=== PATIENT | male | born 1990 | race Caucasian/White ===

== ENCOUNTER 2024-04-01 10:06 | Outpatient (CLI) | payer BC, SELFPAY ==
--- NOTE | ~2024-04-01 | XR_ITS ---
Right elbow Technique: AP, oblique, and lateral views were obtained. Clinical History: Pain Findings: No acute fracture or dislocation is seen. Osseous alignment is anatomic. Joint spaces are p reserved. There is no displacement of the fat pads, and soft tissues are unremarkable. Impression: Unremarkable radiographs. Reviewed, dictated and finalized at location . Impression: Unremarkable radiographs.
== END 2024-04-01 10:07 ==
LOC: GOSHIMG 10:07
PROVIDERS: PCP Family Medicine; Visit Provider Nurse Practitioner Family
DX: M25.521 Pain in right elbow (principal)
CPT/HCPCS: 73080

== ENCOUNTER 2024-04-26 14:56 | Outpatient (RCR) | payer BC, SELFPAY ==
--- NOTE | 2024-04-26 16:01 | OTOPEVAL1 ---
Assessment and note entered by Vinnie Granado, FAYE/Jesse, CHT Evaluation Information Assessment Status Evaluation Diagnosis Bilateral elbow pain Subjective Information Patient reports popping sensation in bilateral medial elbows when working out, specifically when doing triceps strengthening/dips. He feels a popping or snapping sensation in the medial elbow. He reports it's become so painful that he's modified his triceps workouts. Denies pain with gripping. Reported Pain Level Pain Score 0: Self Report Additional Pain Score Comments No pain at rest. Pain with dips becomes so painful that he cannot do the exercise. Assessment OT Clinical Summary Patient referred to OT with bilateral elbow pain. We were able to recreate the snapping sensation at the medial elbow today with isolating the triceps with a theraband. During the exercise he appears to be feeling the ulnar nerve sublux over the medial epicondyle. With palpation, the ulnar nerve is tender proximally near the medial intermuscular septum. After some soft tissue work here and some stretching the nerve snapping appeared to be reduced. Issued stretching, strengthening, and nerve glides for patient to work on for improved flexibility. Plan to follow up with patient in 2 weeks to assess progress and evaluate readiness for discharge vs continued therapy visits. Plan of Care Interventions Therapeutic Exercise,Manual Therapy,Ultrasound OT Services Indicated Yes Treatment Frequency and 1x/week for 3 visits Duration These treatments will address the objective and functional deficits as defined above. The patient will be advanced safely and appropriately in order for the patient to progress towards his/her prior level of function. Additional exercises will be introduced and as well as a comprehensive home exercise program upon discharge, if needed, ?to ensure carryover of functional gains achieved in the clinic. This treatment plan has been reviewed and agreement upon by the patient.
--- NOTE | 2024-06-24 14:38 | OTOPDC ---
Assessment and note entered by Vinnie Granado, FAYE/Jesse, CHT OT Discharge Notification 06/24/24 OT Clinical Summary Patient initially evaluated by OT on 04/26/24 with bilateral elbow pain. He cancelled his follow up appointment and has not rescheduled a follow up. Discharging from OT services at this time.
== END 2024-06-24 15:03 | disposition home or self-care (01) ==
LOC: ANHGOSHOT 14:56
PROVIDERS: PCP Family Medicine; Visit Provider Nurse Practitioner Family
DX: M25.529 Pain in unspecified elbow (principal)
CPT/HCPCS: 97110; 97140; 97166

== ENCOUNTER 2024-08-25 14:17 | Outpatient (CLI) | payer BC, SELFPAY ==
--- NOTE | ~2024-08-25 | MR_ITS ---
EXAMINATION: MR hip LT wo con DATE: 08/25/2024 15:10 INDICATION: Left hip pain. TECHNIQUE: Magnetic resonance imaging (MRI) of the left hip was performed without intravenous contras t. COMPARISON: None FINDINGS: Bones/cartilage: Alignment is normal. No fracture. There is mild lumbar spondylosis. The femoral head/neck morphologie s are normal. Small [id number] images of left hip demonstrate normal cartilage. Labrum: The left acetabular labrum is intact. Fluid: There is no hip joint effusion. No trochanteric bursitis. Soft tissues: There is mild tendinopathy of the hamstring origins bilaterally. The iliopsoas tendons are normal. Th ere is mild bilateral gluteus minimus tendinopathy. The gluteus medius tendons are normal. IMPRESSION: 1. No specific etiology for the patient's symptoms. Reviewed, dictated and finalized at location A.
== END 2024-08-25 14:18 | disposition home or self-care (01) ==
LOC: GOSHIMG 14:18
PROVIDERS: PCP Family Medicine; Visit Provider Nurse Practitioner Family
DX: M25.552 Pain in left hip (principal); M79.605 Pain in left leg
CPT/HCPCS: 73721

== ENCOUNTER 2024-08-31 15:05 | Outpatient (CLI) | payer BC, SELFPAY ==
--- NOTE | ~2024-08-31 | XR_ITS ---
Lumbosacral Spine: AP, oblique, and lateral views Clinical History: Pain Findings: There are 6 lumbar type vertebral bodies. The normal lordotic curve is maintained. The patricia tebral bodies and posterior elements are intact. The intervertebral disc spaces are preserved. The sacroiliac joints are normally outlined. Impression: 6 lumbar type vertebral bodies. No other significant findings. Reviewed, dictated and finalized at location . Impression: 6 lumbar type vertebral bodies. No other significant findings.
== END 2024-08-31 15:06 | disposition home or self-care (01) ==
LOC: GOSHIMG 15:06
PROVIDERS: PCP Family Medicine; Visit Provider Family Medicine
DX: M54.42 Lumbago with sciatica, left side (principal); M79.605 Pain in left leg
CPT/HCPCS: 72110

== ENCOUNTER 2024-10-08 13:38 | Outpatient (CLI) | payer BC, SELFPAY ==
--- NOTE | ~2024-10-08 | MR_ITS ---
EXAMINATION: MR lumbar spine wo con DATE: 10/08/2024 14:09 INDICATION: Lumbago with left-sided sciatica TECHNIQUE: Magnetic resonance imaging (MRI) of the lumbar spine was performed without intravenous con trast. Sequences included sagittal T2-weighted FSE, sagittal T2-weighted FS FSE, sagittal T1-weighted FSE, and axial T2-weighted FSE. COMPARISON: None FINDINGS: Alignment is normal. Vertebral body heights are normal. Normal marrow signal. Disc desiccation with mild disc height loss at L4-L5. The conus medullaris terminates at L1. There is normal signal in the caudal spinal cord. Paravertebral soft tissues are unremarkable. The following disc levels are specif ically discussed: T11-T12: The disc does not extend beyond the endplate margin. There is no facet osteoarthritis. There is no neural foraminal stenosis. There is no central canal stenosis. T12-L1: Disc is minimally bulging. There is mild right facet joint osteoarthritis. There is no neural foraminal stenosis. There is no central canal stenosis. L1-L2: Disc is mildly bulging. There is mild bilateral facet joint osteoarthritis. There is minimal b ilateral neural foraminal stenosis. There is minimal central canal stenosis. L2-L3: Disc is mildly bulging. There is mild bilateral facet joint osteoarthritis. There is minimal b ilateral neural foraminal stenosis. There is minimal central canal stenosis. L3-L4: Disc is mildly bulging. There is mild right and mild to moderate left facet joint osteoarthrit is. There is mild bilateral neural foraminal stenosis. There is mild central canal stenosis. L4-L5: Mild to moderate diffuse disc bulge with superimposed annular fissure. There is mild bilateral facet joint osteoarthritis. There is mild to moderate bilateral neural foraminal stenosis. There is mild central canal stenosis. L5-S1: The disc does not extend beyond the endplate margin. There is moderate right and mild to moder ate left facet joint osteoarthritis. There is no neural foraminal stenosis. There is no central canal stenosis. IMPRESSION: 1. Minimal to mild lumbar spondylosis. 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
== END 2024-10-08 13:39 | disposition home or self-care (01) ==
LOC: GOSHIMG 13:39
PROVIDERS: PCP Family Medicine; Visit Provider Family Medicine
DX: M54.42 Lumbago with sciatica, left side (principal); M47.896 Other spondylosis, lumbar region
CPT/HCPCS: 72148

== ENCOUNTER 2024-10-20 15:52 | Emergency (ER) | payer BC, SELFPAY ==
[2024-10-20 16:01] VITALS: BP 139/81; PULSE 82; RESP 16; TEMP 36.7; O2SAT 100
--- NOTE | 2024-10-20 16:06 | ED_ITS ---
HPI - Male Genitourinary General Chief complaint: Urogenital-Male Stated complaint: left testicle pain, urinary fequency Source: patient and RN notes reviewed Mode of arrival: ambulatory Limitations: no limitations History of Present Illness HPI Narrative: 34 y/o male presented for c/o left testicular pain and swelling x3 days, and increased urinary frequency x1 week. Testicular Pain is worse with jogging or any rubbing onto the clothing, rating 8/10 at worst. Not taking anything for pain. Denies any concern for an STD at this time. Denies radiating pain, hematuria, nausea, vomiting, abdominal pain, flank pain, constipation, diarrhea, fevers or chills. Related Data Allergies Allergy/AdvReac Type Severity Reaction Status Date / Time No Known Allergies Allergy Mild Verified 10/20/24 16:14 Review of Systems Review of Systems: CONSTITUTIONAL: Denies body aches, fever, chills, or sweats. CARDIOVASCULAR: Denies chest pain, palpitations, or edema. RESPIRATORY: Denies cough or dyspnea. GASTROINTESTINAL: Denies abdominal pain, nausea, vomiting, or diarrhea. GENITOURINARY: Reports testicular pain, urinary frequency, denies dysuria, urgency, hematuria, flank pain SKIN: Denies rash, itching, or wounds. MUSCULOSKELETAL: Denies back pain or myalgia. [facility], [facility] Past Medical History Medical History (Updated 10/20/24 @ 16:26 by Steph Abrams APRN) Migraine without aura, not intractable, with status migrainosus OCD (obsessive compulsive disorder) Family History Family History Other Family history of headache disorder Social History Social History Smoking status: Never smoker Alcohol intake: current Comments At time of signature, I have reviewed and agree with nursing past medical, surgical, social and family history unless otherwise noted. Please see nursing chart for further information. There is no relevant family history pertinent to the presenting complaint Exam Narrative: GENERAL: Well-appearing ENT: Mucous membranes pink and moist. NECK: Normal AROM. Supple. CHEST: No respiratory distress. Clear to auscultation. HEART: Regular rate and rhythm. ABDOMEN: Soft, nontender, nondistended, normal active bowel sounds. No inguinal tenderness : Mild left testicular swelling and tenderness with palpation. No open wounds or apparent abscess. No urethral discharge. SKIN: Warm, dry, no rash. NEURO: Alert and oriented x3. Gait steady. PSYCH: Normal affect. Course Course Emergency Course: Patient is aware of diagnosis, understands and agrees to treatment plan. Anticipatory guidance given. Patient agrees to follow-up as directed and is aware of reasons to seek care at the emergency department. Portions of this record may have been created with voice recognition software Level of Care: Express Care Visit Vital Signs Vital signs: Vital Signs Temperature 98.1 F 10/20/24 16:01 Pulse Rate 82 10/20/24 16:01 Respiratory Rate 16 10/20/24 16:01 Blood Pressure 139/81 10/20/24 16:01 Pulse Oximetry 100 10/20/24 16:01 Temperature 98.1 F 10/20/24 16:01 Pulse Rate 82 10/20/24 16:01 Respiratory Rate 16 10/20/24 16:01 Blood Pressure 139/81 10/20/24 16:01 Pulse Oximetry 100 10/20/24 16:01 Reviewed MDM - Male Genitourinary MDM Narrative Medical decision making narrative: Pt presented with c/o left testicular pain and swelling. Advised ER transfer. Differential Diagnosis Differential diagnosis: Likely urinary tract infection, urethritis, epididymitis, genital herpes simplex, prostatitis and inguinal hernia Discharge Plan Discharge Clinical Impression: Left testicular pain Condition: Stable Prescriptions: No Action sumatriptan succinate 100 mg tablet See Rx Instructions .ROUTE .COMPLEX Qty: 27 3RF Dose Instruction: TAKE 1 TABLET AT ONSET OF HEADACHE. IF NO RELIEF, MAY REPEAT 1 TABLET IN 2 HOURS. MAX 2 TABLETS IN 24 HOURS. Rx Instructions: TAKE 1 TABLET AT ONSET OF HEADACHE. IF NO RELIEF, MAY REPEAT 1 TABLET IN 2 HOURS. MAX 2 TABLETS IN 24 HOURS. alprazolam [Xanax] 0.25 mg tablet 0.25 mg PO TID Qty: 30 1RF finasteride [Propecia] 1 mg tablet 1 mg PO DAILY Qty: 90 3RF Aimovig Autoinjector 140 mg/mL auto-injector 140 mg subcut MONTHLY Qty: 1 5RF Follow-up/Referrals: Kai Massey MD [Primary Care Provider] - Time of Disposition: 16:25
== END 2024-10-20 16:20 | disposition short-term general hospital (02) ==
PROVIDERS: Emergency Provider Nurse Practitioner Family; PCP Family Medicine
DX: N50.812 Left testicular pain (principal)
CPT/HCPCS: 99212; G0463

== ENCOUNTER 2024-10-20 16:40 | Emergency (ER) | payer BC, SELFPAY ==
--- NOTE | ~2024-10-20 | US_ITS ---
EXAMINATION: US scrotum doppler DATE: 10/20/2024 18:33 INDICATION: Left testicular pain TECHNIQUE: Testicular sonogram utilizing grayscale and Doppler COMPARISON: 09/24/2016 FINDINGS: The right testis measures 6.1 x 3.3 x 2.9 cm. The left testis measures 4.3 x 2.8 x 2.1 cm. Normal gra yscale the right testis. The left testis demonstrates a striated pattern of hypoechoic echogenicity a long with numerous tiny echogenic calcifications consistent with left testicular microlithiasis. Ther e is normal vascular flow to both testes. The right epididymis is normal with normal vascular flow. T he left epididymis is normal with normal vascular flow. Minimal left hydrocele. Chronic left-sided va ricocele with vessels measuring up to 4 mm which augment with Valsalva. IMPRESSION: 1. Normal vascular flow to the bilateral testes and epididymides. 2. Normal right testis and stable appearance since 2015 of a relatively mildly atrophic left testis w ith striated pattern of echogenicity and prominent microlithiasis which is of indeterminate etiology. 3. Minimal left hydrocele and chronic left varicocele. Reviewed, dictated and finalized at location A. 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 Normal vascular flow to the bilateral testes and epididymides. 2. Normal right testis and stable appearance since 2015 of a relatively mildly atrophic left testis with striated pattern of echogenicity and prominent microl ithiasis which is of indeterminate etiology. 3. Minimal left hydrocele and chronic left varicocele.
[2024-10-20 16:41] VITALS: BP 157/82; PULSE 81; RESP 18; TEMP 36.2; O2SAT 100
--- NOTE | 2024-10-20 17:57 | ED.MALEGU ---
HPI - Male Genitourinary General Chief complaint: Urogenital-Male Stated complaint: left testicular pain Time Seen by Provider: 10/20/24 17:10 Source: patient Mode of arrival: ambulatory Limitations: no limitations History of Present Illness HPI Narrative: this is a 34-year-old male that presents to the emergency department for testicular pain. Reports he has been having urinary frequency over the last week. Last couple of days he is noted pain and swelling to the left testicle. Denies fevers, dysuria, or hematuria. Related Data Allergies Allergy/AdvReac Type Severity Reaction Status Date / Time No Known Allergies Allergy Mild Verified 10/20/24 16:14 Review of Systems Review of Systems: CONSTITUTIONAL: Denies fever GASTROINTESTINAL: Denies abdominal pain, nausea, vomiting GENITOURINARY: Denies dysuria or hematuria. All systems reviewed & are unremarkable except as noted in HPI and below PMFSH Past Medical History Medical History (Updated 10/20/24 @ 19:06 by Leonor Hutchinson PA-C) Migraine without aura, not intractable, with status migrainosus OCD (obsessive compulsive disorder) Family History Family History Other Family history of headache disorder Social History Social History Smoking status: Never smoker Alcohol intake: current Exam Narrative: GENERAL: Well-appearing, well-nourished, and in no acute distress. HEAD: Normocephalic, atraumatic. EYES: EOMI. CHEST: No respiratory distress. HEART: Regular rate EXTREMITIES: Normal range of motion. No edema. SKIN: Warm, dry, no rash. NEURO: No focal deficits. Alert and oriented x3. PSYCH: Normal mood and affect Course Course Emergency Course: patient updated on his workup and agrees with plan of care Vital Signs Vital signs: Vital Signs Temperature 97.1 F L 10/20/24 16:41 Pulse Rate 81 10/20/24 16:41 Respiratory Rate 18 10/20/24 16:41 Blood Pressure 157/82 H 10/20/24 16:41 Pulse Oximetry 100 10/20/24 16:41 Oxygen Delivery Room Air 10/20/24 16:41 Temperature 97.1 F L 10/20/24 16:41 Pulse Rate 81 10/20/24 16:41 Respiratory Rate 18 10/20/24 16:41 Blood Pressure 157/82 H 10/20/24 16:41 Pulse Oximetry 100 10/20/24 16:41 Oxygen Delivery Room Air 10/20/24 16:41 MDM - Male Genitourinary MDM Narrative Medical decision making narrative: patient presents the emergency department for left testicular pain. Urine without evidence of infection. Chlamydia, gonorrhea and Trichomonas tests are negative. Scrotal ultrasound shows normal vascular flow to the bilateral testes and epididymis. Stable appearance mildly atrophic left testes with prominent microlithiasis. Minimal left hydrocele and chronic varicocele. Patient updated on his workup and agree with plan of care. Will be given follow-up with urology. He was given warnings to return to the ER Differential Diagnosis Differential diagnosis: Likely urinary tract infection, urethritis, epididymitis and other ( orchitis, varicocele, testicular torsion, STD) Lab Data Attestation: I reviewed the patient's lab results. Labs: Lab Results 10/20/24 Range/Units 17:51 Urine Color Yellow (Yellow) Urine Appearance Clear (Clear) Urine pH 7.0 (5.0-9.0) Ur Specific [place] 1.014 (1.001-1.035) Urine Protein Negative (Negative) mg/dL Urine Glucose (UA) Negative (Negative) mg/dL Urine Ketones Negative (Negative) mg/dL Ur Blood (Man) Negative (Negative) Urine Nitrate Negative (Negative) Urine Bilirubin Negative (Negative) Urine Urobilinogen 1.0 (<2.0) mg/dL Leukocyte Esterase Rfl Negative (Negative) BISHOP/UL C. trachomatis (PCR) Not detected (NOT DETECTE) N. gonorrhoeae (PCR) Not detected (NOT DETECTE) T. vaginalis (PCR) Not detected (NOT DETECTE) Imaging Data Radiologist's impression: ITS Impressions Scrotum Ultrasound 10/20/24 18:52 IMPRESSION: 1. Normal vascular flow to the bilateral testes and epididymides. 2. Normal right testis and stable appearance since 2015 of a relatively mildly atrophic left testis with striated pattern of echogenicity and prominent microlithiasis which is of indeterminate etiology. 3. Minimal left hydrocele and chronic left varicocele. Critical Care Time Critical Care Time Critical Care Time: No Discharge Plan Discharge Clinical Impression: Varicocele, Left testicular pain, Testicular microlithiasis Patient Disposition: Home, Self-Care Condition: Stable Instructions: Testicle Pain (ED) Additional Instructions: Return to the ER if you experience fever, abdominal pain with nausea and vomiting, you are unable to keep down liquids or solids, pain or burning with urination, blood in the urine or any other symptoms that are concerning to you Were good scrotal supporting underwear. Tylenol or anti-inflammatories as needed for pain Follow up with urology Prescriptions: No Action sumatriptan succinate 100 mg tablet See Rx Instructions .ROUTE .COMPLEX Qty: 27 3RF Dose Instruction: TAKE 1 TABLET AT ONSET OF HEADACHE. IF NO RELIEF, MAY REPEAT 1 TABLET IN 2 HOURS. MAX 2 TABLETS IN 24 HOURS. Rx Instructions: TAKE 1 TABLET AT ONSET OF HEADACHE. IF NO RELIEF, MAY REPEAT 1 TABLET IN 2 HOURS. MAX 2 TABLETS IN 24 HOURS. alprazolam [Xanax] 0.25 mg tablet 0.25 mg PO TID Qty: 30 1RF finasteride [Propecia] 1 mg tablet 1 mg PO DAILY Qty: 90 3RF Aimovig Autoinjector 140 mg/mL auto-injector 140 mg subcut MONTHLY Qty: 1 5RF Follow-up/Referrals: Socorro Samaniego MD [Physician] - Kai Massey MD [Primary Care Provider] -
[2024-10-20 17:59] LABS: Add Urine Microscopic? NO; Appearance Urine Clear (Clear); Bilirubin Urine Negative (Negative); Blood Urine Negative (Negative); Color Urine Yellow (Yellow); Glucose Urine UA Negative (Negative); Ketones Urine Negative (Negative); Leukocyte Esterase Ur Negative LEU/UL (Negative); Nitrate Urine Negative (Negative); Protein Urine Negative (Negative); Specific Grav Ur 1.014 (1.001-1.035)
[2024-10-20 19:36] LABS: Trichomonas Vag PCR NOT DETECTED (NOT DETECTE)
[2024-10-20 20:00] LABS: Chlamydia trachomatis NOT DETECTED (NOT DETECTE); Neisseria gonorrhoeae PCR NOT DETECTED (NOT DETECTE)
[2024-10-20 20:30] VITALS: BP 120/75; PULSE 62; RESP 18; TEMP 36.4; O2SAT 100
== END 2024-10-20 20:31 | disposition home or self-care (01) ==
PROVIDERS: Emergency Provider Physician Assistant; PCP Family Medicine
DX: I86.1 Scrotal varices (principal); N50.89 Other specified disorders of the male genital organs
CPT/HCPCS: 76870; 81003; 87491; 87591; 87661; 93976; 99284

== ENCOUNTER 2024-11-15 06:26 | Inpatient (IN) | payer BC, SELFPAY ==
[2024-11-15] VITALS (23 sets, daily range): BP systolic 120–160; BP diastolic 67–84; PULSE 62–97; RESP 10–22; TEMP 36.6–37.3; O2SAT 94–100; BMI 26.6
--- NOTE | ~2024-11-15 | CT_ITS ---
EXAMINATION: CTA chest abdomen pelvis DATE: 11/15/2024 07:47 INDICATION: Left upper chest pain. Low back pain. Testicular pain. TECHNIQUE: Computed tomographic angiography (CTA) of the chest, abdomen, and pelvis was performed wit h 100 mL Omnipaque-350 intravenous contrast. Automated exposure control and iterative reconstruction technique were employed. The dose-length product was 724.21 mGy-cm. Maximum intensity projection 3D-r econstructions of the aorta and other arteries were constructed by the technologist on a separate wor kstation. COMPARISON: None. FINDINGS: CHEST CTA: There is minimal atelectasis in right lower lobe. No pleural effusion. The heart size is normal. No p ericardial effusion. Thoracic aorta is normal. There is no pulmonary embolus. There is mild thoracic spondylosis. ABDOMEN AND PELVIS CTA: There are cysts in the liver measuring up to 5 mm. The gallbladder, spleen, pancreas, adrenal glands, and kidneys are normal. There are no dilated loops of bowel. The appendix is normal. There is a 7.1 x 4.9 x 7.5 cm mass in left para-aortic region. There is no free intraperitoneal fluid. Abdominal aor ta is normal. There is no significant stenosis of celiac axis, superior mesenteric artery, the renal arteries, or inferior mesenteric artery. There is mild lumbar spondylosis. IMPRESSION: 1. 7.1 x 4.9 x 7.5 cm left para-aortic mass suspicious for malignancy such as sarcoma. CT-guided biop sy is recommended. 2. Normal aorta. Reviewed, dictated and finalized at location A. CTOR OF PLANT OPERATIONS IMPRESSION: 1. 7.1 x 4.9 x 7.5 cm left para-aortic mass suspicious for malignancy such as s arcoma. CT-guided biopsy is recommended. 2. Normal aorta.
--- NOTE | ~2024-11-15 | CT_ITS ---
EXAMINATION: CT biopsy abdomen percutaneous DATE: 11/15/2024 12:12 INDICATION: Left para-aortic mass. TECHNIQUE: The procedure including the risks, benefits, and alternatives was discussed with the patie nt. Risks discussed included bleeding and infection. The patient verbalized understanding of the risk s and agreed to proceed. The skin overlying the liver was prepped and draped in usual sterile fashio n. Anesthetic was administered with 1% lidocaine subcutaneously. A 16 gauge outer needle was advanc ed under CT guidance into the liver. An 18 gauge core biopsy needle was then used to obtain 3 core bi opsy specimens. The mA was adjusted according to patient size. Iterative reconstruction technique was employed. The dose-length product was 191.79 mGy-cm. The needle was removed and the entry site was c leaned and dressed. There were no immediate complications. FINDINGS: CT images demonstrate the outer needle tip adjacent to a 7 cm left para-aortic mass. IMPRESSION: 1. CT-guided core needle biopsy of a left para-aortic mass. Reviewed, dictated and finalized at location A. RISK AND ASSURANCE MANAGER
--- NOTE | ~2024-11-15 | XR_ITS ---
EXAMINATION: XR chest 1V portable DATE: 11/15/2024 06:48 INDICATION: Left chest and flank pain. TECHNIQUE: A single frontal view of the chest was obtained on 2 radiographs. COMPARISON: None. FINDINGS: There is no pneumonia, pleural effusion, or pneumothorax. The heart size is normal. IMPRESSION: 1. No acute cardiopulmonary disease. Reviewed, dictated and finalized at location A. ICAL SERVICES MANAGER
--- NOTE | 2024-11-15 06:27 | ECG_ITS ---
Test Date: 2024-11-15 06:34:37 Measurements Intervals [place] Rate: 80 P: 78 CO: 116 QRS: 57 QRSD: 108 T: 48 QT: 373 QTc: 433 Interpretive Statements SINUS RHYTHM WITH SHORT CO INTERVAL No previous ECG available for comparison Electronically Signed On 11-16-2024 14:51:15 VISION IMPAIRED TEACHER by Raman Christensen M.D.
[2024-11-15 06:43] LABS: Basophils Percent Auto 0.5 % (0.2-1.2); Eosinophils Absolute Auto 0.2 K/mm3 (0-0.3); Hematocrit 40.6 % (42.0-52.0); Hemoglobin 14.6 g/dL (14.0-18.0); Immature Granulocyte Absolute 0.02 K/mm3 (0.00-0.031); Immature Granulocyte Percent A 0.2 % (0-0.5); Lymphocytes Absolute Auto 3.53 K/mm3 (0.9-3.2); Lymphocytes Percent Auto 39.8 % (18.3-44.2); Mean Corpuscular Hemoglobin 29.6 pg (26-34); Mean Corpuscular Volume 82.4 fl (80-100); Mean Platelet Volume 9.2 fl (7.4-10.4); Monocytes Absolute Auto 0.8 K/mm3 (0.1-0.6); Monocytes Percent Auto 9.1 % (2.6-8.5); Neutrophils Absolute Auto 4.3 K/mm3 (1.3-6.7); Neutrophils Percent Auto 48.4 % (45.5-73.1); Platelet Count Result 252 k/mm3 (150-375); Red Blood Count 4.93 M/mm3 (4.6-6.20); White Blood Count 8.9 K/mm3 (4.5-10.0)
[2024-11-15 06:57] LABS: INR 1.1; Partial Thromboplastin Time 28.2 Seconds (22.3-36.8); Prothrombin Time 14.3 Seconds (11.1-14.7)
[2024-11-15 06:59] LABS: Alanine Aminotransferase 20 U/L (6-50); Albumin Level 4.4 g/dL (3.5-5.1); Alkaline Phosphatase 49 U/L (38-126); Anion Gap 5 mmol/L (4-12); Aspartate Amino Transferase 32 U/L (17-59); Bilirubin,Total 0.9 mg/dL (0.2-1.3); Blood Urea Nitrogen 21 mg/dL (9-20); Calcium 9.3 mg/dL (8.4-10.2); Carbon Dioxide 31 mmol/L (22-30); Chloride 104 mmol/L (98-107); Estimated CRCL calculation 96 ml/min; Estimated Glomerular Filt Rate > 60; Glucose 90 mg/dL (65-110); Lipase 87 U/L (23-300); Potassium 3.5 mmol/L (3.4-5.0); Sodium 140 mmol/L (137-145)
[2024-11-15 07:10] LABS: Troponin I < 0.012 ng/mL (0.000-0.034)
--- NOTE | 2024-11-15 07:39 | ED_ITS ---
HPI - Chest Pain General Chief Complaint: Chest Pain Stated Complaint: Chest pain Time Seen by Provider: 11/15/24 07:03 History of Present Illness HPI narrative: 34-year-old male with no significant pertinent past medical history aside from migraine headaches and chronic lumbar back pain. Patient presents to the emergency department today with chief complaint of 3 days of pleuritic and positional chest pain in the high left-sided chest. Patient states he was not doing anything particularly strenuous or murmur will and he had vague chest pain throughout the day 3 days ago that has been coming and going and worse with positional changes such as lying down flat and taking deep breaths. He also has a longstanding history of chronic left-sided sciatica and lumbago pain even though he has had negative CT and MRI imaging of his lumbar back, hip and has failed physical therapy outpatient without any improvement of his symptoms and previous medication regimen such as injections. He has also had complaints of left-sided testicular pain and was recently seen here in the emergency department. Patient has no known history of atherosclerosis, cardiac disease or any aortic pathology or any family history of such. Denies any difficulty breathing aside from the sharp pain when he takes deep breath. No nausea, vomiting, abdominal pain, fever, chills. No dysuria or hematuria. No present testicular pain, pain is mostly situated in his high left-sided chest wall and left-sided low back. Does not take any blood pressure medications. Related Data Allergies Allergy/AdvReac Type Severity Reaction Status Date / Time No Known Allergies Allergy Mild Verified 11/15/24 06:34 Review of Systems 2 Review of Systems: As reviewed above in HPI [facility] Past Medical History Medical History (Updated 11/15/24 @ 09:31 by Binu Duran MD) OCD (obsessive compulsive disorder) Migraine without aura, not intractable, with status migrainosus Family History Family History Other Family history of headache disorder Social History Social History Smoking status: Never smoker Alcohol intake: current Exam 2 Narrative: GENERAL: [Well-appearing, well-nourished, and in no acute distress.] HEAD: [Normocephalic, atraumatic.] EYES: [PERRLA and EOMI.] ENT: Nares clear, no rhinorrhea or epistaxis. Mucous membranes moist. NECK: Supple. CHEST: [Clear to auscultation. No respiratory distress.] HEART: [Regular rate and rhythm]. No murmur heard. [Normal peripheral pulses.] ABDOMEN: [Soft, nondistended], [nontender], [No rigidity or guarding] EXTREMITIES: Normal range of motion. [No edema.] SKIN: Warm, dry, no rash. NEURO: [No focal deficits]. Alert and oriented [x3.] PSYCH: [Normal mood and affect.] Course Vital Signs Vital signs: Vital Signs Temperature 36.6 C 11/15/24 06:30 Pulse Rate 81 11/15/24 06:30 Respiratory Rate 12 11/15/24 06:30 Blood Pressure 136/82 11/15/24 06:30 Pulse Oximetry 100 11/15/24 06:30 Oxygen Delivery Room Air 11/15/24 06:30 Temperature 36.6 C 11/15/24 06:30 Pulse Rate 70 11/15/24 08:16 Respiratory Rate 17 11/15/24 08:16 Blood Pressure 122/81 11/15/24 08:16 Pulse Oximetry 100 11/15/24 08:16 Oxygen Delivery Room Air 11/15/24 07:23 MDM - Chest Pain MDM Narrative Medical decision making narrative: 34-year-old male presenting with a constellation of complaints including left- sided upper chest pain, left-sided low back pain, intermittent left testicular pain which is absent presently. Patient states that he is mostly concerned about the chest pain S this is new for him for the last 3 days. Located in the left chest and worse with deep inhalation and lying down flat. He has had large unremarkable workup for his lumbago and sciatica type pain and treated conservatively with medications and physical therapy without any relief of his symptoms. He has no focal neurological deficits, no evidence of trauma, no recent injuries or illnesses. He has clear breath sounds throughout, does do elicit pain with the breathing in this chest. Vital signs are reassuring without any significant blood pressure concerns, tachycardia, fever, hypoxia. Patient is worried about his chest pain and progression from his left-sided symptoms including previous left testicular pain left-sided low back pain. Overall risks are very low for aortic pathology however all as consultation symptoms are unilateral on the left side and crossing the diaphragm which does raise suspicion for potential aortic symptoms. Very unlikely be ACS however his chest pain could be pleurisy, bronchitis, less likely pneumonia or pneumothorax. Overall I did discuss with the patient options going forward including laboratory studies and even CT imaging. Patient felt more comfortable with obtaining a angiogram to help better delineate his symptoms as he has had no explanation relief of his symptoms previously. Cardiac workup was ordered including EKG, chest x-ray, troponin, CT angiography of the chest abdomen pelvis with attention to the left side was ordered. Patient was provided Toradol for analgesia. Workup shows no leukocytosis or anemia. Normal platelets. Coagulation studies within normal limits. Electrolytes within normal limits, normal renal and hepatic function panel. Normal glucose. Undetectable troponin. Negative lipase. I looked at the chest x-ray and not see any kind of pneumonia, pleural effusion or any pneumothorax. Unremarkable per Radiology interpretation. CT angiography shows a very suspicious periaortic mass measuring 7.1 x 4.9 x 7.5 cm with differential including sarcoma with recommendations for CT-guided biopsy. Unremarkable normal appearing aorta otherwise. I re-evaluated the patient to improvement in his pain after medications and we discussed the CT imaging findings. I went over next steps with the patient including recommendations for CT-guided biopsy and will attempt to call the radiologist available to see if we can do this today or schedule this and see if we need to admit the patient for remainder of workup here. Awaiting call back from Radiology Department at this time. Spoke to Dr. Sigala from Radiology and they stated that CT-guided biopsy can happen today, Dr Walsh as currently in another biopsy but will be made aware of the case. Coagulation studies are obtained and normal. Patient's laboratory studies are otherwise unremarkable. He will be admitted for workup and guided biopsy today. Spoke to the hospitalist Dr. Li and we went over the patient's case, imaging studies and plan of care and patient will be admitted at this time to [facility]. Medical Records Data Attestation: I reviewed the patient's medical records. Lab Data Attestation: I reviewed the patient's lab results. 11/15/24 06:35 11/15/24 06:35 Labs: Lab Results 11/15/24 11/15/24 Range/Units 06:35 08:03 WBC 8.9 (4.5-10.0) K/mm3 RBC 4.93 (4.6-6.20) M/mm3 Hgb 14.6 (14.0-18.0) g/dL Hct 40.6 L (42.0-52.0) % MCV 82.4 (80-100) fl MCH 29.6 (26-34) pg MCHC 36.0 (32-36) g/dl RDW 12.0 (11.5-14.5) % Plt Count 252 (150-375) k/mm3 MPV 9.2 (7.4-10.4) fl Immature Gran % (Auto) 0.2 (0-0.5) % Neut % (Auto) 48.4 (45.5-73.1) % Lymph % (Auto) 39.8 (18.3-44.2) % Dunn % (Auto) 9.1 H (2.6-8.5) % Eos % (Auto) 2.0 (0-4.4) % Baso % (Auto) 0.5 (0.2-1.2) % Lymph # (Auto) 3.53 H (0.9-3.2) K/mm3 Dunn # (Auto) 0.8 H (0.1-0.6) K/mm3 Eos # (Auto) 0.2 (0-0.3) K/mm3 Baso # (Auto) 0.0 (0.0-0.1) K/mm3 Abs Immat Gran (auto) 0.02 (0.00-0.031) K/mm3 Absolute Neuts (auto) 4.3 (1.3-6.7) K/mm3 Absolute Nucleated RBC 0.000 (0.0-0.012) K/mm3 Nucleated RBC % 0.0 (0.0-0.2) % PT 14.3 (11.1-14.7) Seconds INR 1.1 APTT 28.2 (22.3-36.8) Seconds Sodium 140 (137-145) mmol/L Potassium 3.5 (3.4-5.0) mmol/L Chloride 104 (98-107) mmol/L Carbon Dioxide 31 H (22-30) mmol/L Anion Gap 5 (4-12) mmol/L BUN 21 H (9-20) mg/dL Creatinine 1.00 (0.7-1.3) mg/dL Estim Creat Clear Calc 96 ml/min Estimated GFR > 60 (59 - ) Glucose 90 (65-110) mg/dL Calcium 9.3 (8.4-10.2) mg/dL Total Bilirubin 0.9 (0.2-1.3) mg/dL AST 32 (17-59) U/L ALT 20 (6-50) U/L Alkaline Phosphatase 49 (38-126) U/L Troponin I < 0.012 (0.000-0.034) ng/mL Total Protein 8.0 (6.3-8.2) g/dL Albumin 4.4 (3.5-5.1) g/dL Lipase 87 (23-300) U/L Influenza A (RT-PCR) Negative (Negative) Influenza B (RT-PCR) Negative (Negative) RSV (RT-PCR) Negative (Negative) SARS-CoV-2 RNA (RT-PCR) Negative (Negative) Imaging Data Attestation: I personally reviewed and interpreted this imaging study as follows: My impression: Impressions Chest X-Ray 11/15/24 06:48 IMPRESSION: 1. No acute cardiopulmonary disease. Chest/Abdomen/Pelvis CTA 11/15/24 07:48 IMPRESSION: 1. 7.1 x 4.9 x 7.5 cm left para-aortic mass suspicious for malignancy such as sarcoma. CT-guided biopsy is recommended. 2. Normal aorta. Discharge Plan Discharge Clinical Impression: Abdominal mass, Chest pain on breathing, Back pain Patient Disposition: Still a Patient Condition: Stable Patient Language: Turkmen Prescriptions: No Action sumatriptan succinate 100 mg tablet See Rx Instructions .ROUTE .COMPLEX Qty: 27 3RF Dose Instruction: TAKE 1 TABLET AT ONSET OF HEADACHE. IF NO RELIEF, MAY REPEAT 1 TABLET IN 2 HOURS. MAX 2 TABLETS IN 24 HOURS. Rx Instructions: TAKE 1 TABLET AT ONSET OF HEADACHE. IF NO RELIEF, MAY REPEAT 1 TABLET IN 2 HOURS. MAX 2 TABLETS IN 24 HOURS. prednisone 10 mg tablet See Rx Instructions PO DAILY Qty: 42 0RF Rx Instructions: 6 po qdayx 2 days, 5 x 2days,4 x 2 d,3 x 2d,2 x 2d, 1 x 2 days PO daily; gabapentin 300 mg capsule 300 mg PO BID Qty: 30 0RF alprazolam [Xanax] 0.25 mg tablet 0.25 mg PO TID Qty: 30 1RF finasteride [Propecia] 1 mg tablet 1 mg PO DAILY Qty: 90 3RF Aimovig Autoinjector 140 mg/mL auto-injector 140 mg subcut MONTHLY Qty: 1 5RF Follow-up/Referrals: Kai Massey MD [Primary Care Provider] - Time of Disposition: 09:31
[2024-11-15] MEDS: KETOROLAC 15 MG/ML VIAL (*BKC) IV PUSH ×2 (08:06→18:09)
[2024-11-15 08:44] LABS: Influenza A QL RT-PCR Negative (Negative); Influenza B QL RT-PCR Negative (Negative); RSV RNA, RT-PCR Negative (Negative); SARS-CoV-2 RNA PCR Negative (Negative)
[2024-11-15] MEDS: ALPRAZolam (*CRX) 0.5 MG TABLET PO (09:18)
--- NOTE | 2024-11-15 09:22 | ECG_ITS ---
Test Date: 2024-11-15 09:27:04 Measurements Intervals [place] Rate: 75 P: 79 TN: 139 QRS: 61 QRSD: 110 T: 49 QT: 387 QTc: 432 Interpretive Statements SINUS RHYTHM Compared to ECG 11/15/2024 06:34:37 Short TN interval no longer present Electronically Signed On 11-16-2024 14:52:30 TRACK MECHANIC by Raman Christensen M.D.
[2024-11-15 10:00] LABS: Troponin I < 0.012 ng/mL (0.000-0.034)
--- NOTE | 2024-11-15 10:35 | ADMGEN ---
This patient, Kai Greene, was admitted to [facility] Surg Room 331-02. Patient/family oriented to hospital policies and general routines including ID bracelet, bed and alarms, visiting hours, pain management, procedures, bathroom and other care routines, personal items, smoking policy, room service/diet, and visiting hours. Information on how to activate the Rapid Response Team has been discussed. Patient/Family are encouraged to report perceived risks to care and to ask questions if they do not understand what they are told or what they should do.
--- NOTE | 2024-11-15 11:28 | PC.NURSE ---
Pt. down to get biopsy via wheelchair.
--- NOTE | 2024-11-15 12:11 | P.HP_ITS ---
H&P: HPI History of Present Illness Date/Time: 11/15/24 12:11 Chief Complaint: Left side flank pain. Narrative: 34-year-old with no past medical history presents to the hospital with left- sided flank pain. Found to have 7.1 x 4.9 x 7.5 cm left para-aortic mass suspicious for malignancy such as sarcoma on CT. CT-guided biopsy is recommended. [facility] Past Medical History Medical History (Updated 11/15/24 @ 12:15 by Josefina Dalton, NENA) OCD (obsessive compulsive disorder) Migraine without aura, not intractable, with status migrainosus Family History Family History Other Family history of headache disorder Social History Social History Smoking status: Never smoker Alcohol intake: never Substance use: never Do You Feel Safe in your Home?: Yes Lack of Transportation: No Lack of Food: Never True Current Housing: I Have Housing Concerned About Future Housing: No Difficulty Paying Gas/Electric Bills: No Difficulty Paying for Meds: No Currently Unemployed: No Education: Master's Degree or Higher Difficulty w/ Childcare or Family Care: No Spiritual care concerns: No Meds Home Medications and Allergies Home Medications ?Medication ?Instructions ?Recorded ?Confirmed ?Type finasteride 1 mg tablet (Propecia) 1 mg PO DAILY #90 tabs 02/04/24 11/15/24 Rx erenumab-aooe 140 mg/mL 140 mg subcut MONTHLY #1 mL 08/13/24 11/15/24 Rx subcutaneous auto-injector (Aimovig Autoinjector) gabapentin 300 mg capsule 300 mg PO BID #30 caps 11/11/24 11/15/24 Rx prednisone 10 mg tablet See Rx Instructions PO DAILY #42 11/11/24 11/15/24 Rx tabs alprazolam 0.25 mg tablet (Xanax) 0.25 mg PO TID PRN anxiety 11/15/24 11/15/24 History sumatriptan succinate 100 mg tablet See Rx Instructions .Route 11/15/24 11/15/24 History .COMPLEX PRN migraine headache Allergies Allergy/AdvReac Type Severity Reaction Status Date / Time No Known Allergies Allergy Mild Verified 11/15/24 10:41 Vital Signs Vital Signs - 24 hr 11/15/24 06:30 11/15/24 06:40 11/15/24 07:22 Temperature 98 F Pulse Rate 81 76 Respiratory Rate 12 Blood Pressure 136/82 Pulse Oximetry 100 100 Oxygen Delivery Room Air Room Air 11/15/24 07:22 11/15/24 07:23 11/15/24 07:38 Temperature Pulse Rate 76 68 Respiratory Rate 16 16 Blood Pressure 120/74 Pulse Oximetry 100 100 99 Oxygen Delivery Room Air Room Air 11/15/24 08:04 11/15/24 08:10 11/15/24 08:11 Temperature Pulse Rate 66 67 65 Respiratory Rate 15 10 L 17 Blood Pressure 123/69 Pulse Oximetry 100 100 99 Oxygen Delivery 11/15/24 08:15 11/15/24 08:16 11/15/24 08:17 Temperature Pulse Rate 62 70 68 Respiratory Rate 16 17 16 Blood Pressure 122/81 Pulse Oximetry 100 100 100 Oxygen Delivery 11/15/24 08:45 11/15/24 09:00 11/15/24 09:01 Temperature Pulse Rate 73 85 76 Respiratory Rate 17 22 H 12 Blood Pressure 160/80 H Pulse Oximetry 94 100 Oxygen Delivery 11/15/24 09:15 11/15/24 09:16 11/15/24 09:30 Temperature Pulse Rate 80 97 77 Respiratory Rate 12 19 13 Blood Pressure 137/80 Pulse Oximetry 100 98 100 Oxygen Delivery 11/15/24 09:45 11/15/24 10:00 11/15/24 10:15 Temperature Pulse Rate 80 84 80 Respiratory Rate 15 13 11 L Blood Pressure Pulse Oximetry 99 94 100 Oxygen Delivery 11/15/24 10:19 11/15/24 10:45 11/15/24 10:52 Temperature 99.1 F Pulse Rate 73 71 Respiratory Rate 18 20 Blood Pressure 126/84 Pulse Oximetry 99 100 Oxygen Delivery Room Air H&P: Results Labs Labs: Short CBC 11/15/24 Range/Units 06:35 WBC 8.9 (4.5-10.0) K/mm3 Hgb 14.6 (14.0-18.0) g/dL Hct 40.6 L (42.0-52.0) % Plt Count 252 (150-375) k/mm3 BMP 11/15/24 06:35 Sodium 140 Potassium 3.5 Chloride 104 Carbon Dioxide 31 H BUN 21 H Creatinine 1.00 Glucose 90 Calcium 9.3 Cardiac Enzymes 11/15/24 11/15/24 Range/Units 06:35 09:28 Troponin I < 0.012 < 0.012 (0.000-0.034) ng/mL Liver Function 11/15/24 Range/Units 06:35 Total Bilirubin 0.9 (0.2-1.3) mg/dL AST 32 (17-59) U/L ALT 20 (6-50) U/L Alkaline Phosphatase 49 (38-126) U/L Albumin 4.4 (3.5-5.1) g/dL Assessment and Plan Assessment and plan (1) Left kidney mass: Code(s): N28.89 - Other specified disorders of kidney and ureter Status: Acute Assessment and Plan: 7.1 x 4.9 x 7.5 cm left para-aortic mass suspicious for malignancy such as sarcoma. CT-guided biopsy is recommended. Plan for IR biopsy while in hospital
--- NOTE | 2024-11-15 12:42 | PM.IMHP ---
H&P: HPI History of Present Illness Date/Time: 11/15/24 12:42 Narrative: 34-year-old with no past medical history presents to the hospital with left-sided flank pain. Found to have 7.1 x 4.9 x 7.5 cm left para-aortic mass suspicious for malignancy such as sarcoma on CT. CT-guided biopsy is recommended. [facility] Past Medical History Medical History (Updated 11/15/24 @ 12:15 by Josefina Dalton, NENA) OCD (obsessive compulsive disorder) Migraine without aura, not intractable, with status migrainosus Family History Family History Other Family history of headache disorder Social History Social History Smoking status: Never smoker Alcohol intake: never Substance use: never Do You Feel Safe in your Home?: Yes Lack of Transportation: No Lack of Food: Never True Current Housing: I Have Housing Concerned About Future Housing: No Difficulty Paying Gas/Electric Bills: No Difficulty Paying for Meds: No Currently Unemployed: No Education: Master's Degree or Higher Difficulty w/ Childcare or Family Care: No Spiritual care concerns: No Meds Home Medications and Allergies Home Medications ?Medication ?Instructions ?Recorded ?Confirmed ?Type finasteride 1 mg tablet (Propecia) 1 mg PO DAILY #90 tabs 02/04/24 11/15/24 Rx erenumab-aooe 140 mg/mL 140 mg subcut MONTHLY #1 mL 08/13/24 11/15/24 Rx subcutaneous auto-injector (Aimovig Autoinjector) gabapentin 300 mg capsule 300 mg PO BID #30 caps 11/11/24 11/15/24 Rx prednisone 10 mg tablet See Rx Instructions PO DAILY #42 11/11/24 11/15/24 Rx tabs alprazolam 0.25 mg tablet (Xanax) 0.25 mg PO TID PRN anxiety 11/15/24 11/15/24 History sumatriptan succinate 100 mg tablet See Rx Instructions .Route 11/15/24 11/15/24 History .COMPLEX PRN migraine headache Allergies Allergy/AdvReac Type Severity Reaction Status Date / Time No Known Allergies Allergy Mild Verified 11/15/24 10:41 Vital Signs Vital Signs - 24 hr 11/15/24 06:30 11/15/24 06:40 11/15/24 07:22 Temperature 98 F Pulse Rate 81 76 Respiratory Rate 12 Blood Pressure 136/82 Pulse Oximetry 100 100 Oxygen Delivery Room Air Room Air 11/15/24 07:22 11/15/24 07:23 11/15/24 07:38 Temperature Pulse Rate 76 68 Respiratory Rate 16 16 Blood Pressure 120/74 Pulse Oximetry 100 100 99 Oxygen Delivery Room Air Room Air 11/15/24 08:04 11/15/24 08:10 11/15/24 08:11 Temperature Pulse Rate 66 67 65 Respiratory Rate 15 10 L 17 Blood Pressure 123/69 Pulse Oximetry 100 100 99 Oxygen Delivery 11/15/24 08:15 11/15/24 08:16 11/15/24 08:17 Temperature Pulse Rate 62 70 68 Respiratory Rate 16 17 16 Blood Pressure 122/81 Pulse Oximetry 100 100 100 Oxygen Delivery 11/15/24 08:45 11/15/24 09:00 11/15/24 09:01 Temperature Pulse Rate 73 85 76 Respiratory Rate 17 22 H 12 Blood Pressure 160/80 H Pulse Oximetry 94 100 Oxygen Delivery 11/15/24 09:15 11/15/24 09:16 11/15/24 09:30 Temperature Pulse Rate 80 97 77 Respiratory Rate 12 19 13 Blood Pressure 137/80 Pulse Oximetry 100 98 100 Oxygen Delivery 11/15/24 09:45 11/15/24 10:00 11/15/24 10:15 Temperature Pulse Rate 80 84 80 Respiratory Rate 15 13 11 L Blood Pressure Pulse Oximetry 99 94 100 Oxygen Delivery 11/15/24 10:19 11/15/24 10:45 11/15/24 10:52 Temperature 99.1 F Pulse Rate 73 71 Respiratory Rate 18 20 Blood Pressure 126/84 Pulse Oximetry 99 100 Oxygen Delivery Room Air H&P: Results Labs Labs: Short CBC 11/15/24 Range/Units 06:35 WBC 8.9 (4.5-10.0) K/mm3 Hgb 14.6 (14.0-18.0) g/dL Hct 40.6 L (42.0-52.0) % Plt Count 252 (150-375) k/mm3 BMP 11/15/24 06:35 Sodium 140 Potassium 3.5 Chloride 104 Carbon Dioxide 31 H BUN 21 H Creatinine 1.00 Glucose 90 Calcium 9.3 Cardiac Enzymes 11/15/24 11/15/24 Range/Units 06:35 09:28 Troponin I < 0.012 < 0.012 (0.000-0.034) ng/mL Liver Function 11/15/24 Range/Units 06:35 Total Bilirubin 0.9 (0.2-1.3) mg/dL AST 32 (17-59) U/L ALT 20 (6-50) U/L Alkaline Phosphatase 49 (38-126) U/L Albumin 4.4 (3.5-5.1) g/dL Assessment and Plan Assessment and plan (1) Left kidney mass: Code(s): N28.89 - Other specified disorders of kidney and ureter Status: Acute Assessment and Plan: 7.1 x 4.9 x 7.5 cm left para-aortic mass suspicious for malignancy such as sarcoma. CT-guided biopsy is recommended. Plan for IR biopsy while in hospital
[2024-11-15 13:20] LABS: Troponin I < 0.012 ng/mL (0.000-0.034)
[2024-11-15] MEDS: HYDROcodone/acetaminophen (*CRX) 5-325 MG TABLET 1 TAB PO ×2 (14:46→16:39)
[2024-11-15] MEDS: CYCLOBENZAPRINE HCL 5 MG TABLET PO (16:39)
--- NOTE | 2024-11-15 18:05 | P.SS_ITS ---
Same Day Admit/Disch: HPI History of Present Illness Chief complaint: Periaortic Mass Suspicious for Malignancy Narrative: Kai Greene is a 34 year old male with no pertinent medical history presents to the emergency room with acute chest pain. Patient states for about a week or so he had sciatic pain down his left leg, then testicular pain and chest pains he came into the emergency room. Patient's chest pain workup was negative for cardiac or pulmonary sources. CT of the chest abdomen and pelvis showed 7.1 x 4.9 x 7.5 cm left para-aortic mass suspicious for malignancy such as sarcoma. Patient had IR guided core needle biopsy of a left para-aortic mass today. Patient still complains of chest pain he is being given Xanax, [place], and Flexeril without relief pain. Will try Toradol. Due to patient being medically stable and wishing to go home tonight even if the pain is the same. Patient states he rather be home in his bed and with his family over the holiday while waiting for the results of his biopsy. Patient is asking for prescriptions Xanax and [place]. [facility] Past Medical History Medical History OCD (obsessive compulsive disorder) Migraine without aura, not intractable, with status migrainosus Family History Family History (Updated 11/15/24 @ 18:12 by Josefina Dalton APRN) Other Family history of headache disorder Social History Social History Smoking status: Never smoker Alcohol intake: never Substance use: never Do You Feel Safe in your Home?: Yes Lack of Transportation: No Lack of Food: Never True Current Housing: I Have Housing Concerned About Future Housing: No Difficulty Paying Gas/Electric Bills: No Difficulty Paying for Meds: No Currently Unemployed: No Education: Master's Degree or Higher Difficulty w/ Childcare or Family Care: No Spiritual care concerns: No Same Day Admit/Disch: Med Pre-admit Medications Home Medications ?Medication ?Instructions ?Recorded ?Confirmed ?Type finasteride 1 mg tablet (Propecia) 1 mg PO DAILY #90 tabs 02/04/24 11/15/24 Rx erenumab-aooe 140 mg/mL 140 mg subcut MONTHLY #1 mL 08/13/24 11/15/24 Rx subcutaneous auto-injector (Aimovig Autoinjector) gabapentin 300 mg capsule 300 mg PO BID #30 caps 11/11/24 11/15/24 Rx prednisone 10 mg tablet See Rx Instructions PO DAILY #42 11/11/24 11/15/24 Rx tabs alprazolam 0.25 mg tablet 0.25 mg PO TID PRN anxiety #20 tabs 11/15/24 Rx alprazolam 0.25 mg tablet (Xanax) 0.25 mg PO TID PRN anxiety 11/15/24 11/15/24 History hydrocodone 5 mg-acetaminophen 325 1 tablet PO Q6H PRN Pain Rated 4-6 11/15/24 Rx mg tablet #12 tabs sumatriptan succinate 100 mg tablet See Rx Instructions .Route 11/15/24 11/15/24 History .COMPLEX PRN migraine headache Review of Systems Review of Systems 12 systems were reviewed and are negative except for as per HPI. Exam Narrative: General: well appearing, appears stated age. HEENT: normocephalic, atraumatic. Mucous membranes moist. EOMI, PERRLA, bilateral sclera anicteric, no conjunctival injection. Neck supple without JVD, lymphadenopathy, or bruit. Respiratory: clear to ascultation bilaterally. No rales/rhonic/wheezes. Cardiovascular: Regular rate and rhythm, normal S1-S2 upon ascultation. No murmurs, rubs, or clicks. PMI is nondisplaced, capillary refill less than 3 second. Abdomen: Soft, flat, no pulsatile masses, nondistended and nontender. No rebound, no guarding. No CVA tenderness, no hepatosplenomegaly. Bowel sounds present to all four quadrants. No high pitch or tinkling sounds, resonant to percussion. Extremities: No cyanosis, clubbing, or edema present. Pulses are palpable 2/2. Active ROM to all four extremities. Neuro: Alert and orientated x 4. PERRLA. Cranial nerves 2-12 intact without focal deficit. Skin: Warm, dry, and intact, without rash, erythema, or lesion. Psych: pleasant, cooperative, normal speech, normal affect, no hallucinations, no dysarthia IR puncture site with dressing clean dry intact on his left lower back Psych: Mental Status: mental status grossly normal Affect: Anxious affect present DS: Data Data Completed and Pending Pending studies at discharge: Pending at discharge 11/15/24 11:53 Surgical [PTH] Routine Labs on day of discharge: Labs from last 24 hours 11/15/24 11/15/24 11/15/24 12:37 09:28 08:03 WBC RBC Hgb Hct MCV MCH MCHC RDW Plt Count MPV Immature Gran % (Auto) Neut % (Auto) Lymph % (Auto) Taney % (Auto) Eos % (Auto) Baso % (Auto) Lymph # (Auto) Taney # (Auto) Eos # (Auto) Baso # (Auto) Abs Immat Gran (auto) Absolute Neuts (auto) Absolute Nucleated RBC Nucleated RBC % PT INR APTT Sodium Potassium Chloride Carbon Dioxide Anion Gap BUN Creatinine Estim Creat Clear Calc Estimated GFR Glucose Calcium Total Bilirubin AST ALT Alkaline Phosphatase Troponin I < 0.012 < 0.012 Total Protein Albumin Lipase Influenza A (RT-PCR) Negative Influenza B (RT-PCR) Negative RSV (RT-PCR) Negative SARS-CoV-2 RNA (RT-PCR) Negative 11/15/24 06:35 WBC 8.9 RBC 4.93 Hgb 14.6 Hct 40.6 L MCV 82.4 MCH 29.6 MCHC 36.0 RDW 12.0 Plt Count 252 MPV 9.2 Immature Gran % (Auto) 0.2 Neut % (Auto) 48.4 Lymph % (Auto) 39.8 Taney % (Auto) 9.1 H Eos % (Auto) 2.0 Baso % (Auto) 0.5 Lymph # (Auto) 3.53 H Taney # (Auto) 0.8 H Eos # (Auto) 0.2 Baso # (Auto) 0.0 Abs Immat Gran (auto) 0.02 Absolute Neuts (auto) 4.3 Absolute Nucleated RBC 0.000 Nucleated RBC % 0.0 PT 14.3 INR 1.1 APTT 28.2 Sodium 140 Potassium 3.5 Chloride 104 Carbon Dioxide 31 H Anion Gap 5 BUN 21 H Creatinine 1.00 Estim Creat Clear Calc 96 Estimated GFR > 60 Glucose 90 Calcium 9.3 Total Bilirubin 0.9 AST 32 ALT 20 Alkaline Phosphatase 49 Troponin I < 0.012 Total Protein 8.0 Albumin 4.4 Lipase 87 Influenza A (RT-PCR) Influenza B (RT-PCR) RSV (RT-PCR) SARS-CoV-2 RNA (RT-PCR) Procedures/Treatments: IR guided biopsy DS: Summary Hospital Course Reason for hospitalization: Left para aortic mass Hospital Course: Kai Greene is a 34 year old male with no pertinent medical history presents to the emergency room with acute chest pain. Patient states for about a week or so he had sciatic pain down his left leg, then testicular pain and chest pains he came into the emergency room. Patient's chest pain workup was negative for cardiac or pulmonary sources. CT of the chest abdomen and pelvis showed 7.1 x 4.9 x 7.5 cm left para-aortic mass suspicious for malignancy such as sarcoma. Patient had IR guided core needle biopsy of a left para-aortic mass today. Patient still complains of chest pain he is being given Xanax, [place], and Flexeril without relief pain. Will try Toradol. Due to patient being medically stable and wishing to go home tonight even if the pain is the same. Patient states he rather be home in his bed and with his family over the holiday while waiting for the results of his biopsy. Patient is asking for prescriptions Xanax and [place]. Status at Discharge Cognitive/behavioral status at discharge: Anxious, stable for discharge Functional status at discharge: independent ambulation Time Spent with Patient Time attestation: Total time spent providing and/or coordinating discharge services: Time spent: Greater than 30 minutes DS: Admitting Diagnosis Discharge Date 11/14/2024 Admitting Diagnosis Chest pain Discharge Plan Discharge Attending physician on discharge: Ingrid Rowland V. Consulting providers: Jg Walsh V. Discharging Clinician: Josefina Dalton Anticipated Discharge Date/Time: 11/15/24 18:16 Patient Disposition: Home, Self-Care Activity: may shower Diet: regular Discharge Instructions: Discharge instructions: Take medications as prescribed New medications prescribed: [place] for pain You are activity as tolerated, please avoid working out for the next 3 days then no strenuous workup for week, Monitor blood pressures Avoid social areas, you wear a mask when in social settings Encouraged to continue with yearly vaccinations Return to the emergency department if he developed sudden shortness of breath, chest pain, nausea, vomiting, upset stomach or intractable diarrhea Return to the emergency department if you develop fever greater than 101.5 Follow-up with: Your primary care physician within 1-2 weeks for post hospitalization check up Thank you for [facility] for your healthcare needs Patient Language: Slovenian Stand Alone Forms: General Discharge Information Follow-up/Referrals: Jg Walsh MD [Physician] - Discharge Medications: New hydrocodone-acetaminophen 5-325 mg Tablet 1 tablet PO Q6H PRN (Reason: Pain Rated 4-6) Qty: 12 0RF alprazolam 0.25 mg Tablet 0.25 mg PO TID PRN (Reason: anxiety) Qty: 20 0RF ondansetron 4 mg tablet,disintegrating 4 mg PO Q6H PRN (Reason: nausea and vomiting) Qty: 10 0RF Continued gabapentin 300 mg capsule 300 mg PO BID Qty: 30 0RF sumatriptan succinate 100 mg tablet See Rx Instructions .ROUTE .COMPLEX PRN (Reason: migraine headache) Rx Instructions: TAKE 1 TABLET AT ONSET OF HEADACHE. IF NO RELIEF, MAY REPEAT 1 TABLET IN 2 HOURS. MAX 2 TABLETS IN 24 HOURS. PRN; alprazolam [Xanax] 0.25 mg tablet 0.25 mg PO TID PRN (Reason: anxiety) finasteride [Propecia] 1 mg tablet 1 mg PO DAILY Qty: 90 3RF Aimovig Autoinjector 140 mg/mL auto-injector 140 mg subcut MONTHLY Qty: 1 5RF Discontinued prednisone 10 mg tablet See Rx Instructions PO DAILY Qty: 42 0RF Rx Instructions: 6 po qdayx 2 days, 5 x 2days,4 x 2 d,3 x 2d,2 x 2d, 1 x 2 days PO daily; Date of admission: 11/15/24 09:24 Primary Care Provider: Kai Massey Admitting Provider: Noelle Li Attending physician on admission: Noelle Li Condition: Stable Quality VTE Prophylaxis VTE prophylaxis: mechanical ordered If No VTE Prophylaxis Answer both mechanical and pharmacologic: Reason no pharmacologic proph: medical contraindication Hospitalist MIPS Advance Care Plan I have confirmed that the patient's Advanced Care Plan is present, code status is documented, or surrogate decision maker is listed in patient medical record.: Yes Medication Reconciliation I have utilized all available resources to obtain, update and review the patients current medications (includes all prescriptions, OTC, herbals, cannabis, and nutritional supplements).: Yes Heart Failure (Exclusion) Patient has history of Heart Transplant or Left Ventricular Assistive Device?: No IF YES, STOP HERE Heart Failure (Qualifier) Patient has current or prior documentation of LVEF less than or equal to 40%, or mod/servere depressed LVSF?: No IF NO, STOP HERE
--- OUTSIDE RECORDS SUMMARY | 2024-11-22 06:27 | XMS_ITS | Encounter Summary ---
Author Organization [facility] [employer] [facility] Address [address] [place] [address] Phone Care Team Providers Care Edger Tailer Name Role Phone Kai Massey MD Primary Care Provider [phone] Reason for Visit * Reason Comments Dysphagia Encounter Details Date Type Department Care Team (Late st Contact Info) Description 02/07/2023 8:00 AM CDT Office Visit [facility] ([facility]) - [facility] E[facility] [address] [facility] [address] [place] [address] [place] [address] [place] [address] [facility] [address] [place] [address] Neck pain on right side (Primary Dx) Social History Tobacco Use Types Packs/Day Years Used Date Smoking Tobacco: Never Alcohol Use Standard Drinks/Week Comments Yes 0 (1 standard drink = 0.6 oz pur e alcohol) Sex and Gender Information Value Date Recorded Sex Assigned at Not on file 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 Please see my documentation below for details. Otolaryngology - Head & Neck Surgery Clinic New Patient Subjective Kai Greene is a 33 y.o. male who presents with pain when swallowing on right side of neck. Over the past few 3-4 weeks it hurts all the time, specifically when swallowing. PCP gave steroids which maybe helped a little. Not waking up at night, but when waking up in the morning is present. Is there all day every day whenever swallowing, no pain with eating, seems to be better when swallowingfood as opposed to dry swallowing. Feels that he is swallowing more due to noting the pain. Not worse with anything in particular, not worse with talking, no voice changes, no cough. It does not feellike a sore throat, it is more in neck, one specific spot . No smoking, drinks once a month. 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 2 years ago had globus sensation and felt need to swallow all the time. Got better slowly over time, probably late 2020. Not a significant pain like this is. Allergy tests and CT scan both were negative. Stopped reflux meds and flonase and nasal rinses as never helped. Past Medical History: Diagnosis Date Migraines Patient Active Problem List Diagnosis Allergic rhinitis No past surgical history on file. Social History Tobacco Use Smoking status: Never Smokeless tobacco: Not on file Substance and Sexual Activity Drug use: Never Sexual activity: Not on file Alcohol Use: Not on file No family history on file. No Known Allergies Current Outpatient Medications Medication Instructions Aimovig Autoinjector 140 mg/mL auto-injector No dose, route, or frequency recorded. finasteride (PROPECIA) 1 mg, oral, Daily predniSONE (DELTASONE) 10 mg tablet TAKE 6 TABLETS BY MOUTH ONCE DAILY FOR 2 DAYS THEN 5 ONCE DAILYFOR 2 DAYS THEN 4 ONCE DAILY FOR 2 DAYS THEN 3 ONCE DAILY FOR 2 DAYS THEN 1 ONCE DAILY FOR 2 DAYS (1-0-5-5-4-1-3-3-2-2-1-1) SUMAtriptan (IMITREX) 100 mg, oral, Once as needed Review of Systems A complete past medical history, family history, social history, and 10 system review of systems was completed by the patient on the Patient History Form and reviewed with the patient during the visit on 02/07/2023. All review of systems not otherwise marked on the form are negative. The Patient History Form can be found in the electronic medical record as a scanned document. Records I personally reviewed the patient's Images of CT Face from 08/2021 demonstrating minimal sinusitis. I personally reviewed the patient's existing records. The office notes demonstrating globus sensation care by Dr. Butler in 08/2021, noting large number of various therapies including nasal steroids, nasal saline rinses, nasal antihistamines, p.o. steroids, p.o. antibiotics, multiple PPIs. He has also made drastic lifestyle changes such is stopping drinking all caffeinated or alcoholic beverages, not eating more than 3 hours before bedtime, and elevating the head of his bed. All of this, except for nasal saline irrigations, has produce limited relief of symptoms. , FOE normal, plan: The etiology of this patient's symptoms is not completely clear. He does have some evidence for allergic rhinitis, specifically the fact that the symptoms appeared after a hiking trip at the start of the fall allergy season and have not fully resolved. We discussed that he has not done a full 3 to four- week course of nasal steroid which is sometimes helpful. Theonly thing that seems to heko him is saline irrigations. We have encouraged him to continue this, try Flonase for at least 3 weeks, and use a 2nd gen antihistimine of his choosing. He has also been treated for GERD appropriately with relatively limited relief. I think that all ofthis patient's management has been appropriate to date. We also discussed that there may be a component of him being hypersensitive in his throat. He was able to view his own flexible laryngoscopy today and be reassured that his anatomy is normal. He understands part of the process from this point is recognizing that we've identified no red flags and trying not to focus his attention on the sensation in his throat. Objective Physical Exam: Vitals: 02/07/23 0804 Weight: 89.1 kg (196 lb 6.4 oz) Height: 180.3 cm (5' 11 ) General: No apparent distress, well-nourished Head and Face: Normocephalic, atraumatic. Skin: No cutaneous lesions of the face or neck. Eyes: EOMI, PERRL, sclera white, conjunctiva clear Ears: Normal set, no drainage Nose: Dorsum is midline. No drainage or discharge. No bleeding. Oral Cavity/Oropharynx: No visible mucosal lesions. Floor of mouth is pink and soft. No bleeding. Tongue is midline. Pharynx is clear. Tonsils 1+, soft to palpation Neck: Soft, flat, no lymphadenopathy, salivary glands are soft and non-tender to palpation. Indicated site of tenderness is over right carotid, no tenderness to palpation, no masses Cardiovascular: Extremities are warm and well perfused. No cyanosis. Pulmonary: Normal quiet breathing on room air. No respiratory distress, stridor, or wheeze. Neurologic: Alert and oriented, face symmetric, facial sensation intact bilaterally Flexible laryngoscopy was indicated to evaluate the true vocal cord function and upper airway. The nasal cavities were topically anesthetized with 2ml of 1% topical lidocaine and and decongested withoxymetazoline. A flexible scope was introduced into the right nasal cavity. No mucopurulence, polyps, ulcers, or lesions were seen. The nasopharynx showed symmetric adenoid pad without any lesions. Posterior and lateral pharyngeal wall were normal in appearance without any lesions. Base of tongue, epiglottis, and vallecula were normal in appearance. Bilateral pyriform recesses were normal in appearance. The true vocal folds had normal mobility bilaterally without any overlying lesions. The scope was removed from the patient's nose and he tolerated the procedure well. Assessment /Plan Assessment and Plan: 33 y.o. year old male with tenderness over right neck, with no findings on scope. Per symptoms, tenderness appears to be more in neck than in throat, and is only when swallowing not on food or liquid. Possibly related to irritation due to hard swallowing, versus mild carotidynia. No findings on exam. Offered CT neck to check on site of pain, but he elected to observe for now and let us know if he is not improving or worsening and would like to do the CT scan. Follow up PRN The note in its entirety has been confirmed by me, the attending physician. Parts of the note were initially recorded by my staff. Briana Chávez M.D. Solid Waste Management Engineer Department of Otolaryngology-Head and Neck Surgery [facility] phone: 02/07/2023 documented in this encounter Plan of Treatment Not on file documented as of this encounter Visit Diagnoses Diagnosis Neck pain on right side- Primary documented in this encounter Historical Medications * This list may reflect changes made after this encounter. predniSONE (DELTASONE) 10 mg tablet TAKE 6 TABLETS BY MOUTH ONCE DAILY FOR 2 DAYS THEN 5 ONCE DAILY FOR 2 DAYS THEN 4 ONCE DAILY FOR 2 DAYS THEN 3 ONCE DAILY FOR 2 DAYS THEN 1 ONCE DAILY FOR 2 DAYS (9-8-9-5-4-4- 3-3-2-2-1-1) 01/30/2023 finasteride (PROPECIA) 1 mg tablet Take 1 mg by mouth daily 01/30/2023 Aimovig Autoinjector 140 mg/mL auto-injector 02/06/2023 added in this encounter Care Teams Edger Tailer Relationship Specialty Start Date End Date Kai Massey MD PCP - General Family Medicine 06/25/19 documented as of this encounter
--- OUTSIDE RECORDS SUMMARY | 2024-11-22 06:27 | XMS_ITS | Encounter Summary ---
Author Organization [facility] Address [address] [place] [address] Care Team Providers Care Front End Software Engineer Name Role Phone Kai Massey MD Primary Care Provider [phone]- [phone] Encounter Details Date Type Department Care Team (Late st Contact Info) Description 08/08/2021 10:30 AM CDT Office Visit [facility] OT[facility]Y [address] [place] [address] Sabina Duarte, HANDSTITCHING MACHINE ARMHOLE FELLER-MIX CRUSHER OPERATOR [address] [facility] [address] [place] [address] Migraine without aura and without status migrainosus, not intractable (Primary Dx); Globus sensation Social History Tobacco Use Types Packs/Day Years Used Date Smoking Tobacco: Never Smokeless Tobacco: Never Alcohol Use Standard Drinks/Week Comments Yes 0 (1 standard drink = 0.6 oz pur e alcohol) 1 weekly Sex and Gender Information Value Date Recorded Sex Assigned at Not on file Gender Identity Not on file Sexual Orientation Not on file documented as of this encounter Last Filed Vital Signs Vital Sign Reading Time Taken Comments Blood Pressure 129/80 08/08/2021 10:36 AM CDT Pulse 78 08/08/2021 10:36 AM CDT Temperature - - Respiratory Rate - - Oxygen Saturation - - Inhaled Oxygen Concentration - - Weight 82.3 kg (181 lb 8 oz) 08/08/2021 10:36 AM CDT Height 180.3 cm (5' 11 ) 08/08/2021 10:36 AM CDT Body Mass Index 25.31 08/08/2021 10:36 AM CDT documented in this encounter Patient Instructions * Patient Instructions* Renetta Bonner - 08/08/2021 10:38 AM CDT Thank you for visiting [facility] Otolaryngology - Head & Neck Surgery. We appreciate your confidence in allowing us to participate in your health care. You may receive a survey about your visit with us today. Making our patients happy isn???t just happy talk; it???s ourmission. Please tell us if we made the right impression on you- and how we can serve you better. Please SAVE the information below, it will assist you when it???s time for you to contact us. ??? To MAKE - CHANGE - CANCEL an office appointment If you become ill, need to be seen before your next scheduled appointment, or need to cancel or reschedule an appointment, please call our office at [phone] Friday through Friday from 8:30 am to4:30 pm. You can also request a routine appointment through your Work[employer] account. ??? Prescription Refills Contact your pharmacy to request all refills. The pharmacy will need to fax the request to us at . Please allow a minimum of 48-72 hours for your prescription to be completed. Your pharmacy will notify you when your prescription is ready to be picked up. ??? Medical Emergency / After Hours Contact Information If you have a medical emergency, please call 911 or go to the nearest emergency room. For urgent medical calls which cannot wait until the office opens, please call the medical exchangeat and ask the road roller operator to page the ENT physician investigation clerk. *Caller ID blocking service will need to be turned off for your call to be returned. We also specialize in Hearing Aids, Allergy testing, swallowing disorders, voice problems, cancer diagnosis, and so much more. Visit our website at [email or web address] for information about our practice and an interactive health encyclopedia. Thank you for visiting [facility] Otolaryngology - Head & Neck Surgery. We appreciate your confidence in allowing us to participate in your health care. You may receive a survey about your visit with us today. Making our patients happy isn???t just happy talk; it???s ourmission. Please tell us if we made the right impression on you- and how we can serve you better. Please SAVE the information below, it will assist you when it???s time for you to contact us. ??? To MAKE - CHANGE - CANCEL an office appointment If you become ill, need to be seen before your next scheduled appointment, or need to cancel or reschedule an appointment, please call our office at [phone] Friday through Friday from 8:00 am to4:30 pm. You can also request a routine appointment through your Work[employer] account. ??? Prescription Refills Contact your pharmacy to request all refills. The pharmacy will need to fax the request to us at . Please allow a minimum of 48-72 hours for your prescription to be completed. ??? Medical Emergency / After Hours Contact Information If you have a medical emergency, please call 911 or go to the nearest emergency room. For urgent medical calls, which cannot wait until the office opens, please call the medical exchange at and ask the road roller operator to page the ENT physician investigation clerk. *Caller ID blocking service will need to be turned off for your call to be returned. We also specialize in Hearing Aids, Allergy testing, swallowing disorders, voice problems, cancer diagnosis, and so much more. Visit our website at [email or web address] for information about our practice and an interactive health encyclopedia. Thank you for visiting [facility] Otolaryngology - Head & Neck Surgery. We appreciate your confidence in allowing us to participate in your health care. You may receive a survey about your visit with us today. Making our patients happy isn???t just happy talk; it???s ourmission. Please tell us if we made the right impression on you- and how we can serve you better. Please SAVE the information below, it will assist you when it???s time for you to contact us. ??? To MAKE - CHANGE - CANCEL an office appointment If you become ill, need to be seen before your next scheduled appointment, or need to cancel or reschedule an appointment, please call our office at [phone] Friday through Friday from 8:00 am to4:30 pm. You can also request a routine appointment through your Work[employer] account. ??? Prescription Refills Contact your pharmacy to request all refills. The pharmacy will need to fax the request to us at . Please allow a minimum of 48-72 hours for your prescription to be completed. ??? Medical Emergency / After Hours Contact Information If you have a medical emergency, please call 911 or go to the nearest emergency room. For urgent medical calls, which cannot wait until the office opens, please call the medical exchange at and ask the road roller operator to page the ENT physician investigation clerk. *Caller ID blocking service will need to be turned off for your call to be returned. We also specialize in Hearing Aids, Allergy testing, swallowing disorders, voice problems, cancer diagnosis, and so much more. Visit our website at [email or web address] for information about our practice and an interactive health encyclopedia. documented in this encounter Progress Notes * Sabina Duarte, HANDSTITCHING MACHINE ARMHOLE FELLER-MIX CRUSHER OPERATOR - 08/08/2021 11:27 AM CDT History of Present Illness: Kai Hayes is a 31 year old male who presents for evaluation of headaches. He has a history of migraines since he was in his 20s. Has been off and on preventative therapy. He was getting about 3 migraines per month and would take 100 mg Imitrex with relief. States her headaches were under good control. About 6 weeks ago he began to notice a discomfort in his throat. He felt like mucus was stuck in his throat and he would have to swallow. Seen by PCP and Dr. Tovar. Treated with Omeprazole, Pepcid with no improvement. He then started lifestyle modifications for LPR and stopped all caffeine. He was drinking an excessive amount--1/2 pot and an energy drink before he worked out. Stopped this cold turkey. Then had 10 days in a row of terrible headaches and he was taking an Imitrex daily. Became concerned for reboundheadaches, so he stopped taking Imitrex 7 days ago and he has only had 2 headaches in the past 7 days. Still having the throat issues. Has not been treated with an antibiotic. Past Medical History: Past Medical History: Diagnosis Date ??? Acid reflux ??? Migraines has no past surgical history on file. Current Outpatient Medications Medication Sig Dispense Refill ??? azithromycin (ZITHROMAX) 250 MG tablet Take 2 tabs today, then 1 tab daily for next 4 days 6 tablet 0 ??? predniSONE (DELTASONE) 10 MG tablet Take 40 mg x 2 days, 30 mg x 2 days, 20 mg x 2 days, 10 mg x 2 days 20 tablet 0 ??? SUMAtriptan (IMITREX) 100 MG tablet Take 1 tablet by mouth once daily No current facility-administered medications for this visit. Social History Tobacco Use ??? Smoking status: Never Smoker ??? Smokeless tobacco: Never Used Vaping Use ??? Vaping Use: Never used Substance Use Topics ??? Alcohol use: Yes Comment: 1 weekly ??? Drug use: Never Allergies Patient has no known allergies. Review of Systems: REVIEW OF SYSTEMS: Headaches, throat sensation Physical Exam: General: WDWN, thin Head and Face: facial movement was normal and symmetrical, nontender External Ears: normal pinnae shape and position Ext. Aud. Canal: Right:patent Left: patent Tympanic Mem: Right: normal appearance and landmarks Left: normal appearance and landmarks Nose: Nares normal. Septum midline. Mucosa normal. No drainage or sinus tenderness. Oral Cavity: lips, dentition and gingiva within normal for age Tonsils: normal size, normal appearance Post. Pharynx: normal mucosa Neck: no asymmetry, masses, or scars Thyroid: Normal Respiratory: unlabored breathing Neuro: alert, oriented x3, affect appropriate, no focal neurological deficits, moves all extremities well, no involuntary movements Skin: Skin color, texture, turgor normal. No rashes or lesions Assessment and Plan: Migraine Headaches: Recent exacerbation, likely from caffeine withdrawal and then a rebound headache from Imitrex. Will treat with 8 day steroid taper. Discussed hydration and consistent caffeine use, and limiting the amount of caffeine Globus Sensation: No help with Pepcid ofr a PPI. Has not been treated with a PPI. Will try a Z-pack * Renetta Bonner - 08/08/2021 10:38 AM CDT Review of Systems Kai reports the following:Head: headaches, since the throat problem, have been having headaches documented in this encounter Plan of Treatment Not on file documented as of this encounter Visit Diagnoses Diagnosis Migraine without aura and without status migrainosus, not intractable- Primary Migraine without aura, without mention of intractable migraine without mention of status migrainosus Globus sensation Gastrointestinal malfunction arising from mental factors documented in this encounter Care Teams Front End Software Engineer Relationship Specialty Start Date End Date Kai Massey MD [address] [place] [phone] PCP - General Family Medicine 08/08/21 documented as of this encounter
--- OUTSIDE RECORDS SUMMARY | 2024-11-22 06:27 | XMS_ITS | Clinical Summary ---
Author Organization [facility] Address [address] [place] [address] Care Team Providers Care Product Safety Specialist Name Role Phone Kai Massey MD Primary Care Provider [phone]- [phone] Source Comments [facility],non-owned Affiliates and Associated Physician Practices is amultiple site organization consisting of ambulatory clinics and hospital sitesin [place], [place], [place] and [place]. This disclosure is being madepursuant to the Care Everywhere program and may not contain all information available regarding this patient. Last updated 18.[facility] [employer] Allergies No known active allergies Medications * Be aware that medications may not be up to date on this document. Alwaysverify current medications with the patient. Medication Sig Dispensed Refills Start Date End Date Status SUMAtriptan (IMITREX) 100 MG tablet Take 1 (one) tablet by mouth once daily 05/24/2021 Active Aimovig 140 MG/ML auto injector pen Inject 1 mL subcutaneously every 30 days 02/06/2023 Active finasteride (Propecia) 1 MG tablet Take 1 (one) tablet by mouth once daily 01/30/2023 Active amitriptyline (Elavil) 25 MG tablet Take 1 (one) tablet by mouth every evening 30 tablet 2 05/07/2023 Active Active Problems No known active problems Encounters Date Type Department Care Team Description 11/18/2024 Lab Requisition [facility] - Pathology Lab [address] [place] [address] Sudhakar Pagan MD Illness, unspecified from Last 3 Months Immunizations Name Administration Dates Next Due INFLUENZA VACCINE, CELL CULT URE, QUADR. (FLUCELVAX QUADRIVALENT; 6MO+) (CCIIV4) 09/26/2022,09/25/2020 Social History Tobacco Use Types Packs/Day Years Used Date Smoking Tobacco: Never Smokeless Tobacco: Never Alcohol Use Standard Drinks/Week Comments Yes 0 (1 standard drink = 0.6 oz pur e alcohol) 1 weekly Sex and Gender Information Value Date Recorded Sex Assigned at Not on file Gender Identity Not on file Sexual Orientation Not on file Last Filed Vital Signs Vital Sign Reading Time Taken Comments Blood Pressure 127/78 05/07/2023 2:06 PM CDT Pulse 73 05/07/2023 2:06 PM CDT Temperature - - Respiratory Rate - - Oxygen Saturation - - Inhaled Oxygen Concentration - - Weight 84.4 kg (186 lb) 05/07/2023 2:06 PM CDT Height 180.3 cm (5' 11 ) 05/07/2023 2:06 PM CDT Body Mass Index 25.94 05/07/2023 2:06 PM CDT Plan of Treatment Health Maintenance Due Date Last Done Comments HIV SCREENING 2003 HEPATITIS C SCREENING 01/07/2006 DTAP/TDAP/TD VACCINES (1 - Tdap) 2007 HEPATITIS B VACCINE (1 of 3 - 19+ 3-dose series) 2007 DEPRESSION SCREENING 11/24/2023 COVID-19 VACCINE (2023- season) 2024 09/26/2022, 10/24/2021, 03/13/2021, Additional history exists INFLUENZA VACCINE (#1) 2024 09/26/2022, 2019 ZOSTER VACCINE (1 of 2) 2038 HIB VACCINE Aged Out No longer eligi ble based on patient's age to complete this topic HPV VACCINE Aged Out No longer eligi ble based on patient's age to complete this topic MENINGOCOCCAL VACCINE Aged Out No mary allie eligible based on patient's age to complete this topic PNEUMOCOCCAL VACCINE Aged Out No long er eligible based on patient's age to complete this topic Care Teams Product Safety Specialist Relationship Specialty Start Date End Date Kai Massey MD [address] [place] [address] PCP - General Family Medicine 08/08/21
--- OUTSIDE RECORDS SUMMARY | 2024-11-22 06:27 | XMS_ITS | Encounter Summary ---
Author Organization [facility] Address [address] [place] [id number] Care Team Providers Care Biosolids Management Technician Name Role Phone Unavailable Primary Care Provider Unavailabl e Encounter Details Date Type Department Care Team (Late st Contact Info) Description 09/18/2020 Lab Requisition [facility] Health Community Testing [facility] [address] [place] [address] [place] [id number] [place] [id number] Social History Tobacco Use Types Packs/Day Years Used Date Smoking Tobacco: Never Assessed Sex and Gender Information Value Date Recorded Sex Assigned at Not on file Legal Sex Male 2:54 PM CDT Gender Identity Not on file Sexual Orientation Not on file documented as of this encounter Plan of Treatment Not on file documented as of this encounter Procedures Procedure Name Priority Date/Time Associated Diagnosis Comments SARS-COV-2 PCR [facility] ONLY Routine 09/18/2020 3:01 PM CDT documented in this encounter Visit Diagnoses Not on filedocumented in this encounter
--- OUTSIDE RECORDS SUMMARY | 2024-11-22 06:27 | XMS_ITS | Encounter Summary ---
Author Organization [facility] Address [address] [place] [address] Care Team Providers Care Finished Cloth Examiner Name Role Phone Unavailable Primary Care Provider Unavailabl e Encounter Details Date Type Department Care Team (Late st Contact Info) Description 09/18/2020 3:00 PM CDT Rapid Evaluation [facility] Community [facility] [address] [place] [address] Social History Tobacco Use Types Packs/Day Years Used Date Smoking Tobacco: Never Assessed Sex and Gender Information Value Date Recorded Sex Assigned at Not on file Legal Sex Male 2:54 PM CDT Gender Identity Not on file Sexual Orientation Not on file documented as of this encounter Plan of Treatment Not on file documented as of this encounter Visit Diagnoses Not on filedocumented in this encounter
--- OUTSIDE RECORDS SUMMARY | 2024-11-22 06:27 | XMS_ITS | Clinical Summary ---
Author Organization [facility] Address [address] [place] [address] Care Team Providers Care Pearler Name Role Phone Kai Massey MD Primary Care Provider [phone] [phone] Allergies No known active allergies Medications SUMAtriptan (IMITREX) 100 mg tabletIndications :Migraine Take 100 mg by mouth once as needed for migraine Active Aimovig Autoinjector 140 mg/mL auto-injector 3 Active finasteride (PROPECIA) 1 mg tablet Take 1 mg by mouth daily 3 Active predniSONE (DELTASONE) 10 mg tablet TAKE 6 TABLETS BY MOUTH ONCE DAILY FOR 2 DAYS THEN 5 ONCE DAILY FOR 2 DAYS THEN 4 ONCE DAILY FOR 2 DAYS THEN 3 ONCE DAILY FOR 2 DAYS THEN 1 ONCE DAILY FOR 2 DAYS (5-6-2-5-4-4- 3-3-2-2-1-1) 3 Active Active Problems Problem Noted Date Diagnosed Date Allergic rhinitis 09/03/2021 Medical History Medical History Date Comments Migraines Social History Tobacco Use Types Packs/Day Years Used Date Smoking Tobacco: Never Alcohol Use Standard Drinks/Week Comments Yes 0 (1 standard drink = 0.6 oz pur e alcohol) Personal Safety Answer Date Recorded Getting School Help Needed Not on file 01/17 Sex and Gender Information Value Date Recorded Sex Assigned at Not on file Legal Sex Male 11:07 PM PATIENT FLOW COORDINATOR Gender Identity Not on file Sexual Orientation Not on file Obstetrics History Last Filed Vital Signs Vital Sign Reading Time Taken Comments Blood Pressure 145/92 09/03/2021 10:59 AM CDT Pulse 98 09/03/2021 10:59 AM CDT Temperature - - Respiratory Rate - - Oxygen Saturation - - Inhaled Oxygen Concentration - - Weight 89.1 kg (196 lb 6.4 oz) 02/07/2023 8:04 A M CDT Height 180.3 cm (5' 11 ) 02/07/2023 8:04 AM CDT Body Mass Index 27.39 02/07/2023 8:04 AM CDT Plan of Treatment Health Maintenance Due Date Last Done Comments Depression Screening 1988 Hepatitis C Screening 1988 DTaP/Tdap/Td Vaccine (1 - Tdap) 1999 Varicella Vaccines (1 of 2 - 13+ 2-dose series) 2001 Hepatitis B Screening 2006 Regular Well Visit/Exam 18-64 2006 Covid-19 Vaccine (3 - 2023-2 5 season) 2024 03/13/2021, 02/19/2021 Influenza Vaccine (#1) 2024 09/25/2020 HPV Vaccines Aged Out No longer eligi ble based on patient's age to complete this topic Pneumococcal vaccine <65 Aged Out No longer eligible based on patient's age to complete this topic Insurance [facility] [employer] Care Teams Pearler Relationship Specialty Start Date End Date Kai Massey MD PCP - General Family Medicine 06/25/19
--- OUTSIDE RECORDS SUMMARY | 2024-11-22 06:27 | XMS_ITS | Encounter Summary ---
Author Organization [facility] Address [address] [place] [address] Care Team Providers Care Oyster Buyer Name Role Phone Kai Massey MD Primary Care Provider [phone]- [phone] Reason for Visit * Reason Comments Immunotherapy Allergy Testing Encounter Details Date Type Department Care Team (Late st Contact Info) Description 10/04/2021 10:00 AM SHIP ENGINEER Office Visit [facility] [address] [place] [phone] Douglas Tovar MD [address] [place] [address] [place] [address] Seasonal allergic rhinitis due to pollen (Primary Dx); Allergic rhinitis due to insect; Allergic rhinitis due to cats; Allergic rhinitis due to mold Social History Tobacco Use Types Packs/Day Years Used Date Smoking Tobacco: Never Smokeless Tobacco: Never Alcohol Use Standard Drinks/Week Comments Yes 0 (1 standard drink = 0.6 oz pur e alcohol) 1 weekly Sex and Gender Information Value Date Recorded Sex Assigned at Not on file Gender Identity Not on file Sexual Orientation Not on file documented as of this encounter Patient Instructions * Patient Instructions* Margi Pratt - 10/04/2021 11:51 AM SHIP ENGINEER See results and suggestions provided at testing visit. Your arms may continue to itch and show areas of redness and swelling for the next several days (the molds we tested may continue to react). This will NOT change the results we saw in the office today, or the recommendation from the doctor.If it is uncomfortable or if the itching is bothersome, you can try applying ice, and/or Benedryl cream (obtain [id number]), and/or take one extra dose of your antihistamine pill. If you have questions, please contact us. Continue current medications, including nasal irrigations (at least daily, but may do as often as you like), Use nasal steroid spray every day -- Flonase, fluticasone, Nasacort, triamcinolone, etc Take daily antihistamine, Dr. Tovar has no preference regarding the best antihistamine (genericof Danuta, Zyrtec, Claritin OR Xyzal). Try each for a week, and see which works best for you. Also continue nasal antihistamine spray up to twice daily as needed -- azelastine. If you decide that you want to start immunotherapy (SCIT - weekly allergy shots, or SLIT - daily allergy drops), please let Margi Ambrosio know @ [phone]. To schedule your first Allergy shot at either office, talk with Lashay Holland or Margi Lindsay at [phone]. You can only get your shots at one location (because that is where your vials will be). Shots are done weekly, by a Registered Nurse, ONLY when a doctor is in the office. You MUST bring an epi-pen with you to every allergy shot visit, and keep it with you the day of theshot. You may use antihistamines and any other medications while you are on immunotherapy, it will NOT change the benefit of immunotherapy. ANY questions, you may also call Margi or Lashay Holland at [phone], or message Dr. Tovar through [employer]. Follow up with Dr. Tovar in 3-5 weeks ENGINEER documented in this encounter Progress Notes * Margi Pratt - 10/04/2021 10:20 AM CST 1000 Pt completed questionnaire. Consent obtained. Allergy testing via modified quantitative technique was performed. Most bothered by allergy symptoms of post nasal drip While off antihistamines for testing, allergy symptoms same CT scan - none Sinus surgery(ies) - none Sleep study - none Ordered By: Guy Tested By: Margi Supervising Physician: Brunworth Battery A left forearm percutaneously, level 4: right upper arm intradermally: Site Antigen Wheal Dilution # 6 Dilution # 5 Dilution # 4 Dilution # 3 Dilution # 2 Dilution # 1 ITVol. (ml) Initial IT dilution 1 Histamine 7 mm 2 Saline 5 mm 3 Dudley Pollen * 5 mm 5 0.2 -- 4 Birch Mix * 5 mm 5 0.2 -- 5 Elm Mix 5 mm 0.2 -- 6 Eastern Turin 5 mm 0.2 -- 7 Red Wilson 5 mm 0.2 -- 8 Glycerine 5 mm Battery B left forearm, percutaneously, level 4: right upper arm intradermally: Site Antigen Wheal Dilution # 6 Dilution # 5 Dilution # 4 Dilution # 3 Dilution # 2 Dilution # 1 ITVol. (ml) Initial IT dilution 1 Maple Mix 5 mm 0.2 -- 2 #4 Ragweed Mix * 5 mm 5 0.2 -- 3 Pigweed Mix * 5 mm 5 0.2 -- 4 Lambs Quarter 5 mm 5 0.2 -- 5 Bartholomew Elder 5 mm 5 0.2 -- 6 Jung Mix 5 mm ep7 0.2 1 7 Kochia 5 mm 5 0.2 -- 8 Cape Verdean Thistle 7 mm ep 0.2 2 Battery C left forearm, percutaneously, level 4: right upper arm intradermally: Site Antigen Wheal Dilution # 6 Dilution # 5 Dilution # 4 Dilution # 3 Dilution # 2 Dilution # 1 ITVol. (ml) Initial IT dilution 1 Dock [place] Mix 5 mm 5 0.2 -- 2 Cocklebur 5 mm 5 0.2 -- 3 Std Mite D Farinae * 5 mm 5 0.1 -- 4 Std Mite D Ptero. * 5 mm ep 9 0.1 2 5 Cockroach * 7 mm ep 0.1 2 6 Std Cat Hair * 5 mm ep7 0.1 1 7 Dog Hair * 5 mm 5 0.1 -- 8 Feather Hair * 5 mm 5 0.1 -- Battery D right upper arm intradermally: Site Antigen Wheal Dilution # 6 Dilution # 5 Dilution # 4 Dilution # 3 Dilution # 2 Dilution # 1 ITVol. (ml) Initial IT dilution 1 Alternaria * mm 5 5 0.1 -- 2 Hormodendrum * mm 5 7 0.1 -- 3 Pullularia * mm 5 7 0.1 -- 4 Apergillus Mix * mm ep7 0.1 2 5 Noelle Albicans mm 5 0.1 --- 6 Helminthosporium mm 5 0.1 -- 7 Pencillium mm 5 0.1 -- 8 Fusarium mm ep7 0.1 1 Battery E right upper arm intradermally: Site Antigen Wheal Dilution # 6 Dilution # 5 Dilution # 4 Dilution # 3 Dilution # 2 Dilution # 1 ITVol. (ml) Initial IT dilution 1 Mucor mm 5 0.1 -- 2 CORN Smut Mix mm 5 0.1 -- 3 Bermuda Grass mm 5 0.2 -- 4 Raleigh Grass mm 5 0.2 -- 5 Horse Hair mm 0.2 Not Tested Symptom Review Eye Symptoms: none Ear Symptoms: none Nasal Symptoms: watery discharge Mouth and Throat Symptoms: difficulty swallowing, post nasal drip Headaches: frequent, pounding, migraine Chest Symptoms: none Stomach/Intestinal Symptoms: none Skin Symptoms: none Insect Sting Reaction: swelling Stung by: bee Triggers: not sure When are symptoms worse? Summer and fall Are you symptoms better away from home? maybe Current nasal regimen: Nasal irrigations: in the past, makes nose run uncontrollably Currently using oral antihistamine claritin ; has tried Claritin (loratidine), Zyrtec (ceterizine),Currently using nasal steroid spray flonase ; has tried fluticasone Currently using nasal antihistamine spray astelin ; has tried Astelin (azelastine) Also has used none Testing lasting 2 hours. Pt tolerated testing well with localized itching only. Dr. Denise talks with pt about results, suggests: Finish oral abx for sinusitis, follow up after Also discussed / suggested environmental control Follow up 4 weeks . Summary of testing process: For Battery A, B and C, listed extracts are applied at left forearm percutaneously scratch test (Multitest from [facility]); wheal is read at 20 minutes. 5mm or less is negative, and may be rechecked intradermally. Then, 0.02ml of marked extracts are placed intradermally at right upper arm with dilution noted on table; wheal is read at 15 minutes. ep notes endpoint. For Battery D and E, 0.02ml of listed extracts are placed intradermally at right upper arm with dilution noted on table; wheal is read at 15 minutes. 5mm or less is negative, and may be rechecked with higher concentration. ep notes endpoint. Testing extracts are from [facility]. Patient seen and examined with the allergy team. Please see note for further details. I confirm history, exam, assessment and plan. In addition I note: Interval history: continued symptoms Exam: General exam shows the patient to be in no acute distress. Respiratory exam shows patient to have normal respirations. No evidence of wheezing or shortness of breath. Assessment/Plan: Allergic rhinitis. Allergy testing today with mild results. Discussed allergy shots. Discussed the risks, benefits, alternatives and indications for the shots in great detail. The patient confirmed complete understanding and wishes to defer for now and followup with myself. Douglas Tovar MD 10/08/2021 10:20 AM ENGINEER documented in this encounter Plan of Treatment Not on file documented as of this encounter Visit Diagnoses Diagnosis Seasonal allergic rhinitis due to pollen- Primary Allergic rhinitis due to insect Allergic rhinitis due to cats Allergic rhinitis due to animal (cat) (dog) hair and dander Allergic rhinitis due to mold documented in this encounter Care Teams Oyster Buyer Relationship Specialty Start Date End Date Kai Massey MD [address] [place] [phone] PCP - General Family Medicine 08/08/21 documented as of this encounter
--- OUTSIDE RECORDS SUMMARY | 2024-11-22 06:27 | XMS_ITS | Encounter Summary ---
Author Organization [facility] Address [address] [place], [place] [address] [address] Care Team Providers Care Fruit Bar Maker Name Role Phone Kai Massey MD Primary Care Provider [phone]- [phone] Reason for Visit * Reason Comments Throat Problem Encounter Details Date Type Department Care Team (Late st Contact Info) Description 08/22/2021 11:00 AM CDT Office Visit [facility] [address] [facility], [address] [place] [address] Douglas Tovar MD [facility] [place] [address] Migraine without aura and without status migrainosus, not intractable (Primary Dx); Throat discomfort; Globus sensation; Frequent headaches Social History Tobacco Use Types Packs/Day Years [...] Sign Reading Time Taken Comments Blood Pressure 136/81 08/22/2021 11:10 AM CDT Pulse 85 08/22/2021 11:10 AM CDT Temperature - - Respiratory Rate - - Oxygen Saturation - - Inhaled Oxygen Concentration - - Weight 79.4 kg (175 lb) 08/22/2021 11:10 AM CDT Height 180.3 cm (5' 11 ) 08/22/2021 11:10 AM CDT Body Mass Index 24.41 08/22/2021 11:10 AM CDT documented in this encounter Patient Instructions * Patient Instructions* Smita Deleon - 08/22/2021 11:12 AM CDT Thank you for visiting [facility] Otolaryngology - Head & Neck Surgery. We [...] an appointment, please call our office at [phone] Friday through Friday from 8:30 am to4:30 pm. You can also request a routine appointment through your [employer] account. ??? Prescription Refills Contact your pharmacy [...] the medical exchange at and ask the mailing machine operator to page the ENT physician implementation engineer. *Caller ID blocking service will need to be turned off for your call to be returned. We also specialize in Hearing Aids, Allergy testing, swallowing disorders, voice problems, cancer diagnosis, and so much more. Visit our website at [email or web address] for information about our practice and an interactive health encyclopedia. documented in this encounter Progress Notes * Smita Deleon - 08/22/2021 11:12 AM CDT Review of Systems Kai Greene reports the following; Throat: hoarse voice, voice changes, pain or difficulty swallowing, frequent soreness or swelling * Douglas Tovar MD - 08/22/2021 11:00 AM CDT Chief Complaint: chronic headaches History of Present Illness 31 year old with a h/o throat discomfort. He was previously here with reports of experiencing a globus sensation that begun in June,. He also presented to Urgent Care where he was tested for COVID-19 and strep throat, both of which were negative. He was told symptoms were allergy related and was started on antihistamines. He took Claritin for 4 days, then switched to Zyrtec for 3 days. Also used Flonase during the same week. He followed up with his PA, who discontinued allergy medications as they were not improving his symptoms,and prescribed him Omeprazole for suspected silent reflux. Noted that he had occasional throat pain, 4-5/10, which was improved with applied pressure. Rarely had the need of Tums for indigestion, no history of jared heartburn. Has discontinued caffeine intake (9 days so far) and noted that he has experiencied frequent headaches. Unsure if this was due to decreased caffeine or use of Omeprazole. Noted a spot on bottom of tongue that was found in May, by his dentist. Scheduled biopsy, but this resolved prior to the appointment. Denies allergies. Kai is here today with reports of feeling no improvements. Since 07/09 has stopped all caffeine,raised bed 4 inches, humidifier, has eaten 3 hours before bed, diet has improved and lose around 10pounds. Main symptoms is post-nasal drip feeling in the throat. Bothers him in the morning and during the day. Takes Claritin daily and notes no real improvements. Took Tums, Pepcid, Omeprazole (did 30 days). Took Zyrtec and Flonase in March, and reports that he had bad headaches. Believed he had rebound effect from medications and stopping the caffeine, which led him to stopping taking all medications about 4 weeks ago. Believes that Pepcid is a trigger for the headaches. Reports that if there is post-nasal drip in the mornings, can get it out by clearing throat. Thoughthis only temporarily feels better. Dr. Duarte, INTAKE WORKER prescribed Nexium for headaches, began on Friday. No hx of allergy testing nor allergy shots No hx of sinus imaging. No hx of CHAPERON therapy. Review of Systems A 12-system review of systems was obtained and negative except for: Throat: hoarse voice, voice changes, pain or difficulty swallowing, frequent soreness or swelling Past Medical History: Diagnosis Date ??? Acid reflux ??? Migraines No past surgical history on file. Current Outpatient Medications Medication Sig Dispense Refill ??? azithromycin (ZITHROMAX) 250 MG tablet Take 2 tabs today, then 1 tab daily for next 4 days 6 tablet 0 ??? esomeprazole (NEXIUM) 40 MG capsule Take 1 (one) capsule by mouth daily before breakfast 30 capsule 2 ??? predniSONE (DELTASONE) 10 MG tablet Take 40 mg x 2 days, 30 mg x 2 days, 20 mg x 2 days, 10 mg x 2 days 20 tablet 0 ??? SUMAtriptan (IMITREX) 100 MG tablet Take 1 tablet by mouth once daily No current facility-administered medications for this visit. No Known Allergies Social History Tobacco Use ??? Smoking status: Never Smoker ??? Smokeless tobacco: Never Used Vaping Use ??? Vaping Use: Never used Substance Use Topics ??? Alcohol use: Yes Comment: 1 weekly ??? Drug use: Never No family history on file. Vitals There were no vitals taken for this visit. Physical Exam Constitutional: Alert, No acute Distress; Well developed/ Well nourished Declined male appears stated age. Neuro: cranial nerves III-XII grossly intact CV/Pulm: Normal respirations and peripheral pulses. Eyes: PERRL, EOMI Face/Skin: normal appearance, no lesions/masses Ears: Right: Normal external Auditory canal Left: Normal external Auditory canal Nose: patent bilaterally Mouth and oropharynx: symmetric tongue mobility, no lesions/masses/ulcers, Neck: supple, no lymphadenopathy, no masses Voice: strong MusculoSkeletal: moves all extremities well No notes on file Assessment and Plan Kai Hayes is a 31 year old male who presented today with chronic headaches. It was decided to: 1. Recommend to Get CT sinus scan 2. Prescribed Astelin and Atrovent 3. Recommend to get allergy testing with possible immunotherapy. I, Anish Rodas, acted as scribe for Douglas Tovar MD in documenting the service or procedure. To the best of my knowledge, I recorded what was dictated by Douglas Tovar MD. Provider: I, Douglas Tovar MD have reviewed the initial documentation provided by Anish Rodas and affirm that it is an accurate restatement of my dictated record of services. I understand and acknowledge that I am responsible for the accuracy of the documentation. This is a shared patient with Sabina Duarte. He has globus, phlegm, and constant swallowing in addition to his migraines. Globus is 4/10 but causing 9/10 anxiety per patient. I'll get a CT and try ipratropium plus astelin. But we could consider an anti-depressant or anti-anxiety medication next. I'll also do allergy testing. But maybe the anti-depressant would help his migraines AND the anxiety about his globus/phlegm/swallowing. Douglas Tovar MD documented in this encounter Plan of Treatment Not on file documented as of this encounter Visit Diagnoses Diagnosis Migraine without aura and without status migrainosus, not intractable- Primary Migraine without aura, without mention of intractable migraine without mention of status migrainosus Throat discomfort Throat pain Globus sensation Gastrointestinal malfunction arising from mental factors Frequent headaches documented in this encounter Care Teams Fruit Bar Maker Relationship Specialty Start Date End Date Kai Massey MD [address] [place] [phone] PCP - General Family Medicine 08/08/21 documented as of this encounter
--- OUTSIDE RECORDS SUMMARY | 2024-11-22 06:27 | XMS_ITS | Encounter Summary ---
Author Organization [facility] Address [address] [facility] [place] [address] Care Team Providers Care Injection Wax Molder Name Role Phone Kai Massey MD Primary Care Provider +1- [phone] Encounter Details Date Type Department Care Team (Latest Contact Info) Description 05/07/2023 Travel Social History Tobacco Use Types Packs/Day Years Used Date Smoking Tobacco: Never Smokeless Tobacco: Never Alcohol Use Standard Drinks/Week Comments Yes 0 (1 standard drink = 0.6 oz pur e alcohol) 1 weekly Sex and Gender Information Value Date Recorded Sex Assigned at Not on file Gender Identity Not on file Sexual Orientation Not on file COVID-19 Exposure Response Date Recorded In the last 10 days, have yo u been in contact with someone who was confirmed or suspected to have Coronavirus/COVID-19? No / Unsure 05/07/2023 1:55 PM CDT documented as of this encounter Plan of Treatment Not on file documented as of this encounter Visit Diagnoses Not on filedocumented in this encounter Care Teams Injection Wax Molder Relationship Specialty Start Date End Date Kai Massey MD [address] [place] [phone] PCP - General Family Medicine 08/08/21 documented as of this encounter
--- OUTSIDE RECORDS SUMMARY | 2024-11-22 06:27 | XMS_ITS | Clinical Summary ---
Author Organization [facility] Address [address] [place] [phone] Care Team Providers Care Regulatory Leader Name Role Phone Unavailable Primary Care Provider Unavailabl e Social History Tobacco Use Types Packs/Day Years Used Date Smoking Tobacco: Never Assessed Sex and Gender Information Value Date Recorded Sex Assigned at Not on file Legal Sex Male 2:54 PM CDT Gender Identity Not on file Sexual Orientation Not on file Plan of Treatment Health Maintenance Due Date Last Done Comments Hepatitis C Virus (HCV) Screening 1988 TdaP Immunization 1988 Hepatitis B Immunization (1 of 3 - 19+ 3-dose series) 2007 SARS-COV-2 Immunization (2022-24 season) 2023 Influenza Immunization (Seas on Ended) 2024 Meningococcal Immunization (ACWY) Aged Out No longer eligible based on patient's age to complete this topic Pneumococcal Immunization Combined Aged Out No longer eligible based on patient's age to complete this topic Rotavirus Immunization Aged Out No lo nger eligible based on patient's age to complete this topic
--- OUTSIDE RECORDS SUMMARY | 2024-11-22 06:27 | XMS_ITS | Encounter Summary ---
Author Organization [facility] Address [address] [place], [place] [address] [address] Care Team Providers Care Web Content Editor Name Role Phone Kai Massey MD Primary Care Provider [phone]- [phone] Reason for Visit * Reason Comments Sinus Problem Encounter Details Date Type Department Care Team (Late st Contact Info) Description 09/28/2021 10:15 AM CDT Office Visit [facility] OTOL[facility]OLOGY [address], [address] [place] [address] Douglas Tovar MD [facility] [place] [address] Acute recurrent pansinusitis (Primary Dx); Nasal discharge; Chronic rhinitis; Chronic migraine w/o aura w/o status migrainosus, not intractable Social History Tobacco Use Types Packs/Day Years [...] Sign Reading Time Taken Comments Blood Pressure 135/81 09/28/2021 10:07 AM CDT Pulse 90 09/28/2021 10:07 AM CDT Temperature - - Respiratory Rate - - Oxygen Saturation - - Inhaled Oxygen Concentration - - Weight 79.4 kg (175 lb) 09/28/2021 10:07 AM CDT Height 180.3 cm (5' 11 ) 09/28/2021 10:07 AM CDT Body Mass Index 24.41 09/28/2021 10:07 AM CDT documented in this encounter Patient Instructions * Patient Instructions* Jia Macias - 09/28/2021 10:08 AM CDT Take 1 tablet (25 mg) nightly for 2 weeks. If feeling groggy in the morning, try taking it earlier in the evening. If no improvement, or minimal improvement, increase to 50 mg nightly for 2 weeks. Then if no improvement, or minimal improvement, increase to 75 mg nightly for 2 weeks. Do not take more than 75 mg *(3 tabs) nightly. Thank you for visiting [facility] Otolaryngology - Head & Neck Surgery. [...] an appointment, please call our office at [phone] Friday through Friday from 8:30 am to4:30 pm. You can also request a routine appointment through your [employer] account. ??? Prescription Refills Contact your pharmacy [...] the medical exchange at and ask the beam press operator to page the ENT physician monomer recovery supervisor. *Caller ID blocking service will need to be turned off for your call to be returned. We also specialize in Hearing Aids, Allergy testing, swallowing disorders, voice problems, cancer diagnosis, and so much more. Visit our website at [email or web address] for information about our practice and an interactive health encyclopedia. documented in this encounter Progress Notes * Douglas Tovar MD - 09/28/2021 10:13 AM CDT Chief Complaint: headaches with runny nose History of Present Illness: 31 year old with a h/o 3 days of all day long clear/white runny nose, to the point of the nose becoming raw from having to use so many tissues. Feels that his throat had improved slowly over the pastfew months. Has had to take triptan. If his headaches go into a 4th or 5th day, then he goes into a rebound effect. Underwent abx and steroids after last sinusitis. 09/11-09/25 was the longest he went without a headache. Has allergy testing scheduled in 1 week. Has been on astelin and ipratropium. Was doing daily rinses until 3 days ago. Review of Systems: Negative times 13 (Including General, Psych, Neuro, HEENT, Resp, CV, GI, , Musculoskeletal, Derm,Heme/Lymph), except as noted in EPIC and reviewed by me. Past Medical History: Diagnosis Date ??? Acid reflux ??? Migraines PSH: has no past surgical history on file. Current Outpatient Medications Medication Sig Dispense Refill ??? alum hydroxide-mag carbonate (GAVISCON EXTRA STRENGTH) 508-475 MG/10ML Take 1 Dose by mouth once daily (Patient not taking: Reported on 09/28/2021) ??? amitriptyline (ELAVIL) 25 MG tablet Take 1 (one) tablet by mouth every evening 90 tablet 4 ??? azelastine (ASTELIN) 0.1 % nasal spray [place] 1 (one) spray into each nostril 2 times daily (Patient not taking: Reported on 09/28/2021) 30 mL 5 ??? clarithromycin (BIAXIN) 500 MG tablet Take 1 (one) tablet by mouth 2 times daily for 7 days 14 tablet 0 ??? esomeprazole (NEXIUM) 40 MG capsule Take 1 (one) capsule by mouth daily before breakfast (Patient not taking: Reported on 09/28/2021) 30 capsule 2 ??? ipratropium (ATROVENT) 0.03 % nasal spray [place] 1-2 sprays into each nostril 4 times daily - before meals & nightly (Patient not taking: Reported on 09/28/2021) 30 mL 5 ??? SUMAtriptan (IMITREX) 100 MG tablet Take 1 tablet by mouth once daily No current facility-administered medications for this visit. Allergies Patient has no known allergies. Social History Tobacco Use ??? Smoking status: Never Smoker ??? Smokeless tobacco: Never Used Vaping Use ??? Vaping Use: Never used Substance Use Topics ??? Alcohol use: Yes Comment: 1 weekly ??? Drug use: Never No family history on file. Physical Exam: Constitutional: Alert, No acute Distress; Well developed/well nourished Neuro:cranial nerves III-XII grossly intact CV/Pulm: Normal respirations and peripheral pulses. Eyes: PERRL, EOMI Face/Skin: normal appearance, no lesions/masses Ears: Right: Normal external Auditory canal Left: Normal external Auditory canal Nose: congested, turbinate hypertrophy, mucus Mouth and oropharynx: symmetric tongue mobility, no lesions/masses/ulcers, Neck: supple, no lymphadenopathy, no masses Voice: strong MusculoSkeletal: moves all extremities well Due to the findings on physical examination, in correlation with the patient's symptomatology, the decision was made to perform a procedure today in clinic. Consent obtained prior to starting procedure. Procedure note: Procedure: Rigid Nasal Endoscopy Pre Op Dx: Nasal secretions Post Op: same Anesthesia: Bilateral Nasal Cavities sprayed with Lidocaine and Neosynephrine Detail: Rigid nasal endoscopy performed bilaterally. Septum deviated superiorly. Right nasal cavityshowed patent airway, there were no polyps or purulence, but some mucus stranding. Left nasal cavity showed thin mucus with whitish discoloration, severe turbinate congestion/hypertrophy, there wereno polyps or jared purulence in middle meatus. Assessment and Plan: Kai Greene is a 31 year old male who presented today with continued phlegm, but decreased. After explaining the contributing factors in the differential diagnosis, the disease process was explained in great detail. All questions were answered. At this time, the decision was made to consider sinus surgery in the future, for now will try amitriptyline and Biaxin for likely recurrent pansinusitis. F/u in 4-6 weeks. Douglas Tovar MD 09/28/2021 10:30 AM * Jia Macias - 09/28/2021 10:06 AM CDT Review of Systems Kai Greene reports the following; Nose: sinus pain, post nasal drainage, congestion Throat: pain or difficulty swallowing documented in this encounter Procedure Notes * Douglas Tovar MD - 09/28/2021 10:28 AM CDTAssociated Order(s): PROC SINUS ENDOSCOPY Procedure(s): NH NASAL ENDOSCOPY,DX Pre-Procedure Diagnose(s): Acute recurrent pansinusitis; Nasal discharge; Chronic rhinitis; Chronicmigraine w/o aura w/o status migrainosus, not intractable Due to the findings on physical examination, in correlation with the patient's symptomatology, the decision was made to perform a procedure today in clinic. Consent obtained prior to starting procedure. Procedure note: Procedure: Rigid Nasal Endoscopy Pre Op Dx: Nasal secretions Post Op: same Anesthesia: Bilateral Nasal Cavities sprayed with Lidocaine and Neosynephrine Detail: Rigid nasal endoscopy performed bilaterally. Septum deviated superiorly. Right nasal cavityshowed patent airway, there were no polyps or purulence, but some mucus stranding. Left nasal cavity showed thin mucus with whitish discoloration, severe turbinate congestion/hypertrophy, there were no polyps or jared purulence in middle meatus. documented in this encounter Plan of Treatment Not on file documented as of this encounter Procedures Procedure Name Priority Date/Time Associated Diagnosis Comments NH NASAL ENDOSCOPY,DX Routine 09/28/2021 10:28 AM CDT Acute recurrent pansinusitis Nasal discharge Chronic rhinitis Chronic migraine w/o aura w/o status migrainosus, not intractable documented in this encounter Results * NH NASAL ENDOSCOPY,DX (09/28/2021 10:28 AM CDT) Narrative Douglas Tovar MD - 09/28/2021 10:28 AM CDT Douglas Tovar MD ? 09/28/2021 ??1:37 PM Due to the findings on physical examination, in correlation with the patient's symptomatology, the decision was made to perform a procedure today in clinic. Consent obtained prior to starting procedure. Procedure note: Procedure: Rigid Nasal Endoscopy Pre Op Dx: ??Nasal secretions Post Op: same Anesthesia: Bilateral Nasal Cavities sprayed with Lidocaine and Neosynephrine Detail: ??Rigid nasal endoscopy performed bilaterally. ??Septum deviated superiorly. Right nasal cavity showed patent airway, there were no polyps or purulence, but some mucus stranding. ?? Left nasal cavity showed thin mucus with whitish discoloration, severe turbinate congestion/hypertrophy, there were no polyps or jared purulence in middle meatus. Douglas Tovar MD PROCEDURE/MINOR RANDHAWA RGICAL ORDERABLES documented in this encounter Visit Diagnoses Diagnosis Acute recurrent pansinusitis- Primary Other acute sinusitis Nasal discharge Other diseases of nasal cavity and sinuses Chronic rhinitis Chronic migraine w/o aura w/o status migrainosus, not intractable Chronic migraine without aura, without mention of intractable migraine without mention of status migrainosus documented in this encounter Care Teams Web Content Editor Relationship Specialty Start Date End Date Kai Massey MD [address] [place] [phone] PCP - General Family Medicine 08/08/21 documented as of this encounter
--- OUTSIDE RECORDS SUMMARY | 2024-11-22 06:27 | XMS_ITS | Referral Summary ---
Author Organization [facility] Address [address] [place] [phone] Care Team Providers Care Braille Proofreader Name Role Phone Kai Massey MD Primary Care Provider +1 -[phone] Allergies No known active allergies Medications SUMAtriptan [...] THEN 1 ONCE DAILY FOR 2 DAYS (7-0-1-5-4-4- 3-3-2-2-1-1) 3 Active Active Problems Problem Noted Date Diagnosed Date Allergic rhinitis 09/03/2021 Social History Tobacco Use Types Packs/Day Years Used Date Smoking Tobacco: Never Alcohol Use Standard Drinks/Week Comments Yes 0 (1 standard drink = 0.6 oz pur e alcohol) Personal Safety Answer Date Recorded Getting School Help Needed Not on file 01/17 Sex and Gender Information Value Date Recorded Sex Assigned at Not on file Legal Sex Male 11:07 PM PICTURE 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
--- OUTSIDE RECORDS SUMMARY | 2024-11-22 06:27 | XMS_ITS | Encounter Summary ---
Author Organization [facility] Address [address] [place] [address] Care Team Providers Care Drafter Patent Name Role Phone Kai Massey MD Primary Care Provider +1- [phone] Reason for Visit * Reason Onset Date Comments Immunotherapy 10/03/2021 Benefit Check Encounter Details Date Type Department Care Team (Late st Contact Info) Description 10/03/2021 Telephone [facility]ology [address] [place] [address] Margi Pratt Immunotherapy (Benefit Check) Social History Tobacco Use Types Packs/Day Years Used Date Smoking Tobacco: Never Smokeless Tobacco: Never Alcohol Use Standard Drinks/Week Comments Yes 0 (1 standard drink = 0.6 oz pur e alcohol) 1 weekly Sex and Gender Information Value Date Recorded Sex Assigned at Not on file Gender Identity Not on file Sexual Orientation Not on file documented as of this encounter Miscellaneous Notes * Telephone Encounter - Margi Pratt - 10/03/2021 10:51 AM CST Per phone conversation with automated at [facility] on 10/03/2021 : Regarding allergy testing (88121, 52262): Each are covered at 90% of allowable amount after deductible is met. Regarding immunotherapy (96984 & 07549): Each are covered at 90% of allowable amount after deductible is met. Specialist copay: 0 Calendar year plan: $ 1400 has been applied towards $ 1400 individual deductible. $ 1420.23 has been applied towards $ 3100.00 family calendar year deductible. Authorization for above codes: none Referral for above codes: npr Policy effective 10/24/2015, current. No preexisting applies. Call reference number [id number] . [employer] documented in this encounter Plan of Treatment Not on file documented as of this encounter Visit Diagnoses Not on filedocumented in this encounter Care Teams Drafter Patent Relationship Specialty Start Date End Date Kai Massey MD [address] [place] [id number] PCP - General Family Medicine 08/08/21 documented as of this encounter
--- OUTSIDE RECORDS SUMMARY | 2024-11-22 06:27 | XMS_ITS | Encounter Summary ---
Author Organization [facility] Address [address] [place] [address] Care Team Providers Care Parts Back Counter Man Name Role Phone Kai Massey MD Primary Care Provider +1- [phone] Reason for Visit * Reason Comments Throat Problem Encounter Details Date Type Department Care Team (Late st Contact Info) Description 05/07/2023 2:00 PM CDT Office Visit [facility] - ENT [address] [place] [address] Douglas Tovar MD [address] [place] [address] Globus sensation (Primary Dx); Post-nasal drip; Throat discomfort; Gastroesophageal reflux disease, unspecified whether esophagitis present Social History Tobacco Use Types Packs/Day Years [...] PM CDT documented as of this encounter Last Filed [...] Mass Index 25.94 05/07/2023 2:06 PM CDT documented in this encounter Patient Instructions * Patient Instructions* Douglas Tovar MD - 05/07/2023 2:06 PM CDT Reflux therapy after getting pH probe from GI doctor. Allergy meds Amitriptyline Superior laryngeal nerve injections Speech Pathology visits Allergy shots 7. Repeat CT scan for sinusitis Take 1 tablet (25 mg) nightly for 2 weeks. If feeling groggy in the morning, try taking it earlier in the evening. If no improvement, or minimal improvement, increase to 50 mg nightly for 2 weeks. Then if no improvement, or minimal improvement, increase to 75 mg nightly for 2 weeks. Do not take more than 75 mg *(3 tabs) nightly. For allergic rhinitis, or eustachian tube dysfunction, okay to try the following: Okay to try the following terminal operations supervisor: Flonase (fluticasone)/Rhinocort (budesonide)/ Nasocort (triamcinolone), or other steroid spray are OTC (over the counter) nasal steroid spray. These can be used 1-2 sprays, once or twice a day. Zyrtec (certirizine), Claritin (loratidine), or Danuta (fexofenadine) or other antihistamine tablets can be taken more than twice a day (up to four times) if needed. Benadryl (diphenhidramine) at night can help dry up the nasal secretions as well, this usually causes drowsiness. Short term medications Afrin (oxymetazoline) or Neosynephrine are nasal decongestant sprays, but can only be used for 3 days in a row. Then stop. Only use this 1-2 times per month for 3 days each time. Sudafed (psuedoephedrine) can cause high blood pressure. Only take this for 2 weeks in a row, and avoid if you suffer from high blood pressure. For laryngopharyngeal reflux, silent heartburn, globus sensation (something feels stuck in your throat), constant throat clearing, post nasal drip, phlegm, foul taste in mouth, bad breath, chronic cough or GERD, try the following: Things to avoid: Advil/ibuprofen/Aleve/NSAIDS (Tylenol is okay though) Coffee (even decaf coffee causes problems) Alcohol Spicy foods Chocolate Mint Menthol/cough drops Heavy starch foods (bread/pasta/ gluten [yes, you too can try a gluten free diet if you dare]) Tomatoes or tomato based foods Machias foods (fried food, fast food) Caffeine Caffeinated tea (avoid mint tea but other herbal, caffeine free teas are okay, and decaf tea is okay) AVOID EATING near bedtime. Try to eat several hours before laying down. Do not drink a large glass of water prior to laying down. Only small sips of water within 2 hours of laying down. Raising your head of bed by having two wooden blocks or large phone books installed under your bed is better than just propping yourself on pillows as this kinks the neck/esophagus. Eating several (six) small meals a day rather than large meals will help. Try the following over the counter meds: Tums (calcium carbonate) Maalox (bicarbonate) Milk of magnesia (hydroxide) Then try an acid reducing medication: The daily dose for different types of H2 receptor blockers are: Pepcid, Famotidine 20 mg twice daily H2 receptor blockers may give side effects of headache, constipation, and diarrhea. For severe reflux, try a proton-pump inhibitor: The daily dose for different types of PPIs are: Omeprazole (PRILOSEC) 20 mg once a day Lansoprazole (PREVACID) 30 mg once a day Pantoprazole (PROTONIX) 40 mg once a day Esomeprazole (NEXIUM) 40 mg once a day PPIs may present side effects of headache, stomachache, and an urge to vomit. Some patients may even require a double dose twice a day for a few months to try and break the cycle of throat-clearing/coughing/etc. If you take a PPI (proton-pump inhibitor) for more than 3 months, you need a daily calcium supplement as well. Do not use long-term unless you are seen by a GI doctor. LOSING WEIGHT CAN OFTEN HELP WELL. IF YOU ARE A SMOKER, THIS IS ONE MORE REASON TO QUIT (It also causes reflux) Stress and anxiety increase reflux. Meditation, relaxation techniques, counseling, yoga, etc all can decrease reflux. Thank you for visiting [facility] Otolaryngology - Head & Neck Surgery. We [...] it???s time for you to contact us. To MAKE - CHANGE - CANCEL an office appointment If you become ill, need to be seen before your next scheduled appointment, or need to cancel or reschedule an appointment, please call our office at [phone] Friday through Friday from 8:30 am to4:30 pm. You can also request a routine appointment through your [employer] account. Prescription Refills Contact your pharmacy to request all refills. The pharmacy will need to fax the request to us at . Please allow a minimum of 48-72 hours for your prescription to be completed. Your pharmacy will notify you when your prescription is ready to be picked up. Medical Emergency / After Hours Contact Information If you have a medical emergency, please call 911 or go to the nearest emergency room. For urgent medical calls, which cannot wait until the office opens, please call the medical exchange at and ask the mill control operator to page the ENT physician outpatient receptionist. *Caller ID blocking service will need to be turned off for your call to be returned. We also specialize in Hearing Aids, Allergy testing, swallowing disorders, voice problems, cancer diagnosis, and so much more. Visit our website at [email or web address] for information about our practice and an interactive health encyclopedia. documented in this encounter Progress Notes * Douglas Tovar MD - 05/07/2023 2:16 PM CDT Chief Complaint: globus sensation History of Present Illness 33 year old with a h/o post nasal drip and constant throat clearing. He has a h/o acid reflux and has been taking Pepcid. He has also gone through allergy testing. Previously tried Amitriptyline but does not think this seemed to help. Has seen myself and other ENT's in the past for similar problems. Has had a flexible scope that was normal and his allergy testing was minimally positive. Review of Systems A 12-system review of systems was obtained and negative except for: Past Medical History: Diagnosis Date ??? Acid reflux ??? Migraines No past surgical history on file. Current Outpatient Medications Medication Sig Dispense Refill ??? Aimovig 140 MG/ML auto injector pen Inject 1 mL subcutaneously every 30 days ??? finasteride (Propecia) 1 MG tablet Take 1 (one) tablet by mouth once daily ??? SUMAtriptan (IMITREX) 100 MG tablet Take 1 (one) tablet by mouth once daily No current facility-administered medications for this visit. No Known Allergies Social History Tobacco Use ??? Smoking status: Never ??? Smokeless tobacco: Never Vaping Use ??? Vaping Use: Never used Substance Use Topics ??? Alcohol use: Yes Comment: 1 weekly ??? Drug use: Never No family history on file. Vitals BP 127/78 Pulse 73 Ht 1.803 m (5' 11 ) Wt 84.4 kg (186 lb) Physical Exam Constitutional: Alert, No acute Distress; Well developed/ Well nourished Declined male appears stated age. Neuro: cranial nerves III-XII grossly intact CV/Pulm: Normal respirations and peripheral pulses. Eyes: PERRL, EOMI Face/Skin: normal appearance, no lesions/masses Ears: Right: Normal external Auditory canal Left: Normal external Auditory canal Nose: patent bilaterally,Turbinates intact, Mucosal membranes intact, septum is intact Mouth and oropharynx: symmetric tongue mobility, no lesions/masses/ulcers, Neck: supple, no lymphadenopathy, no masses Voice: strong MusculoSkeletal: moves all extremities well Assessment and Plan Kai Greene is a 33 year old male who presented today with throat clearing and post nasal drip. After explaining the contributing factors in the differential diagnosis, the disease process was explained in great detail. All questions were answered. At this time it was decided to trial Amitriptyline, obtain CT of sinuses. GI referral was also given. James, Rebecca Newberry, acted as scribe for Douglas Tovar MD in documenting the service or procedure. To the best of my knowledge, I recorded what was dictated by Douglas Tovar MD. I, Douglas Tovar MD have reviewed the initial documentation provided by Rebecca Newberry and affirm that it is an accurate restatement of my dictated record of services. I understand and acknowledge that I am responsible for the accuracy of the documentation. 1. Reflux therapy after getting pH probe from GI doctor. 2. Allergy meds 3. Amitriptyline 4. Superior laryngeal nerve injections 5. Speech Pathology visits 6. Allergy shots 7. Repeat CT scan for sinusitis Douglas Tovar MD documented in this encounter Plan of Treatment Not on file documented as of this encounter Visit Diagnoses Diagnosis Globus sensation- Primary Gastrointestinal malfunction arising from mental factors Post-nasal drip Postnasal drip Throat discomfort Throat pain Gastroesophageal reflux disease, unspecified whether esophagitis present documented in this encounter Care Teams Parts Back Counter Man Relationship Specialty Start Date End Date Kai Massey MD [address] [place] [phone] PCP - General Family Medicine 08/08/21 documented as of this encounter
--- OUTSIDE RECORDS SUMMARY | 2024-11-22 06:27 | XMS_ITS | Continuity of Care Document ---
Author Organization [facility] Address [address] [place] [address] Phone Care Team Providers Care Ethics Officer Name Role Phone Esteban PT,MPT,ATC, Jimmie Unavailable Unavai lable Procedures Procedure Date Therapeutic Activities Therapeutic Activities Neuromuscular Re-Ed Manual Therapy Therapeutic Activities Neuromuscular Re-Ed PT Evaluation Moderate Complexity Therapeutic Activities Neuromuscular Re-Ed Advance Directives Directive Yes / No Effective Date File Name No Information Encounters Encounter Description Practice Location Reason(s) For Visit Diagnoses Date Provider Providers Copied on Encounter [facility], [address] [address], [place], [place], [id number], tel:[phone] [place] No Information 4 Esteban Foster [place], [place], [place]. Referring Provider: Kai Massey, [address] [place], [address]. tel:[phone] [facility] [address] [place] [address], [id number], tel:[phone] [place] No Information 4 Esteban Foster [place], [place]. Referring Provider: Kai Massey, [address] [place], [address]. tel:[phone] [facility] [address] [facility], [place], [place], [id number], tel:[phone] [place] No Information 4 [place]an [place] Referring Provider: Kai Massey, [address] [place], [address]. tel:[phone] [facility] [place], [address], [place], [place], [id number], [place] tel:[phone] [place] No Information 4 [place] Referring Provider: Kai Massey, [address] [place], [address]. tel:[phone] Family History Family Member Type Diagnosis Age At Onset No Information Payers Payer name Insurance type Covered alliance party ID Authorrula velazquez(s) [facility] [id number] Social History Type Description Quantity Date Captured Comments Sex Male Smoking Status No Information Chief Complaint And Reason For Visit No Information Reason For Referral Reason For Referral No Information History Of Present Illness Encounter Date Complaint History Of Prese nt Illness No Information Functional Status Date Functional Assessmen t No Information Instructions Date Instruction Additional Infor mation No Information Assessments Type Assessment Date No Information Patient Care Teams Name Effective Dates (start - stop) Status Members No Information
--- OUTSIDE RECORDS SUMMARY | 2024-11-22 06:27 | XMS_ITS | Encounter Summary ---
Author Organization [facility] Health Address [facility] [facility] [place] [address] Care Team Providers Care Policy And Planning Manager Name Role Phone Unavailable Primary Care Provider Unavailabl e Reason for Visit * Reason Comments Establish Care Throat Problem Encounter Details Date Type Department Care Team (Late st Contact Info) Description 07/18/2021 10:30 AM CDT Office Visit [facility] [address], [address] [place] [address] Douglas Tovar MD [facility] [place] [address] Throat discomfort (Primary Dx); Globus sensation; Tongue lesion; Frequent headaches Social History Tobacco Use Types [...] Sign Reading Time Taken Comments Blood Pressure 119/86 07/18/2021 10:41 AM CDT Pulse 81 07/18/2021 10:41 AM CDT Temperature - - Respiratory Rate - - Oxygen Saturation - - Inhaled Oxygen Concentration - - Weight 83.9 kg (185 lb) 07/18/2021 10:41 AM CDT Height 180.3 cm (5' 11 ) 07/18/2021 10:41 AM CDT Body Mass Index 25.8 07/18/2021 10:41 AM CDT documented in this encounter Patient Instructions * Patient Instructions* Smita Deleon - 07/18/2021 10:42 AM CDT For laryngopharyngeal reflux, silent heartburn, globus sensation [...] you dare]) Tomatoes or tomato based foods [place]inea foods (fried food, fast food) Caffeine Caffeinated [...] can decrease reflux. Thank you for visiting [facility] Ot[facility] - Head & Neck Surgery. We [...] an appointment, please call our office at [phone] Friday through Friday from 8:30 am to4:30 pm. You can also request a routine appointment through your [employer] account. ??? Prescription Refills Contact your pharmacy [...] the medical exchange at and ask the ctc operator to page the ENT physician friction welding machine operator. *Caller ID blocking service will need to be turned off for your call to be returned. We also specialize in Hearing Aids, Allergy testing, swallowing disorders, voice problems, cancer diagnosis, and so much more. Visit our website at [email or web address] for information about our practice and an interactive health encyclopedia. documented in this encounter Progress Notes * Smita Deleon - 07/18/2021 10:42 AM CDT Review of Systems Kai Hayes reports the following; Throat: voice changes, pain or difficulty swallowing, frequent soreness or swelling * Douglas Tovar MD - 07/18/2021 10:30 AM CDT Chief Complaint: need to swallow History of Present Illness 31 year old with a h/o throat discomfort. He is here today with reports of experiencing a globus sensation beginning in June. He presented to Urgent Care where he was tested for COVID-19 and strep throat, both of which were negative. He was told symptoms were allergy related and started on antihistamines. He took Claritin for 4 days, then switched to Zyrtec for 3 days. Also used Flonase during this week. He followed up with his PA, whodiscontinued allergy medications as they were not improving his symptoms, and prescribed him Omeprazole for suspected silent reflux. Notes that his occasionally has throat pain, 4-5/10, which is improved with applied pressure. Rarely has needed Tums for indigestion, no history of jared heartburn. Has discontinued caffeine intake (9 days so far) and notes that he has been experiencing frequent headaches. Unsure if this is due to decreased caffeine or use of Omeprazole. Notes a spot on bottom of tongue that was found in May by his dentist. Scheduled biopsy, but this resolved prior to the appointment. Denies allergies. Review of Systems A 12-system review of systems was obtained and negative except for: Throat: voice changes, pain or difficulty swallowing, frequent soreness or swelling Past Medical History: Diagnosis Date ??? Acid reflux ??? Migraines No past surgical history on file. Current Outpatient Medications Medication Sig Dispense Refill ??? famotidine (PEPCID) 20 MG tablet Take 1 (one) tablet by mouth 2 times daily 60 tablet 3 ??? fluticasone propionate (FLONASE) 50 MCG/ACT nasal spray [place] 2 (two) sprays into each nostril once daily 16 g 3 ??? nystatin (MYCOSTATIN) 091230 UNIT/ML suspension Swish and swallow 5 mL 4 times daily for 10 days 200 mL 0 ??? omeprazole (PRILOSEC) 20 MG capsule Take 20 mg by mouth once daily ??? SUMAtriptan (IMITREX) [...] No family history on file. Vitals BP 119/86 Pulse 81 Ht 5' 11 (1.803 m) Wt 185 lb (83.9 kg) BMI 25.8 kg/m2 Physical Exam Constitutional: Alert, No acute Distress; Overweight Declined male appears stated age. Neuro: cranial [...] obtained prior to starting procedure. Procedure note: Pre Op Dx: throat irritation Post Op: Same Procedure: Flexible laryngoscopy Surgeon: Guy After consent was obtained, a flexible fiberoptic endoscopy was performed. The patient's nose was sprayed with lidocaine and decongestant. After giving several minutes to allow the medications to work, the scope was introduced into the bilateral nasal cavity. Normal mucosa was identified, there were no masses, no pus or polyps were seen. Nasopharynx showed mucus stranding. Next we proceeded with the remainder of laryngoscopy. The hypopharynx was normal. The bilateral vocal cords were mobile and symmetric. There was significant cobblestoning of the posterior pharyngeal wall. No masses or lesions were identified. The remainder of the flexible laryngoscopy was normal. Findings: 1. Mucus stranding on posterior nasopharynx 2. Cobblestoning on posterior pharyngeal wall. I (Dr. Tovar), was present for the entire procedure and verify that the patient tolerated the procedure well. Assessment and Plan Kai Hayes is a 31 year old male who presented today with throat discomfort, globus sensation. Upon endoscopy, there is noted mucous in the nasopharynx and cobblestoning. After explaining the contributing factors in the differential diagnosis, the disease process was explained in great detail. All questions were answered. At this time it was decided to discontinue use of Omeprazole. Will have him restart use of Flonase,Zyrtec and Nystatin. Instructed to begin using Pepcid daily. Instructed patient to begin using nasal saline irrigations daily. Bottle and instruction provided in clinic today. RTC in 7 or 8 weeks or sooner with any issue. I, Yesenia Guerra, acted as scribe for Douglas Tovar MD in documenting the service or procedure. To the best of my knowledge, I recorded what was dictated by Douglas Tovar MD. Provider: IDouglas MD have reviewed the initial documentation provided by Yesenia Guerra and affirm that it is an accurate restatement of my dictated record of services. I understand and acknowledge that I am responsible for the accuracy of the documentation. Patient feels the need to swallow constantly, off and on throughout the day, for the past several weeks. Most likely, considering his cobblestoning on the posterior pharyngeal wall, as well as the mucus stranding seen in the adenoid region, this most likely represents a version of laryngopharyngealreflux and globus sensation. We will continue his current attempts of controlling the rhinitis as well as reflux. Douglas Tovar MD documented in this encounter Procedure Notes * Douglas Tovar MD - 07/18/2021 3:04 PM CDTAssociated Order(s): PROC ENDOSCOPY-LARYNX Procedure(s): GA LARYNGOSCOPY,FLEX FIBER,DIAGNOSTIC Pre-Procedure Diagnose(s): Throat discomfort; Globus sensation Due to the findings on physical examination, in correlation with the patient's symptomatology, the decision was made to perform a procedure today in clinic. Consent obtained prior to starting procedure. Procedure note: Pre Op Dx: throat irritation Post Op: Same Procedure: Flexible laryngoscopy Surgeon: Guy After consent was obtained, a flexible fiberoptic endoscopy was performed. The patient's nose was sprayed with lidocaine and decongestant. After giving several minutes to allow the medications to work, the scope was introduced into the bilateral nasal cavity. Normal mucosa was identified, there were no masses, no pus or polyps were seen. Nasopharynx showed mucus stranding. Next we proceeded with the remainder of laryngoscopy. The hypopharynx was normal. The bilateral vocal cords were mobile and symmetric. There was significant cobblestoning of the posterior pharyngeal wall. No masses or lesions were identified. The remainder of the flexible laryngoscopy was normal. Findings: 1. Mucus stranding on posterior nasopharynx 2. Cobblestoning on posterior pharyngeal wall. I (Dr. Tovar), was present for the entire procedure and verify that the patient tolerated the procedure well. documented in this encounter Plan of Treatment Not on file documented as of this encounter Procedures Procedure Name Priority Date/Time Associated Diagnosis Comments GA LARYNGOSCOPY,FLEX FIBER,DIAGNOSTIC Routine 07/18/2021 3:04 PM CDT Throat discomfort Globus sensation documented in this encounter Results * GA LARYNGOSCOPY,FLEX FIBER,DIAGNOSTIC (07/18/2021 3:04 PM CDT) Narrative Douglas Tovar MD - 07/18/2021 3:04 PM CDT Douglas Tovar MD ? 07/19/2021 ??8:10 AM Due to the findings on physical examination, in correlation with the patient's symptomatology, the decision was made to perform a procedure today in clinic. Consent obtained prior to starting procedure. Procedure note: Pre Op Dx: throat irritation Post Op: Same Procedure: Flexible laryngoscopy Surgeon: Guy After consent was obtained, a flexible fiberoptic endoscopy was performed. The patient's nose was sprayed with lidocaine and decongestant. After giving several minutes to allow the medications to work, the scope was introduced into the bilateral nasal cavity. Normal mucosa was identified, there were no masses, no pus or polyps were seen. Nasopharynx showed mucus stranding. Next we proceeded with the remainder of laryngoscopy. The hypopharynx was normal. The bilateral vocal cords were mobile and symmetric. There was significant cobblestoning of the posterior pharyngeal wall. ??No masses or lesions were identified. The remainder of the flexible laryngoscopy was normal. Findings: 1. Mucus stranding on posterior nasopharynx 2. Cobblestoning on posterior pharyngeal wall. I (Dr. Tovar), was present for the entire procedure and verify that the patient tolerated the procedure well. Douglas Tovar MD PROCEDURE/MINOR RANDHAWA RGICAL ORDERABLES documented in this encounter Visit Diagnoses Diagnosis Throat discomfort- Primary Throat pain Globus sensation Gastrointestinal malfunction arising from mental factors Tongue lesion Other specified conditions of the tongue Frequent headaches documented in this encounter
--- OUTSIDE RECORDS SUMMARY | 2024-11-22 06:27 | XMS_ITS | Referral Summary ---
Author Organization [facility] Address [address] [place] [address] Care Team Providers Care Generation Manager Name Role Phone Kai Massey MD Primary Care Provider [phone]- [phone] Source Comments [facility],non-owned Affiliates and Associated Physician Practices is amultiple site organization consisting of ambulatory clinics and hospital sitesin [place], [place], [place] and [place]. This disclosure is being madepursuant to the Care Everywhere program and may not contain all information available regarding this patient. Last updated 18.[facility] Encounters Date Type Department Care Team Description 11/18/2024 Lab Requisition [facility] - Pathology Lab [address] [place] [id number] Sudhakar Pagan MD Illness, unspecified from Last 3 Months Allergies No known active allergies Medications * [...] Active Active Problems No known active problems Immunizations Name Administration Dates Next Due INFLUENZA [...] 05/07/2023 2:06 PM CDT Plan of Treatment Not on file Care Teams Generation Manager Relationship Specialty Start Date End Date Kai Massey MD [address] [place] [phone] PCP - General Family Medicine 08/08/21
--- OUTSIDE RECORDS SUMMARY | 2024-11-22 06:27 | XMS_ITS | Encounter Summary ---
Author Organization [facility] Address [address] [place], [place] [address] [address] Care Team Providers Care Industrial Ecology Technician Name Role Phone Kai Massey MD Primary Care Provider [phone]- [phone] Reason for Visit * Reason Comments Throat Culture Encounter Details Date Type Department Care Team (Late st Contact Info) Description 02/13/2023 4:00 PM CDT Office Visit [facility] [address] [place] [address] Sabina Duarte, NENA-MONIKA [address] [place] [address] Neck pain (Primary Dx) Social History Tobacco Use Types Packs/Day Years Used Date Smoking Tobacco: Never Smokeless Tobacco: Never Tobacco Cessation:Counseling Given: Not Answered Alcohol Use Standard Drinks/Week Comments Yes 0 [...] - Inhaled Oxygen Concentration - - Weight 86.2 kg (190 lb) 02/13/2023 4:14 PM CDT Height 180.3 cm (5' 11 ) 02/13/2023 4:14 PM CDT Body Mass Index 26.5 02/13/2023 4:14 PM CDT documented in this encounter Progress Notes * Sabina Duarte APRN-CNP - 02/13/2023 4:40 PM CDT History of Present Illness: Kai Greene is a 33 year old male who presents for evaluation of neck pain. History of migraines for the past several years, on Amitriptyline and Aimovig--Imitrex for acute headaches States that his neck has been sore for the past month, only on the right side. No pain with swallowing, no lumps as noted per patient. Has noted that his throat feels a little itchy this week. Saw outside ENT who scoped the patient and per the patient this was normal. History of questionable reflux? Was on a PPI a few years ago, no longer takes this Past Medical History: Past Medical History: Diagnosis Date ??? Acid reflux ??? Migraines has no past surgical history on file. Current Outpatient Medications Medication Sig Dispense Refill ??? Aimovig 140 MG/ML auto injector pen INJECT THE CONTENTS OF 1 PEN (140MG) SUBCUTANEOUSLY ONCE EVERY MONTH ??? alum hydroxide-mag carbonate (GAVISCON EXTRA STRENGTH) 508-475 MG/10ML Take 1 Dose by mouth once daily (Patient not taking: Reported on 09/28/2021) ??? amitriptyline (ELAVIL) 25 MG tablet Take 1 (one) tablet by mouth every evening 90 tablet 4 ??? azelastine (ASTELIN) 0.1 % nasal spray [place] 1 (one) spray into each nostril 2 times daily (Patient not taking: Reported on 09/28/2021) 30 mL 5 ??? esomeprazole (NEXIUM) 40 MG capsule Take 1 (one) capsule by mouth daily before breakfast (Patient not taking: Reported on 09/28/2021) 30 capsule 2 ??? finasteride (Propecia) 1 MG tablet Take 1 (one) tablet by mouth once daily ??? ipratropium (ATROVENT) 0.03 % nasal spray [place] 1-2 sprays into each nostril 4 times [...] allergies. Review of Systems: REVIEW OF SYSTEMS: Neck pain Physical Exam: General: WDWN Head and Face: facial movement was normal [...] normal mucosa Neck: no asymmetry, masses, or scars, supple without significant adenopathy, trachea midline Thyroid: Normal Respiratory: unlabored breathing Neuro: alert, oriented x3, affect appropriate, no focal neurological deficits, moves all extremities well, no involuntary movements Skin: Skin color, texture, turgor normal. No rashes or lesions Assessment and Plan: Neck Pain: Muscular vs carotidynia. Recommended NSAIDs x 10 days. If no improvement could consider CT scan vs in office steroid injection Patient to send me a message after he uses the NSAIDs for 10 days documented in this encounter Plan of Treatment Not on file documented as of this encounter Visit Diagnoses Diagnosis Neck pain- Primary Cervicalgia documented in this encounter Care Teams Industrial Ecology Technician Relationship Specialty Start Date End Date Kai Massey MD [address] [place] [phone] PCP - General Family Medicine 08/08/21 documented as of this encounter
--- OUTSIDE RECORDS SUMMARY | 2024-11-22 06:27 | XMS_ITS | Encounter Summary ---
Author Organization [facility] Address [address] [place] [address] Care Team Providers Care Bill Adjuster Name Role Phone Kai Massey MD Primary Care Provider [phone]- [phone] Reason for Visit * Reason Onset Date Comments Med Question 08/17/2021 Encounter Details Date Type Department Care Team (Late st Contact Info) Description 08/17/2021 Telephone [facility] [address] [place] [phone] Sabina Duarte, DARKROOM TECHNICIAN-MAKE UP ARTIST [address] [place] [id number] Med Question Social History Tobacco Use Types Packs/Day Years [...] encounter Miscellaneous Notes * Telephone Encounter - Rae Gonzalez - 08/17/2021 3:03 PM CDT Spoke with patient. Patient still having GERD but headaches have improved. Verbal order from Sabina Duarte DNP to prescribe nexium 40 mg daily in the AM with quantity of 30 tablets with two refills. The patient understands and agrees with plan of care. documented in this encounter Plan of Treatment Not on file documented as of this encounter Visit Diagnoses Not on filedocumented in this encounter Care Teams Bill Adjuster Relationship Specialty Start Date End Date Kai Massey MD [facility] [place] [phone] PCP - General Family Medicine 08/08/21 documented as of this encounter
--- OUTSIDE RECORDS SUMMARY | 2024-11-22 06:27 | XMS_ITS | Patient Health Summary ---
Author Organization [facility] Address [address] [facility] [place] [address] Care Team Providers Care Fire Extinguisher Sprinkler Inspector Name Role Phone Kai Massey MD Primary Care Provider [phone]- [phone] Note from [facility],non-owned Affiliates and Associated Physician Practices is amultiple site organization consisting of ambulatory clinics and hospital sitesin [place], [place], [place] and [place]. This disclosure is being madepursuant to the Care Everywhere program and may not contain all information available regarding this patient. Last updated 18.[facility] Allergies No known active allergies Medications * Be aware that medications may not be up to date on this document. Alwaysverify current medications with the patient. * SUMAtriptan (IMITREX) 100 MG tablet(Started 05/24/2021) Take 1 (one) tablet by mouth once daily * Aimovig 140 MG/ML auto injector pen(Started 02/06/2023) Inject 1 mL subcutaneously every 30 days * finasteride (Propecia) 1 MG tablet(Started 01/30/2023) Take 1 (one) tablet by mouth once daily * amitriptyline (Elavil) 25 MG tablet(Started 05/07/2023) Take 1 (one) tablet by mouth every evening 2 refills by 05/06/2024 Active Problems No known active problems Immunizations * INFLUENZA VACCINE, CELL CULTURE, QUADR. (FLUCELVAX QUADRIVALENT; 6MO+) (CCIIV4)(Given 09/26/2022, 09/25/2020) Social History Tobacco Use Types Packs/Day Years [...] Mass Index 25.94 05/07/2023 2:06 PM CDT Procedures * NM NASAL ENDOSCOPY,DX(Performed 09/28/2021) Performed for Acute recurrent pansinusitis, Nasal discharge, Chronic rhinitis, Chronic migraine w/oaura w/o status migrainosus, not intractable * NM LARYNGOSCOPY,FLEX FIBER,DIAGNOSTIC(Performed 07/18/2021) Performed for Throat discomfort, Globus sensation Results * NM NASAL ENDOSCOPY,DX (09/28/2021 10:28 AM CDT) Douglas Mae MD - 09/28/2021 10:28 AM CDT Douglas [...] Douglas Tovar MD PROCEDURE/MINOR RANDHAWA RGICAL ORDERABLES * NM LARYNGOSCOPY,FLEX FIBER,DIAGNOSTIC (07/18/2021 3:04 PM CDT) Douglas Mae MD - 07/18/2021 3:04 PM CDT Douglas [...] Douglas Tovar MD PROCEDURE/MINOR RANDHAWA RGICAL ORDERABLES Care Teams Fire Extinguisher Sprinkler Inspector Relationship Specialty Start Date End Date Kai Massey MD [address] [place] [phone] PCP - General Family Medicine 08/08/21
--- OUTSIDE RECORDS SUMMARY | 2024-11-22 06:28 | XMS_ITS | Encounter Summary ---
Author Organization [facility] Address [address] [place] [address] Phone Care Team Providers Care Dry Dip Worker Name Role Phone Kai Massey MD Primary Care Provider [phone] [phone] Reason for Referral * Diagnostic Imaging (Routine) - Closed Specialty Diagnoses / Procedures Referred By Contac t Referred To Contact Diagnoses Right knee pain, unspecified chronicity Procedures XR Knee Right 3 View Kendrick Soler MD Phone: tel: fax: [facility] Referral ID Status Reason Start Date Expiration Date Visits Re quested Visits Authorized [id number] Closed 07/05/2019 01/13/2021 1 1 Reason for Visit * Reason Comments Pain Encounter Details Date Type Department Care Team (Late st Contact Info) Description 07/05/2019 10:00 AM CDT Office Visit [facility] Orthopaedic Surgery [address] 2nd [address] [place] [address] [place] [address] [place] [address] Right knee pain, unspecified chronicity (Primary Dx); Chondromalacia Social History Tobacco Use Types Packs/Day Years Used Date Smoking Tobacco: Never Alcohol Use Standard Drinks/Week Comments Yes 0 (1 standard drink = 0.6 oz pur e alcohol) Sex and Gender Information Value Date Recorded Sex Assigned at Not on file 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 NEW PATIENT VISIT CHIEF COMPLAINT: Pain of the Right Knee HISTORY OF PRESENT ILLNESS: 29-year-old male presenting today with right knee complaints. He has had a longstanding history of anterior knee pain. He had what sounds like a patellar dislocation 6 years ago for which he never had an evaluation because he did not have insurance at the time. Since then he has had gradual onset worsening anterior knee pain with crepitus. No jared locking or catching. No obvious intermittent effusions. He gets pain with going up and down stairs, squatting, kneeling. He takes anti-inflammatories before workouts which help somewhat. 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 Otherwise healthy. PAST MEDICAL HISTORY He has a past medical history of Migraines. PAST SURGICAL HISTORY He has no past surgical history on file. INITIAL REVIEW OF MEDICATIONS He has a current medication list which includes the following prescription(s): sumatriptan. DRUG ALLERGIES He has No Known Allergies. SOCIAL HISTORY He reports that he has never smoked. He does not have any smokeless tobacco history on file. He reports that he drinks alcohol. He reports that he does not use drugs. FAMILY HISTORY His family history is not on file. REVIEW OF SYSTEMS ROS per HPI, otherwise please see patient questionnaire. PHYSICAL EXAMINATION: Well-appearing male in no acute distress. Alert or x4. Nonlabored breathing. BMI 25. Examination right knee shows no concerning skin findings. No effusion. Nontender palpation throughout the knee. Range of motion 0-140. No pain with hyperextension or hyperflexion. Negative Sahara's. No pain with deep squat. Negative Thessaly. 1A Lisbeth, stable anterior drawer and posterior drawer. Stable varus valgus stress test at 0 and 30??. Negative patellar apprehension. Negative patellar grind. Sensation intact to light touch and motor intact throughout the extremity in all nerve distributions. 2+ DP PT pulse regular rate and rhythm. REVIEW OF IMAGING: Plain films of the right knee today show lateral patellar tracking. Otherwise unremarkable per IMPRESSION: 29-year-old male with patellofemoral pain syndrome, mild patellofemoral chondrosis TREATMENT PLAN: At this visit, we discuss patellofemoral chondrosis at length with the patient. We counseled him onavoiding high-risk activities. We would like to manage this conservatively. We have given a prescription for physical therapy. We have also offered him a prescription for anti-inflammatory, however he feels that is doing okay with [id number] ibuprofen. Follow-up as needed. All questions are an swered Cleveland Templeton MD Orthopaedic Surgery [facility] Cleveland Templeton MD dictating using C4M software. I was present for the critical portion of the history, physical examination, and participated in the radiographic review and medical decision making for this patient. I agree with the findings in thereport of the above residence/fellow dictating using C4M software. documented in this encounter Plan of Treatment Not on file documented as of this encounter Results * XR Knee Right 3 View (07/05/2019 10:29 AM CDT) Anatomical Region Laterality Modality Lower Extremities, Knee Right Computed Radiography 07/05/2019 10:3 2 AM CDT Impressions 07/05/2019 10:32 AM CDT Normal joint spaces of both knees. Electronically signed by: Cl Romero M.D. Narrative 07/05/2019 10:32 AM CDT EXAMINATION: Right knee 3 views HISTORY: Right knee pain FINDINGS: 3 views of the right knee including PA and tangential patellar views of both knees were performed without prior comparison. There is a small osteochondroma arising along the medial aspect of the right distal femur. There is lateral tilting of both patella. There is a trace right knee joint effusion. There is no acute fracture of the right knee. Joint spaces of both knees are normal. Procedure Note Cl Romero MD PhD - 07/05/2019 EXAMINATION: Right knee 3 views HISTORY: Right knee pain FINDINGS: 3 views of the right knee including PA and tangential patellar views of both knees were performed without prior comparison. There is a small osteochondroma arising along the medial aspect of the right distal femur. There is lateral tilting of both patella. There is a trace right knee joint effusion. There is no acute fracture of the right knee. Joint spaces of both knees are normal. IMPRESSION: Normal joint spaces of both knees. Electronically signed by: Cl Romero M.D. us Kendrick Soler MD IMG XR PROCEDURES Final Res ult documented in this encounter Visit Diagnoses Diagnosis Right knee pain, unspecified chronicity- Primary Chondromalacia Right knee pain, unspecified chronicity documented in this encounter Historical Medications * This list may reflect changes made after this encounter. SUMAtriptan (IMITREX) 100 mg tabletIndications :Migraine Take 100 mg by mouth once as needed for migraine added in this encounter Care Teams Dry Dip Worker Relationship Specialty Start Date End Date Kai Massey MD PCP - General Family Medicine 06/25/19 documented as of this encounter
--- OUTSIDE RECORDS SUMMARY | 2024-11-22 06:28 | XMS_ITS | Encounter Summary ---
Author Organization [facility] Address [address] [place] [address] Phone Care Team Providers Care Polymer Specialist Name Role Phone Kai Massey MD Primary Care Provider [phone] [phone] Reason for Visit * Reason Comments Nasal Congestion Encounter Details Date Type Department Care Team (Late st Contact Info) Description 09/03/2021 11:00 AM CDT Office Visit [facility]) - [facility] ENT [address] 11th [place] [address] [place] [address] Torito Butler MD [address] [place], [place] [id number] Allergic rhinitis due to other allergic trigger, unspecified seasonality (Primary Dx); Globus sensation; Cough Social History Tobacco Use Types Packs/Day Years Used Date Smoking Tobacco: Never Alcohol Use Standard Drinks/Week Comments Yes 0 (1 standard drink = 0.6 oz pur e alcohol) Sex and Gender Information Value Date Recorded Sex Assigned at Not on file 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 Gender Identity Not on file Sexual Orientation Not on file documented as of this encounter Last Filed Vital Signs Vital Sign Reading Time Taken Comments Blood Pressure 145/92 09/03/2021 10:59 AM CDT Pulse 98 09/03/2021 10:59 AM CDT Temperature - - Respiratory Rate - - Oxygen Saturation - - Inhaled Oxygen Concentration - - Weight 79.8 kg (176 lb) 09/03/2021 10:59 AM CDT Height 180.3 cm (5' 11 ) 09/03/2021 10:59 AM CDT Body Mass Index 24.55 09/03/2021 10:59 AM CDT documented in this encounter Ordered Prescriptions Prescription Sig Dispense Quantity Refills Last Filled Start Date End Date cetirizine (ZyrTEC) 5 mg tablet Take 1 tablet (5 mg total) by mouth daily 30 tablet 11 09/03/2021 09/03/2022 documented in this encounter Progress Notes * Torito Butler MD - 09/03/2021 11:00 AM CDT Images from the original note were not included. HISTORY OF PRESENT ILLNESS Mr. Greene comes to clinic today for evaluation of ongoing, Moderate: Globus sensation. This is a 2nd opinion exam; he has been seen by [facility] ENT previously. Specifically the patient describes the sensation that there is mucus in his throat that he needs to swallow. Denies habitual clear throat clearing or cough. That has been present for approximately two month(s), and has no other associated symptoms. He noted that this started after a day of hiking in the [place]. The patient has been prescribed a large number of various therapies including nasal steroids, nasalsaline rinses, nasal antihistamines, p.o. steroids, p.o. antibiotics, multiple PPIs. He has also made drastic lifestyle changes such is stopping drinking all caffeinated or alcoholic beverages, not eating more than 3 hours before bedtime, and elevating the head of his bed. All of this, except for nasal saline irrigations, has produce limited relief of symptoms. Denies mucopurulent drainage, congestion, anosmia, facial pain. He does have a history of migraine headaches. Nothing make the symptoms worse. Nothingmake the symptoms better. 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 He has a lot of anxiety related to this and why he cannot make it stop Past Medical/Surgical History Past Medical History: Diagnosis Date ??? Migraines No past surgical history on file. Past Family/Social History No family history on file. Social History Socioeconomic History ??? Marital status: Single Spouse name: Not on file ??? Number of children: Not on file ??? Years of education: Not on file ??? Highest education level: Not on file Occupational History ??? Not on file Tobacco Use ??? Smoking status: Never Smoker Substance and Sexual Activity ??? Alcohol use: Yes ??? Drug use: Never ??? Sexual activity: Not on file Other Topics Concern ??? Not on file Social History Narrative ??? Not on file Social Determinants of Health Financial Resource Strain: ??? Difficulty of Paying Living Expenses: Not on file Food Insecurity: ??? Worried About Running Out of Food in the Last Year: Not on file ??? Ran Out of Food in the Last Year: Not on file Transportation Needs: ??? Lack of Transportation (Medical): Not on file ??? Lack of Transportation (Non-Medical): Not on file Physical Activity: ??? Days of Exercise per Week: Not on file ??? Minutes of Exercise per Session: Not on file Stress: ??? Feeling of Stress : Not on file Social Connections: ??? Frequency of Communication with Friends and Family: Not on file ??? Frequency of Social Gatherings with Friends and Family: Not on file ??? Attends Adventist Services: Not on file ??? Active Member of Clubs or Organizations: Not on file ??? Attends Club or Organization Meetings: Not on file ??? Marital Status: Not on file Intimate Partner Violence: ??? Fear of Current or Ex-Partner: Not on file ??? Emotionally Abused: Not on file ??? Physically Abused: Not on file ??? Sexually Abused: Not on file Medications/Allergies/Immunizations Current Outpatient Medications Medication Sig Dispense Refill ??? cetirizine (ZyrTEC) 5 mg tablet Take 1 tablet (5 mg total) by mouth daily 30 tablet 11 ??? SUMAtriptan (IMITREX) 100 mg tablet Take 100 mg by mouth once as needed for migraine No current facility-administered medications for this visit. Allergies: Patient has no known allergies., Immunizations: Immunization History Administered Date(s) Administered ??? Pfizer SARS-CoV-2 Vaccination 02/19/2021, 03/13/2021 Review of Systems The 12 point review of systems filled out by the patient on their history form was reviewed today, and will be scanned into the encounter. Physical Exam Vital Signs: BP 145/92 Pulse 98 Ht 180.3 cm (5' 11 ) Wt 79.8 kg (176 lb) BMI 24.55 kg/m?? PHYSICAL EXAMINATION: GENERAL: Well-developed, well-nourished. Voice quality is normal. NEURO/PSYCH: Cranial nerves II- XII are grossly normal. Affect is normal. Alert and oriented. Extraocular muscles are intact. HEAD/FACE: Normocephalic; atraumatic. No facial skin lesions. Facial strength is 5/5 and the face is symmetric. EARS : External ears have no skin lesions. Hearing is grossly intact. Right - EAC patent. TM intact. Middle ear aerated. Left - EAC patent. TM intact. Middle ear aerated. NOSE: External nose has no skin lesions. Anterior rhinoscopy reveals red mucosa. ORAL CAVITY/ OROPHARYNX: Normal oral vestibule. Oral mucosa is moist without lesions. Tongue and floor of mouth are without lesions or masses. Palate has no lesions and elevates symmetrically. Tonsils are 1+. Oropharynx is clear. NECK: Trachea is midline. Thyroid is normal in size with no apparent nodules. LYMPHATIC: No cervical lymphadenopathy. MUSCULOSKELATAL: Ambulates without difficulty. Neck full range of motion. RESPIRATORY: Breathing comfortably without audible wheeze, stertor or stridor. PROCEDURE: Flexible Fiberoptic Laryngoscopy: Indications: I was unable to visualize the structures of the larynx and hypopharynx using transoralmirror. Thus, a flexible laryngoscopy was indicated to evaluate the laryngeal and pharyngeal anatomy. Procedure: The nasal cavities were topically anesthetized and decongested with 4% topical lidocaineand neosynephrine. A flexible scope was introduced into the right nasal cavity. Findings: No mucopurulence, polyps, ulcers, or lesions were seen in the nose. The nasopharynx, oropharynx, hypopharynx, and larynx were evaluated. They were normal and demonstrated no masses or lesions. The true vocal folds had normal mobility bilaterally. Arytenoid mucosa was normal. The scope wasremoved from the patient's nose and he tolerated the procedure well. RESULTS: None ASSESSMENT & PLAN Problem List Items Addressed This Visit ENT Allergic rhinitis - Primary Other Visit Diagnoses Globus sensation Cough The etiology of this patient's symptoms is [...] attention on the sensation in his throat. He is to have a CT sinuses this week ordered by his ENT at [facility]. He will also forward to us the CT. He is also going have allergy testing scheduled in a few weeks. He will follow up with me on a p.r.n. basis. ATTENDING ATTESTATION: I have seen and examined the patient. I performed the endoscopy. I agree with the findings and planof care as documented in the resident's note. Torito Butler M.D., M.A., F.A.C.S. [facility] Hand and Desk Assistant Rhinology and Anterior Skull Base Surgery [facility] [address] [place] [phone] - Office - Appointments - Clinical coordinator (Mary Alvarado LPN) - Clinical fax - Academic office fax EMAIL: [email or web address] documented in this encounter Plan of Treatment Not on file documented as of this encounter Visit Diagnoses Diagnosis Allergic rhinitis due to other allergic trigger, unspecified seasonality- Primary Globus sensation Gastrointestinal malfunction arising from mental factors Cough documented in this encounter Care Teams Polymer Specialist Relationship Specialty Start Date End Date Kai Massey MD PCP - General Family Medicine 06/25/19 documented as of this encounter
--- OUTSIDE RECORDS SUMMARY | 2024-11-22 06:28 | XMS_ITS | Encounter Summary ---
Author Organization [facility] Address [address] [place] [address] Care Team Providers Care Paper Products Inspector Name Role Phone Kai Massey MD Primary Care Provider [phone] Reason for Visit * Cardiology (Routine) - Closed Specialty Diagnoses / Procedures Referred By Controselia t Referred To Contact Diagnoses Palpitations Procedures MCT Mobile Cardiac Telemetry Event Monitor Kai Massey MD Phone: tel: fax: [facility] Referral ID Status Reason Start Date Expiration Date Visits Re quested Visits Authorized [id number] Closed 06/19/2020 07/19/2021 1 1 Encounter Details Date Type Department Care Team (Late st Contact Info) Description 07/03/2020 2:30 PM CDT Ancillary Procedure [facility] Cardiology [address] [place] [address] Palpitations Social History Tobacco Use Types Packs/Day Years Used Date Smoking Tobacco: Never Alcohol Use Standard Drinks/Week Comments Yes 0 (1 standard drink = 0.6 oz pur e alcohol) Sex and Gender Information Value Date Recorded Sex Assigned at Not on file 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 Ordering Physician Kai Massey. Prescription days being 14. Baseline date 07/03/2020 through 07/16/2020. Total time monitored being10 days 1 hour and 36 minutes. Findings Underlying normal sinus rhythm with heart rate variability between 48 and 120 beats per minute withan average heart rate of 69 beats per minute. There was no atrial fibrillation, SVT, pauses, heart block or ventricular tachycardia. Low- frequency supraventricular ectopy totaling 1831 PACs, which isless 1% ectopic burden. Occasional ventricular ectopy totaling 7252 beats (1% ectopic burden). Thisconsisted of isolated PVCs; 22 symptomatic events of skipped beat, symptom other than listed, lightheaded correlated to sinus rhythm, and generally, PVCs were present during these symptomatic events. Conclusion 1. Underlying normal sinus rhythm with average heart rate of 69 beats per minute. 2. Occasional ventricular ectopy with 1% ventricular ectopic burden, some of which did seem to correlate to patient's events/symptoms of skipped beat. 3. Low-frequency supraventricular ectopy. 4. No complex arrhythmia, heart block or pauses noted. Job ID/VF Job ID: [id number] documented in this encounter Plan of Treatment Pending Results Name Type Priority Associated Diagnoses Date /Time MCT Mobile Cardiac Telemetry Event Monitor Cardiac Services Routine Palpitations 07/03/2020 3:26 PM CDT documented as of this encounter Visit Diagnoses Diagnosis Palpitations documented in this encounter Care Teams Paper Products Inspector Relationship Specialty Start Date End Date Kai Massey MD PCP - General Family Medicine 06/25/19 documented as of this encounter
--- OUTSIDE RECORDS SUMMARY | 2024-11-22 06:28 | XMS_ITS | Encounter Summary ---
Author Organization [facility] Address [address] [place] [address] Phone Care Team Providers Care Lacrosse Player Name Role Phone Kai Massey MD Primary Care Provider [phone] [phone] Encounter Details Date Type Department Care Team (Late st Contact Info) Description 09/19/2021 Telephone [facility] Advanced Medicine ([facility]) - [facility] ENT [address] [facility] 11th [place] [address] [place] [id number] Torito Butler MD [address] [place], [place] [id number] Social History Tobacco Use Types Packs/Day Years Used Date Smoking Tobacco: Never Alcohol Use Standard Drinks/Week Comments Yes 0 (1 standard drink = 0.6 oz pur e alcohol) Sex and Gender Information Value Date Recorded Sex Assigned at Not on file 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 Butler reviewed his CT scan. Dr. Butler said it showedminimal sinusitis and no surgery is recommended. He recommended another CT in a few months to see if changes but not contributing to his throat problems. Also pt to check with Dr. Krishna. Pt understood. documented in this encounter Plan of Treatment Not on file documented as of this encounter Visit Diagnoses Not on filedocumented in this encounter Care Teams Lacrosse Player Relationship Specialty Start Date End Date Kai Massey MD PCP - General Family Medicine 06/25/19 documented as of this encounter
--- OUTSIDE RECORDS SUMMARY | 2024-11-22 06:28 | XMS_ITS | Encounter Summary ---
Author Organization [facility] Address [address] [place] [address] Care Team Providers Care Supervisor Microwave Name Role Phone Kai Massey MD Primary Care Provider [phone] [phone] Encounter Details Date Type Department Care Team (Latest Contact Info) Description 09/17/2021 6:00 PM CDT - 09/17/2021 11:59 PM CDT Hospital Encounter [facility] [address] [place] [address] Discharge Disposition: Discharge to home or self care Social History Tobacco Use Types Packs/Day Years Used Date Smoking Tobacco: Never Alcohol Use Standard Drinks/Week Comments Yes 0 (1 standard drink = 0.6 oz pur e alcohol) Sex and Gender Information Value Date Recorded Sex Assigned at Not on file 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 Gender Identity Not on file Sexual Orientation Not on file documented as of this encounter Medications at Time of Discharge SUMAtriptan (IMITREX) 100 mg tabletIndication s:Migraine Take 100 mg by mouth once as needed for migraine cetirizine (ZyrTEC) 5 mg tablet Take 1 tablet (5 mg total) by mouth daily 30 tablet 11 09/03/2021 09/03/2022 documented as of this encounter Discharge Disposition Disposition Code Departure Means Destination Discharge to home or self care documented in this encounter Plan of Treatment Not on file documented as of this encounter Procedures Procedure Name Priority Date/Time Associated Diagnosis Comments NEURO CT MR OUTSIDE REFERENCE Routine 09/17/2021 6:00 PM CDT Diagnosis unknown documented in this encounter Results * Neuro CT MR Outside Reference (09/17/2021 6:00 PM CDT) Impressions [facility] - 09/17/2021 6:00 PM CDT These images are for Reference purposes only and have not been reviewed by [facility]. ??There will be no report generated by a [facility]. Narrative [facility] - 09/17/2021 6:00 PM CDT EXAMINATION: ??Images For Reference Purposes Only us Torito Butler MD IMG CT PROCEDURES Final Result [facility] documented in this encounter Visit Diagnoses Not on filedocumented in this encounter Care Teams Supervisor Microwave Relationship Specialty Start Date End Date Kai Massey MD PCP - General Family Medicine 06/25/19 documented as of this encounter
--- OUTSIDE RECORDS SUMMARY | 2024-11-22 06:28 | XMS_ITS | Encounter Summary ---
Author Organization [facility] Healthcare Address [address] [place] [address] Care Team Providers Care Hand Striper Name Role Phone Kai Massey MD Primary Care Provider +1 -[phone] Reason for Referral * Diagnostic Imaging (Routine) - Closed Specialty Diagnoses / Procedures Referred By Contac t Referred To Contact Diagnoses Right knee pain, unspecified chronicity Procedures XR Knee Right 3 View Kendrick Soler MD Phone: tel: fax: [facility] [place] Referral ID Status Reason Start Date Expiration Date Visits Re quested Visits Authorized [id number] Closed 07/05/2019 01/13/2021 1 1 Reason for Visit * Diagnostic Imaging (Routine) - Closed Specialty Diagnoses / Procedures Referred By Contac t Referred To Contact Diagnoses Right knee pain, unspecified chronicity Procedures XR Knee Right 3 View Kendrick Soler MD Phone: tel: fax: [facility] Referral ID Status Reason Start Date Expiration Date Visits Re quested Visits Authorized [id number] Closed 07/05/2019 01/13/2021 1 1 Encounter Details Date Type Department Care Team (Latest Contact Info) Description 07/05/2019 10:20 AM CDT - 07/05/2019 11:59 PM CDT Hospital Encounter [facility] [id number] [place] [address] Kendrick Soler MD [address] [place] [address] [address] [place] [address] Right knee pain, unspecified chronicity Discharge Disposition: Discharge to home or self care Social History Tobacco Use Types Packs/Day Years Used Date Smoking Tobacco: Never Alcohol Use Standard Drinks/Week Comments Yes 0 (1 standard drink = 0.6 oz pur e alcohol) Sex and Gender Information Value Date Recorded Sex Assigned at Not on file Legal Sex Male 11:[address]GE Gender Identity Not on file Sexual Orientation Not on file documented as of this encounter Medications at Time of Discharge SUMAtriptan (IMITREX) 100 mg tabletIndications :Migraine Take 100 mg by mouth once as needed for migraine documented as of this encounter Discharge Disposition Disposition Code Departure Means Destination Discharge to home or self care documented in this encounter Plan of Treatment Not on file documented as of this encounter Procedures Procedure Name Priority Date/Time Associated Diagnosis Comments XR KNEE RIGHT 3 VIEWS Schedule Routine, Read Routine (OP Routine) 07/05/2019 10:29 AM CDT Right knee pain, unspecified chronicity documented in this encounter Results * XR Knee Right [...] Visit Diagnoses Diagnosis Right knee pain, unspecified chronicity documented in this encounter Care Teams Hand Striper Relationship Specialty Start Date End Date Kai Massey MD PCP - General Family Medicine 06/25/19 documented as of this encounter
--- OUTSIDE RECORDS SUMMARY | 2024-11-22 10:57 | XMS_ITS | Encounter Summary ---
Author Organization [facility] Address [address] [place] [address] Care Team Providers Care Printed Circuit Boards Pinner Name Role Phone Kai Massey MD Primary Care Provider +1- [phone] Reason for Visit * Reason Onset Date Comments Med Question 08/17/2021 Encounter Details Date Type Department Care Team (Late st Contact Info) Description 08/17/2021 Telephone [facility] [address] [place] [phone] Sabina Duarte, CERTIFIED TUMOR REGISTRAR-CLOTHES SEPARATOR [address] [facility] [address] [place] [phone] Med Question Social History Tobacco Use Types [...] on filedocumented in this encounter Care Teams Printed Circuit Boards Pinner Relationship Specialty Start Date End Date Kai Massey MD [facility] [place] [address] PCP - General Family Medicine 08/08/21 documented as of this encounter
--- OUTSIDE RECORDS SUMMARY | 2024-11-22 10:57 | XMS_ITS | Encounter Summary ---
Author Organization [facility] Address [address] [place], [place] [address] [address] Care Team Providers Care Field Scout Name Role Phone Kai Massey MD Primary Care Provider +1- [phone] Reason for Visit * Reason Comments Throat Culture Encounter Details Date Type Department Care Team (Late st Contact Info) Description 02/13/2023 4:00 PM CDT Office Visit [facility] [address] [facility] [address] [place] [address] Sabina Duarte, NENA-MONIKA [address] [facility] [address] [place] [address] Neck pain (Primary Dx) Social [...] ??? azelastine (ASTELIN) 0.1 % nasal spray Burns 1 (one) spray into each nostril 2 times daily (Patient not taking: Reported on 09/28/2021) 30 mL 5 ??? esomeprazole (NEXIUM) 40 MG capsule Take 1 (one) capsule by mouth daily before breakfast (Patient not taking: Reported on 09/28/2021) 30 capsule 2 ??? finasteride (Propecia) 1 MG tablet Take 1 (one) tablet by mouth once daily ??? ipratropium (ATROVENT) 0.03 % nasal spray Burns 1-2 sprays into each nostril 4 times [...] Cervicalgia documented in this encounter Care Teams Field Scout Relationship Specialty Start Date End Date Kai Massey MD [address] [place] [phone] PCP - General Family Medicine 08/08/21 documented as of this encounter
--- OUTSIDE RECORDS SUMMARY | 2024-11-22 10:57 | XMS_ITS | Encounter Summary ---
Author Organization [facility] Address [address] [facility] [address] [place] [address] Care Team Providers Care Pbx Wire Chief Name Role Phone Kai Massey MD Primary Care Provider +1 -[phone] Reason for Visit * Cardiology (Routine) - Closed Specialty Diagnoses / Procedures Referred By Controselia t Referred To Contact Diagnoses Palpitations Procedures MCT Mobile Cardiac Telemetry Event Monitor Kai Massey MD Phone: tel: fax: [facility] Referral ID Status Reason Start Date Expiration Date Visits Re quested Visits Authorized [id number] Closed 06/19/2020 07/19/2021 1 1 Encounter Details Date Type Department Care Team (Late st Contact Info) Description 07/03/2020 2:30 PM CDT Ancillary Procedure 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 Job ID/VF Job ID: [id number] documented in this encounter Plan of Treatment Pending Results Name Type Priority Associated Diagnoses Date /Time MCT Mobile Cardiac Telemetry Event Monitor Cardiac Services Routine Palpitations 07/03/2020 3:26 PM CDT documented as of this encounter Visit Diagnoses Diagnosis Palpitations documented in this encounter Care Teams Pbx Wire Chief Relationship Specialty Start Date End Date Kai Massey MD PCP - General Family Medicine 06/25/19 documented as of this encounter
--- OUTSIDE RECORDS SUMMARY | 2024-11-22 10:57 | XMS_ITS | Clinical Summary ---
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
--- OUTSIDE RECORDS SUMMARY | 2024-11-22 10:57 | XMS_ITS | Referral Summary ---
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
--- OUTSIDE RECORDS SUMMARY | 2024-11-22 10:57 | XMS_ITS | Encounter Summary ---
Author Organization [facility] Address [address] [place] [address] Care Team Providers Care Shift Foreman Name Role Phone Kai Massey MD Primary Care Provider +1- [phone] Reason for Visit * Reason Comments Throat Problem Encounter Details Date Type Department Care Team (Late st Contact Info) Description 05/07/2023 2:00 PM CDT Office Visit [facility] - ENT [address] [place] [address] [place] [address] Douglas Tovar MD [address] [place] [address] Globus sensation (Primary Dx); Post-nasal drip; Throat [...] the following: Okay to try the following buttermilk drier operator: Flonase (fluticasone)/Rhinocort (budesonide)/ Nasocort (triamcinolone), or other [...] you dare]) Tomatoes or tomato based foods Altha foods (fried food, fast food) Caffeine Caffeinated [...] can decrease reflux. Thank you for visiting [facility] Otolaryngology - Head & Neck [...] an appointment, please call our office at [phone] Friday through Friday from 8:30 am to4:30 pm. You can also request a routine appointment through your [employer] account. Prescription Refills Contact your pharmacy to [...] the medical exchange at and ask the hemstitching machine operator to page the ENT physician zoning technician. *Caller ID blocking service will need to be turned off for your call to be returned. We also specialize in Hearing Aids, Allergy testing, swallowing disorders, voice problems, cancer diagnosis, and so much more. Visit our website at [email or web address] for information about our practice and an [...] present documented in this encounter Care Teams Shift Foreman Relationship Specialty Start Date End Date Kai Massey MD [address] [place] [phone] PCP - General Family Medicine 08/08/21 documented as of this encounter
--- OUTSIDE RECORDS SUMMARY | 2024-11-22 10:57 | XMS_ITS | Encounter Summary ---
Author Organization [facility] Address [address] [place] [address] Care Team Providers Care Podiatric Assistant Name Role Phone Unavailable Primary Care Provider Unavailabl e Encounter Details Date Type Department Care Team (Late st Contact Info) Description 09/18/2020 Lab Requisition [facility] [place] [facility] Community Testing [facility] [address] [place] [address] [place] [address] [place] [address] Social History Tobacco Use Types Packs/Day Years [...]
--- OUTSIDE RECORDS SUMMARY | 2024-11-22 10:57 | XMS_ITS | Encounter Summary ---
Author Organization [facility] Address [address] [place] [address] Care Team Providers Care Biopharmaceutical Rep Name Role Phone Kai Massey MD Primary Care Provider +1- [phone] Encounter Details Date Type Department Care Team (Late st Contact Info) Description 08/08/2021 10:30 AM CDT Office Visit [facility] OT[facility] [address] [facility] [address] [place] [address] Sabina Duarte, TARGET AIRCRAFT CONTROLLER-WASTE DISPOSAL PLANT OPERATOR [address] [facility] [address] [place] [address] Migraine without aura and without [...] 10:38 AM CDT Thank you for visiting [facility] Otolaryngology - Head & Neck Surgery. [...] an appointment, please call our office at [phone] Friday through Friday from 8:30 am to4:30 pm. You can also request a routine appointment through your [email or web address] account. ??? Prescription Refills Contact your pharmacy [...] call the medical exchangeat and ask the brick and tile making machine operator to page the ENT physician conservation of resources commissioner. *Caller ID blocking service will need to be turned off for your call to be returned. We also specialize in Hearing Aids, Allergy testing, swallowing disorders, voice problems, cancer diagnosis, and so much more. Visit our website at [email or web address] for information about our practice and an interactive health encyclopedia. Thank you for visiting [facility] Otolaryngology - Head & Neck Surgery. [...] an appointment, please call our office at [phone] Friday through Friday from 8:00 am to4:30 pm. You can also request a routine appointment through your [email or web address] account. ??? Prescription Refills Contact your pharmacy [...] the medical exchange at and ask the brick and tile making machine operator to page the ENT physician conservation of resources commissioner. *Caller ID blocking service will need to be turned off for your call to be returned. We also specialize in Hearing Aids, Allergy testing, swallowing disorders, voice problems, cancer diagnosis, and so much more. Visit our website at [email or web address] for information about our practice and an interactive health encyclopedia. Thank you for visiting [facility] Otolaryngology - Head & Neck Surgery. [...] an appointment, please call our office at [phone] Friday through Friday from 8:00 am to4:30 pm. You can also request a routine appointment through your [email or web address] account. ??? Prescription Refills Contact your pharmacy [...] the medical exchange at and ask the brick and tile making machine operator to page the ENT physician conservation of resources commissioner. *Caller ID blocking service will need to be turned off for your call to be returned. We also specialize in Hearing Aids, Allergy testing, swallowing disorders, voice problems, cancer diagnosis, and so much more. Visit our website at [email or web address] for information about our practice and an interactive health encyclopedia. documented in this encounter Progress Notes * Sabina Duarte, TARGET AIRCRAFT CONTROLLER-WASTE DISPOSAL PLANT OPERATOR - 08/08/2021 11:27 AM CDT History [...] factors documented in this encounter Care Teams Biopharmaceutical Rep Relationship Specialty Start Date End Date Kai Massey MD [address] [place] [phone] PCP - General Family Medicine 08/08/21 documented as of this encounter
--- OUTSIDE RECORDS SUMMARY | 2024-11-22 10:57 | XMS_ITS | Patient Health Summary ---
Author Organization [facility] Address [address] [place] [address] Care Team Providers Care Manager Review Name Role Phone Kai Massey MD Primary Care Provider +1- [phone] Note from Formerly named [facility],non-owned Affiliates and Associated Physician Practices is amultiple site organization consisting of ambulatory clinics and hospital sitesin [place], [place], [place] and [place]. This disclosure is being madepursuant to the Care Everywhere program and may not contain all information available regarding this patient. Last updated 18.[facility] Allergies No known active allergies Medications * [...] 25.94 05/07/2023 2:06 PM CDT Procedures * MA NASAL ENDOSCOPY,DX(Performed 09/28/2021) Performed for Acute recurrent pansinusitis, Nasal discharge, Chronic rhinitis, Chronic migraine w/oaura w/o status migrainosus, not intractable * MA LARYNGOSCOPY,FLEX FIBER,DIAGNOSTIC(Performed 07/18/2021) Performed for Throat discomfort, Globus sensation Results * MA NASAL ENDOSCOPY,DX (09/28/2021 10:28 AM CDT) Douglas [...] Tovar MD PROCEDURE/MINOR RANDHAWA RGICAL ORDERABLES * MA LARYNGOSCOPY,FLEX FIBER,DIAGNOSTIC (07/18/2021 3:04 PM CDT) Douglas [...] MD PROCEDURE/MINOR RANDHAWA RGICAL ORDERABLES Care Teams Manager Review Relationship Specialty Start Date End Date Kai Massey MD [address] [place] [phone] PCP - General Family Medicine 08/08/21
--- OUTSIDE RECORDS SUMMARY | 2024-11-22 10:57 | XMS_ITS | Encounter Summary ---
Author Organization [facility] Address [address] [facility] [place] [address] Care Team Providers Care Plate Cleaner Name Role Phone Kai Massey MD Primary Care Provider +1- [phone] Reason for Visit * Reason Onset Date Comments Immunotherapy 10/03/2021 Benefit Check Encounter Details Date Type Department Care Team (Late st Contact Info) Description 10/03/2021 Telephone [facility] [address] [place] [address] Margi Pratt Immunotherapy (Benefit Check) [...] CST [facility] : Regarding allergy testing (23893, 63536): Each are covered at 90% of allowable amount after deductible is met. Regarding immunotherapy (50552 & 77143): Each are covered at 90% of allowable amount after deductible is met. Specialist copay: 0 Calendar year plan: $ 1400 has been applied towards $ 1400 individual deductible. $ 1420.23 has been applied towards $ 3100.00 family calendar year deductible. Authorization for above codes: none Referral for above codes: npr Policy effective 10/24/2015, current. No preexisting applies. Call reference number [id number] . INING AND ASSEMBLY SUPERVISOR documented in this encounter Plan of Treatment Not on file documented as of this encounter Visit Diagnoses Not on filedocumented in this encounter Care Teams Plate Cleaner Relationship Specialty Start Date End Date Kai Massey MD [address] [place] [phone] PCP - General Family Medicine 08/08/21 documented as of this encounter
--- OUTSIDE RECORDS SUMMARY | 2024-11-22 10:57 | XMS_ITS | Continuity of Care Document ---
Author Organization [facility] Address [address] [facility] [address] [place] [address] Phone Care Team Providers Care Carrot Harvester Name Role Phone Esteban PT,MPT,ATC, Jimmie Unavailable Unavai lable Procedures Procedure Date Therapeutic Activities Therapeutic Activities Neuromuscular Re-Ed Manual Therapy Therapeutic Activities Neuromuscular Re-Ed PT Evaluation Moderate Complexity Therapeutic Activities Neuromuscular Re-Ed Advance Directives Directive Yes / No Effective Date File Name No Information Encounters Encounter Description Practice Location Reason(s) For Visit Diagnoses Date Provider Providers Copied on Encounter [facility], [address] [place] [address], [place], [place], [id number], tel:[phone] [place] No Information [address] [place], [place], [place]. Referring Provider: Kai Massey, [address] [place], [address]. tel:[phone] [facility] [address] [employer] [address] [place] [address], [id number], tel:[phone] [place] No Information [address] Esteb[address] [place], [place]. Referring Provider: Kai Massey, [address] [place], [address]. tel:[phone] [facility] [address] [employer] [facility] [place], [place], [place], [id number], tel:[phone] [place] No Information 4 [place] Referring Provider: Kai Massey, [address] [place], [address]. tel:[phone] [facility], [address], [place], [place], [id number], [place] tel:[phone] [place] No Information 4 [place] Referring Provider: Kai Massey, [address] [place], [address]. tel:[phone] Family History Family Member Type Diagnosis Age At Onset No Information Payers Payer name Insurance type Covered green party ID Authorrula velazquez(s) [facility] [id number] Social History Type Description Quantity Date Captured [...]
--- OUTSIDE RECORDS SUMMARY | 2024-11-22 10:57 | XMS_ITS | Encounter Summary ---
Author Organization [facility] Address [address] [facility] [place] [address] Care Team Providers Care Automatic Beading Lathe Operator Name Role Phone Kai Massey MD Primary Care Provider [phone]- [phone] Reason for Visit * Reason Comments Immunotherapy Allergy Testing Encounter Details Date Type Department Care Team (Late st Contact Info) Description 10/04/2021 10:00 AM FOOD SERVICE ATTENDANT Office Visit [facility] [address] [place] [phone] Douglas Tovar MD [address] [place] [address] [place] [address] Seasonal allergic rhinitis due to pollen (Primary [...] Instructions* Margi Pratt - 10/04/2021 11:51 AM FOOD SERVICE ATTENDANT See results and suggestions provided at testing [...] try applying ice, and/or Benedryl cream (obtain eszo-xjq-ploeevd), and/or take one extra dose of your [...] drops), please let Margi Ambrosio know @ [phone]. To schedule your first Allergy shot at either office, talk with Lashay Holland or Margi Lindsay at [phone]. You can only get your shots at [...] also call Margi or Lashay Holland at [phone], or message Dr. Tovar through [employer]. Follow up with Dr. Tovar in 3-5 weeks SERVICE ATTENDANT documented in this encounter Progress Notes * [...] 7 mm 2 Saline 5 mm 3 [place] Pollen * 5 mm 5 0.2 -- 4 Birch Mix * 5 mm 5 0.2 -- 5 Elm Mix 5 mm 0.2 -- 6 [place] 5 mm 0.2 -- [address] [place] [place] 5 mm 0.2 -- 8 Glycerine 5 [...] [place] 5 mm 5 0.2 -- 8 Bulgarian Thistle 7 mm ep 0.2 2 Battery C left forearm, percutaneously, level 4: right upper arm intradermally: Site Antigen Wheal Dilution # 6 Dilution # 5 Dilution # 4 Dilution # 3 Dilution # 2 Dilution # 1 ITVol. (ml) Initial IT dilution 1 [place] Mix 5 mm 5 0.2 -- 2 [...] myself. Douglas Tovar MD 10/08/2021 10:20 AM SERVICE ATTENDANT documented in this encounter Plan of Treatment Not on file documented as of this encounter Visit Diagnoses Diagnosis Seasonal allergic rhinitis due to pollen- Primary Allergic rhinitis due to insect Allergic rhinitis due to cats Allergic rhinitis due to animal (cat) (dog) hair and dander Allergic rhinitis due to mold documented in this encounter Care Teams Automatic Beading Lathe Operator Relationship Specialty Start Date End Date Kai Massey MD [address] [place] [phone] PCP - General Family Medicine 08/08/21 documented as of this encounter
--- OUTSIDE RECORDS SUMMARY | 2024-11-22 10:57 | XMS_ITS | Encounter Summary ---
Author Organization [facility] Address [address] [place], [place] [address] [address] Care Team Providers Care Commercial Appraiser Name Role Phone Kai Massey MD Primary Care Provider +1- [phone] Reason for Visit * Reason Comments Throat Problem Encounter Details Date Type Department Care Team (Late st Contact Info) Description 08/22/2021 11:00 AM CDT Office Visit [facility] OTOLARYNGOLOGY [address] [facility] [facility], [address] [place] [address] Douglas Tovar MD [facility] [place] [address] Migraine without aura and without status migrainosus, [...] 11:12 AM CDT Thank you for visiting [facility] Otolaryngology - Head & Neck Surgery. We [...] an appointment, please call our office at [phone] Friday through Friday from 8:30 am to4:30 pm. You can also request a routine appointment through your yWorld account. ??? Prescription Refills Contact your pharmacy [...] the medical exchange at and ask the tag machine operator to page the ENT physician ship construction teacher. *Caller ID blocking service will need to be turned off for your call to be returned. We also specialize in Hearing Aids, Allergy testing, swallowing disorders, voice problems, cancer diagnosis, and so much more. Visit our website at [email or web address] for information about our practice and [...] Thoughthis only temporarily feels better. Dr. Duarte, AUTOMATED ACCESS SYSTEMS TECHNICIAN prescribed Nexium for headaches, began on Friday. No hx of allergy testing nor allergy shots No hx of sinus imaging. No hx of DIRECTOR RECORDS MANAGEMENT therapy. Review of Systems A 12-system review [...] headaches documented in this encounter Care Teams Commercial Appraiser Relationship Specialty Start Date End Date Kai Massey MD [address] [place] [phone] PCP - General Family Medicine 08/08/21 documented as of this encounter
--- OUTSIDE RECORDS SUMMARY | 2024-11-22 10:57 | XMS_ITS | Clinical Summary ---
Author Organization [facility] Address [address] [facility] [place] [address] Care Team Providers Care Editorial Assistant Name Role Phone Kai Massey MD Primary Care Provider +1- [phone] Source Comments [facility],non-owned Affiliates and Associated Physician Practices is amultiple site organization consisting of ambulatory clinics and hospital sitesin [place], [place], [place] and [place]. This disclosure is being madepursuant to the Care Everywhere program and may not contain all information available regarding this patient. Last updated 18.[facility] [employer] Allergies No known active allergies Medications * [...] Department Care Team Description 11/18/2024 Lab Requisition [facility] - Pathology Lab [address] [place] [address] Sudhakar Pagan MD Illness, unspecified [...] age to complete this topic Care Teams Editorial Assistant Relationship Specialty Start Date End Date Kai Massey MD [address] [place] [address] PCP - General Family Medicine 08/08/21
--- OUTSIDE RECORDS SUMMARY | 2024-11-22 10:57 | XMS_ITS | Encounter Summary ---
Author Organization [facility] Address [address] [facility] [place] [address] Care Team Providers Care Bow Making Machine Operator Name Role Phone Kai Massey MD Primary Care Provider +1- [phone] Encounter Details Date Type Department Care Team [...] on filedocumented in this encounter Care Teams Bow Making Machine Operator Relationship Specialty Start Date End Date Kai Massey MD [address] [place] [phone] PCP - General Family Medicine 08/08/21 documented as of this encounter
--- OUTSIDE RECORDS SUMMARY | 2024-11-22 10:57 | XMS_ITS | Referral Summary ---
Author Organization [facility] Address [address] [facility] [place] [address] Care Team Providers Care Abrasive Sawyer Name Role Phone Kai Massey MD Primary Care Provider +1- [phone] Source Comments [facility],non-owned Affiliates and Associated Physician Practices is amultiple site organization consisting of ambulatory clinics and hospital sitesin [place], [place], [place] and [place]. This disclosure is being madepursuant to the Care Everywhere program and may not contain all information available regarding this patient. Last updated 18.[facility] Encounters Date Type Department Care Team Description 11/18/2024 Lab Requisition [facility] - Pathology Lab [address] [place] [phone] Sudhakar Pagan MD Illness, unspecified from Last [...] of Treatment Not on file Care Teams Abrasive Sawyer Relationship Specialty Start Date End Date Kai Massey MD [address] [place] [phone] PCP - General Family Medicine 08/08/21
--- OUTSIDE RECORDS SUMMARY | 2024-11-22 10:57 | XMS_ITS | Encounter Summary ---
Author Organization [facility] Address [address] [place] [address] Phone Care Team Providers Care Lace Machine Operator Name Role Phone Kai Massey MD Primary Care Provider +1 [phone] Encounter Details Date Type Department Care Team (Late st Contact Info) Description 09/19/[address] 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
--- OUTSIDE RECORDS SUMMARY | 2024-11-22 10:57 | XMS_ITS | Encounter Summary ---
Author Organization [facility] Address [address] [place] [address] Phone Care Team Providers Care It Sales Consultant Name Role Phone Kai Massey MD Primary Care Provider [phone] -[phone] Reason for Visit * Reason Comments Nasal Congestion Encounter Details Date Type Department Care Team (Late st Contact Info) Description 09/03/2021 11:00 AM CDT Office Visit [place] [facility] - [facility] ENT [address] [facility] 11th [place] [address] [place] [address] Torito Butler MD [address] [place], [place] [phone] Allergic rhinitis due to other allergic trigger, unspecified seasonality (Primary Dx); Globus sensation; Cough Social History Tobacco Use Types Packs/Day Years Used Date Smoking Tobacco: Never Alcohol Use Standard Drinks/Week Comments Yes 0 (1 standard drink = 0.6 oz pur e alcohol) Sex and Gender Information Value Date Recorded Sex Assigned at Not on file 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 Specifically the patient describes [...] the symptoms better. 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 He has a lot of anxiety [...] and Family: Not on file ??? Attends Shinto Services: Not on file ??? Active Member [...] this week ordered by his ENT at [facility]. He will also forward to us the CT. He is also going have allergy testing scheduled in a few weeks. He will follow up with me on a p.r.n. basis. ATTENDING ATTESTATION: I have seen and examined the patient. I performed the endoscopy. I agree with the findings and planof care as documented in the resident's note. Torito Butler M.D., M.A., F.A.C.S. Professor Of Violin and Poster Rhinology and Anterior Skull Base Surgery [facility] [employer] [address] [place] [phone] - Office - Appointments - Clinical coordinator (Mary Alvarado LPN) - Clinical fax - Academic office fax EMAIL: [email or web address] documented in this encounter Plan of Treatment Not on file documented as of this encounter Visit Diagnoses Diagnosis Allergic rhinitis due to other allergic trigger, unspecified seasonality- Primary Globus sensation Gastrointestinal malfunction arising from mental factors Cough documented in this encounter Care Teams It Sales Consultant Relationship Specialty Start Date End Date Kai Massey MD PCP - General Family Medicine 06/25/19 documented as of this encounter
--- OUTSIDE RECORDS SUMMARY | 2024-11-22 10:57 | XMS_ITS | Encounter Summary ---
Author Organization [facility] Address [address] [place], [place] [address] [address] Care Team Providers Care Snailer Name Role Phone Kai Massey MD Primary Care Provider +1- [phone] Reason for Visit * Reason Comments Sinus Problem Encounter Details Date Type Department Care Team (Late st Contact Info) Description 09/28/2021 10:15 AM CDT Office Visit [facility] OTOLARYNGOLOGY [address] [facility], [address] [place] [address] Douglas Tovar MD [facility] [place] [address] Acute recurrent pansinusitis (Primary Dx); Nasal discharge; [...] *(3 tabs) nightly. Thank you for visiting [facility] Otolaryngology - Head & Neck Surgery. [...] an appointment, please call our office at [phone] Friday through Friday from 8:30 am to4:30 pm. You can also request a routine appointment through your [employer] account. ??? Prescription Refills Contact your pharmacy [...] the medical exchange at and ask the contour band saw operator vertical to page the ENT physician agricultural economics teacher. *Caller ID blocking service will need to be turned off for your call to be returned. We also specialize in Hearing Aids, Allergy testing, swallowing disorders, voice problems, cancer diagnosis, and so much more. Visit our website at [email or web address] for information about our practice [...] ??? azelastine (ASTELIN) 0.1 % nasal spray [place] 1 (one) spray into each nostril 2 [...] ??? ipratropium (ATROVENT) 0.03 % nasal spray [place] 1-2 sprays into each nostril 4 times [...] AM CDTAssociated Order(s): PROC SINUS ENDOSCOPY Procedure(s): PA NASAL ENDOSCOPY,DX Pre-Procedure Diagnose(s): Acute recurrent pansinusitis; [...] Procedure Name Priority Date/Time Associated Diagnosis Comments PA NASAL ENDOSCOPY,DX Routine 09/28/2021 10:28 AM CDT Acute recurrent pansinusitis Nasal discharge Chronic rhinitis Chronic migraine w/o aura w/o status migrainosus, not intractable documented in this encounter Results * PA NASAL ENDOSCOPY,DX (09/28/2021 10:28 AM CDT) Narrative [...] migrainosus documented in this encounter Care Teams Snailer Relationship Specialty Start Date End Date Kai Massey MD [address] [place] [phone] PCP - General Family Medicine 08/08/21 documented as of this encounter
--- OUTSIDE RECORDS SUMMARY | 2024-11-22 10:57 | XMS_ITS | Encounter Summary ---
Author Organization [facility] Address [address] [place] [address] Care Team Providers Care Manager Mail Name Role Phone Unavailable Primary Care Provider Unavailabl e Encounter Details Date Type Department Care Team (Late st Contact Info) Description 09/18/2020 3:00 PM CDT Rapid Evaluation [place] [facility] Community Testing [facility] [address] [place] [address] Social History Tobacco Use Types Packs/Day Years [...]
--- OUTSIDE RECORDS SUMMARY | 2024-11-22 10:57 | XMS_ITS | Clinical Summary ---
Author Organization [facility] Address [address] [place] [address] Care Team Providers Care Customer Sales Specialist Name Role Phone Unavailable Primary Care Provider [...]
--- OUTSIDE RECORDS SUMMARY | 2024-11-22 10:57 | XMS_ITS | Encounter Summary ---
Author Organization [facility] Address [address] [place] [address] Phone Care Team Providers Care Vice President Of Manufacturing Name Role Phone Kai Massey MD Primary Care Provider [phone] [phone] Reason for Visit * Reason Comments Dysphagia Encounter Details Date Type Department Care Team (Late st Contact Info) Description 02/07/2023 8:00 AM CDT Office Visit [place] [facility] ([facility]) - [facility] ENT [address] [facility] Advanced Medicine 11th [place] [address] [place] [address] Briana [place] [address] [facility] [address] [place] [address] Neck pain on right side (Primary Dx) Social History Tobacco Use Types Packs/Day Years Used Date Smoking Tobacco: Never Alcohol Use Standard Drinks/Week Comments Yes 0 (1 standard drink = 0.6 oz pur e alcohol) Sex and Gender Information Value Date Recorded Sex Assigned at Not on file 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 No smoking, drinks once a month. 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 2 years ago [...] THEN 1 ONCE DAILY FOR 2 DAYS (6-0-9-4-5-8-3-3-2-2-1-1) SUMAtriptan (IMITREX) 100 mg, oral, Once as [...] recorded by my staff. Briana Chávez M.D. [employer] Department of Otolaryngology-Head and Neck Surgery [facility] phone: 02/07/2023 documented in this [...] THEN 1 ONCE DAILY FOR 2 DAYS (4-6-2-5-4-4- 3-3-2-2-1-1) 01/30/2023 finasteride (PROPECIA) 1 mg tablet Take 1 mg by mouth daily 01/30/2023 Aimovig Autoinjector 140 mg/mL auto-injector 02/06/2023 added in this encounter Care Teams Vice President Of Manufacturing Relationship Specialty Start Date End Date Kai Massey MD PCP - General Family Medicine 06/25/19 documented as of this encounter
--- OUTSIDE RECORDS SUMMARY | 2024-11-22 10:57 | XMS_ITS | Encounter Summary ---
Author Organization [facility] Address [facility] [place] [address] Care Team Providers Care Shirt Finisher Name Role Phone Unavailable Primary Care Provider Unavailabl e Reason for Visit * Reason Comments Establish Care Throat Problem Encounter Details Date Type Department Care Team (Late st Contact Info) Description 07/18/2021 10:30 AM CDT Office Visit [facility] OTOLARYNGOLOGY [address] [facility] [place] [address] Douglas Tovar MD [facility] DEPT [place] [address] Throat discomfort (Primary Dx); Globus sensation; Tongue [...] you dare]) Tomatoes or tomato based foods Sproul foods (fried food, fast food) Caffeine Caffeinated [...] can decrease reflux. Thank you for visiting [facility] Otolaryngology - Head & Neck [...] an appointment, please call our office at [phone] Friday through Friday from 8:30 am to4:30 pm. You can also request a routine appointment through your [employer] account. ??? Prescription Refills Contact your pharmacy [...] the medical exchange at and ask the lathe machine operator to page the ENT physician transportation refrigeration technician. *Caller ID blocking service will need to be turned off for your call to be returned. We also specialize in Hearing Aids, Allergy testing, swallowing disorders, voice problems, cancer diagnosis, and so much more. Visit our website at [email or web address] for information about our practice and an [...] fluticasone propionate (FLONASE) 50 MCG/ACT nasal spray [place] 2 (two) sprays into each nostril once daily 16 g 3 ??? nystatin (MYCOSTATIN) [id number] UNIT/ML suspension Swish and swallow 5 mL [...] 3:04 PM CDTAssociated Order(s): PROC ENDOSCOPY-LARYNX Procedure(s): WI LARYNGOSCOPY,FLEX FIBER,DIAGNOSTIC Pre-Procedure Diagnose(s): Throat discomfort; Globus [...] Procedure Name Priority Date/Time Associated Diagnosis Comments WI LARYNGOSCOPY,FLEX FIBER,DIAGNOSTIC Routine 07/18/2021 3:04 PM CDT Throat discomfort Globus sensation documented in this encounter Results * WI LARYNGOSCOPY,FLEX FIBER,DIAGNOSTIC (07/18/2021 3:04 PM CDT) Narrative [...]
--- OUTSIDE RECORDS SUMMARY | 2024-11-22 10:57 | XMS_ITS | Encounter Summary ---
Author Organization [facility] Address [address] [place] [address] Care Team Providers Care Locomotive Switch Operator Name Role Phone Kai Massey MD Primary Care Provider +1 [phone] Encounter Details Date Type Department Care Team (Latest Contact Info) Description 09/17/2021 6:00 PM CDT - 09/17/2021 11:59 PM CDT Hospital Encounter [facility] [address] [place] [address] Discharge Disposition: Discharge to home or self care Social History Tobacco Use Types Packs/Day Years Used Date Smoking Tobacco: Never Alcohol Use Standard Drinks/Week Comments Yes 0 (1 standard drink = 0.6 oz pur e alcohol) Sex and Gender Information Value Date Recorded Sex Assigned at Not on file 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 ??There will be no report generated by a [facility] Radiologist. Narrative [facility] - 09/17/2021 6:00 PM CDT EXAMINATION: ??Images For Reference Purposes Only us Torito Butler MD IMG CT PROCEDURES Final Result [facility] documented in this encounter Visit Diagnoses Not on filedocumented in this encounter Care Teams Locomotive Switch Operator Relationship Specialty Start Date End Date Kai Massey MD PCP - General Family Medicine 06/25/19 documented as of this encounter
--- OUTSIDE RECORDS SUMMARY | 2024-11-22 10:57 | XMS_ITS | Encounter Summary ---
Author Organization [facility] Address [address] [place] [address] Care Team Providers Care Budget Clerk Name Role Phone Kai Massey MD Primary Care Provider [phone] [phone] Reason for Referral * Diagnostic Imaging (Routine) - Closed Specialty Diagnoses / Procedures Referred By Contac t Referred To Contact Diagnoses Right knee pain, unspecified chronicity Procedures XR Knee Right 3 View Kendrick Soler MD Phone: tel: fax: [facility] [place] Referral ID Status Reason Start Date Expiration Date Visits Re quested Visits Authorized [id number] Closed 07/05/2019 01/13/2021 1 1 Reason for Visit * Diagnostic Imaging (Routine) - Closed Specialty Diagnoses / Procedures Referred By Contac t Referred To Contact Diagnoses Right knee pain, unspecified chronicity Procedures XR Knee Right 3 View Kendrick Soler MD Phone: tel: fax: [facility] Referral ID Status Reason Start Date Expiration Date Visits Re quested Visits Authorized [id number] Closed 07/05/2019 01/13/2021 1 1 Encounter Details Date Type Department Care Team (Latest Contact Info) Description 07/05/2019 10:20 AM CDT - 07/05/2019 11:59 PM CDT Hospital Encounter [facility] [address] [place] [address] Kendrick Soler MD [address] [place] [address] [address] [place] [address] Right knee pain, unspecified chronicity Discharge Disposition: Discharge to home or self care Social History Tobacco Use Types Packs/Day Years Used Date Smoking Tobacco: Never Alcohol Use Standard Drinks/Week Comments Yes 0 (1 standard drink = 0.6 oz pur e alcohol) Sex and Gender Information Value Date Recorded Sex Assigned at Not on file 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
--- OUTSIDE RECORDS SUMMARY | 2024-11-22 10:58 | XMS_ITS | Encounter Summary ---
Author Organization [facility] Address [address] [place] [address] Phone Care Team Providers Care Traffic Enumerator Name Role Phone Kai Massey MD Primary Care Provider +1 -[phone] Reason for Referral * Diagnostic Imaging (Routine) - Closed Specialty Diagnoses / Procedures Referred By Contac t Referred To Contact Diagnoses Right knee pain, unspecified chronicity Procedures XR Knee Right 3 View Kendrick Soler MD Phone: tel: fax: [facility] Referral ID Status Reason Start Date Expiration Date Visits Re quested Visits Authorized [id number] Closed 07/05/2019 01/13/2021 1 1 Reason for Visit * Reason Comments Pain Encounter Details Date Type Department Care Team (Late st Contact Info) Description 07/05/2019 10:00 AM CDT Office Visit [facility] Orthopaedic Surgery [address] 2[address] [place] [address] [place] [address] [facility] [address] [place] [address] Right knee pain, unspecified chronicity (Primary Dx); Chondromalacia Social History Tobacco Use Types Packs/Day Years Used Date Smoking Tobacco: Never Alcohol Use Standard Drinks/Week Comments Yes 0 (1 standard drink = 0.6 oz pur e alcohol) Sex and Gender Information Value Date Recorded Sex Assigned at Not on file Legal Sex Male 11:07 PM LOAN COORDINATOR Gender Identity Not on file Sexual [...] which help somewhat. 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 Otherwise healthy. PAST MEDICAL HISTORY He [...] he feels that is doing okay with [id number]-[id number] ibuprofen. Follow-up as needed. All questions are an swered Cleveland Templeton MD Orthopaedic Surgery [facility] Cleveland Templeton MD dictating using [employer] software. I was present for the critical portion of the history, physical examination, and participated in the radiographic review and medical decision making for this patient. I agree with the findings in thereport of the above residence/fellow dictating using [employer] software. documented in this encounter Plan of [...] migraine added in this encounter Care Teams Traffic Enumerator Relationship Specialty Start Date End Date Kai Massey MD PCP - General Family Medicine 06/25/19 documented as of this encounter
== END 2024-11-15 19:00 | disposition home or self-care (01) | DRG 544 ==
LOC: ANHED 09:31 → ANH3MEDSUR 10:06
PROVIDERS: Emergency Medicine; Admitting Provider Family Medicine; Emergency Provider Student in an Organized Health Care Education/Training Program; PCP Family Medicine; Visit Provider Family Medicine
DX: C49.4 Malignant neoplasm of connective and soft tissue of abdomen (principal); F42.9 Obsessive-compulsive disorder, unspecified; G43.001 Migraine without aura, not intractable, with status migrainosus
CPT/HCPCS: 36415; 49180; 71045; 71275; 74174; 77012; 80053; 83690; 84484; 85025; 85610; 85730; 87637; 88305; 88342; 93005; 96374; 99285; A9270; J1885; Q9967